=== PATIENT | female | born 1935 | race Caucasian/White ===

== ENCOUNTER 2016-05-06 14:43 | Inpatient (IN) | payer OTHER, MEDICARE ==
[~2016-05-06] VITALS: Ht 149.9 cm; Wt 40.8 kg
[~2016-05-06 14:43] MED LIST: ACEPHEN650 M1 PR; ALEVE220 M1 PO; AUGMENTIN 875875 MG PO; BISAC-EVAC10 M1 PR; CHILDREN'S ASPI81 M1 PO; COMPAZINE25 M1 PR; DICYCLOMINE HCL20 M1 PO; ESCITALOPRAM OX10 MG PO; FLEET ENEMA EX230 ML RC; GAS-X125 MG PO; LOPERAMIDE2 M2 PO; MAPAP ARTHRITI650 M1 PO; MELATONIN3 M4 PO; MILK OF MA400 MG/52 PO; MULTIPLE VITAM1 EAC2 PO; OYSTER SHELL C1 EAC9 PO; PRINIVIL20 M1 PO; VITAMIN B-121000 MCG PO; ZOFRAN4 M2 PO
--- NOTE | 2016-05-06 14:47 | ED GI/GU/ABDOMINAL COMPLAINT ---
History of Present Illness General Chief Complaint: Abdominal Pain/Flank Pain Stated Complaint: BIBA FOR ABD PAIN Source: patient, family, EMS Exam Limitations: no limitations Vital Signs & Intake/Output Vital Signs & Intake/Output ED Intake and Output 05/11 0000 05/10 1200 Intake Total 480 200 Output Total Balance 480 200 Intake, IV 0 0 Intake, Oral 480 200 Number 0 0 Bowel Movements Allergies Coded Allergies: meperidine (From DEMEROL) (DIARRHEA 05/06/16) Reconcile Medications Acetaminophen (Mapap Arthritis Pain) 650 MG TABLET.ER 1 TAB PO Q4 HRS NEEDED PRN PAIN (Reported) Acetaminophen (Acephen) 650 MG SUPP.RECT 1 SUP OR Q4 HRS NEEDED PRN PAIN ( Reported) Aspirin (Children's Aspirin) 81 MG TAB.CHEW 1 TAB PO DAILY HEART HEALTH ( Reported) Augmentin (Augmentin 500-125 Tablet) 500 MG-125 MG TABLET 500 MG PO Q12 uti please start by giving one tonight and cont' BID for another 9 days. Bisacodyl (Bisac-Evac) 10 MG SUPP.RECT 1 SUPP OR DAILY NEEDED PRN CONSTIPATION (Reported) Calcium Carbonate/Vitamin D3 (Oyster Shell Calcium +D Tablet) 500 MG-200 TABLET 1 TAB PO DAILY SUPPLEMENT (Reported) Cyanocobalamin (Vitamin B-12) 1,000 MCG TABLET 1 TAB PO DAILY SUPPLEMENT ( Reported) Dicyclomine HCl 20 MG TABLET 1 TAB PO TID PRN GI (Reported) Escitalopram Oxalate 10 MG TABLET 1.5 TAB PO DAILY DEPRESSION (Reported) Lisinopril (Prinivil) 20 MG TABLET 1 TAB PO DAILY HTN (Reported) Loperamide HCl (Loperamide) 2 MG CAPSULE 1 CAP PO Q6 PRN LOOSE STOOLS ( Reported) Magnesium Hydroxide (Milk Of Magnesia) 400 MG/5 ML ORAL.SUSP 30 ML PO DAILY NEEDED PRN CONSTIPATION (Reported) Melatonin 3 MG TABLET 1 TAB PO QPM PRN SLEEP (Reported) Multivitamin (Multiple Vitamins) 1 EACH TABLET 1 TAB PO DAILY SUPPLEMENT ( Reported) Na Phos,M-B/Na Phos,Di-Ba (Fleet Enema Extra) 19 GRAM-7 GRAM/197 ML ENEMA 1 E RC DAILY PRN CONSTIPATION (Reported) Naproxen Sodium (Aleve) 220 MG CAPSULE 1 TAB PO BID PRN PAIN (Reported) Nitrofurantoin Macrocrystal (Nitrofurantoin) 50 MG CAPSULE 1 CAP PO QPM ANTIBIOTIC, INFECTION (Reported) Omeprazole 20 MG CAPSULE.DR 1 CAP PO DAILY GI (Reported) Ondansetron HCl (Zofran) 4 MG TABLET 1 TAB PO Q8P PRN NAUSEA/VOMITING ( Reported) Prochlorperazine (Compazine) 25 MG SUPP.RECT 1 SUP OR DAILY PRN NAUSEA/ VOMITING (Reported) Simethicone (Gas-X) 125 MG CAPSULE 1 TAB PO Q6-PRN PRN ABDOMINAL PAIN ( Reported) Triage Nurses Notes Reviewed? yes ? N Is pt currently ? No Onset: Abrupt Duration: day(s): (3) Timing: single episode today Quality/Severity: moderate, sharpness Severity Numbers: 10 Location: periumbilical Radiation: no radiation Activities at Onset: none No Modifying Factors: none Associated Symptoms: abdominal pain, fever/chills, nausea/vomiting HPI: 81 year old female presents to [facility] ER for chief complaint of nausea, vomiting multiple times after eating mac and cheese that her daughter had brought her for birthday lunch. She had a documented fever there. Patient states she wasn't feeling well for the past 3 days. Daughter ate the same food without any problems. Complains of pain med abdomen, weakness. No diarrhea. Denies blood in stool or vomitus. She was given a dose of zofran at the [facility] prior to arrial. Patient presents febrile, tachycardic, hypotensive. She is AAO x 3. Past History Travel History Traveled to [place] past 21 day No Medical History Any Pertinent Medical History? 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 SISTER (colon cancer). Hx Contributory? No Review of Systems Review of Systems Constitutional: Reports: fever. Denies: chills. EENTM: Reports: no symptoms. Respiratory: Denies: cough, short of breath. Cardiovascular: Denies: chest pain, palpitations. GI: Reports: abdominal pain, bloating, constipation, nausea, vomiting. Genitourinary: Denies: discharge, dysuria. Musculoskeletal: Reports: no symptoms. Skin: Reports: no symptoms. Neurological/Psychological: Reports: no symptoms. Hematologic/Endocrine: Denies: bruising, bleeding, polyuria, polydipsia. Immunologic/Allergic: Denies: splenectomy. All Other Systems: Reviewed and Negative Physical Exam Physical Exam General Appearance: well developed/nourished, alert, awake, moderate distress, obese Head: atraumatic, normal appearance Eyes: Bilateral: PERRL, EOMI. Ears, Nose, Throat, Mouth: hearing grossly normal, dry mucus membranes Neck: normal inspection, supple, full range of motion Respiratory: normal breath sounds, chest non-tender, no respiratory distress Cardiovascular: tachycardia Peripheral Pulses: 1+ radial (R), 1+ radial (L) Gastrointestinal: soft, tenderness (MID ABDOMEN), NO REBOUND OR GUARDING Back: normal inspection Extremities: normal range of motion Neurologic/Psych: awake, alert, oriented x 3, depressed affect Skin: warm/dry, diaphoresis Core Measures ACS in differential dx? No Severe Sepsis Present: Yes Septic Shock Present: Yes BC x2: Yes Lactic Acid: Yes IV ABX Broad Spectrum: Yes Focused Exam Completed: Yes NS/LR 30ml/kg w/in 3hrs: Yes IV Vasopressors started: No (PATIENT REFUSED) ED Sepsis Exam Date of Focused Sepsis Exam: 05/06/16 Time of Focused Sepsis Exam: 1450 Sepsis Cardiac Exam: Tachycardia Sepsis Resp Exam: CTA Sepsis Cap Refill Exam: >2 sec Sepsis Peripheral Pulse Exam: Weak Sepsis Peripheral Pulse Location: Radial Sepsis Skin Color Exam: Pale Skin Temp/Moisture Exam: Hot/Diaphoretic Progress Differential Diagnosis: AAA, bowel obstruction, cholecystitis, gastritis, hepatitis, hernia, ischemic bowel, inflamm bowel dis, pancreatitis, peptic ulcer , PUD/GERD, perforated viscous, SBO Plan of Care: Orders Procedure Date/time Status OXYGEN 05/10 UNK Complete OXYGEN DAILY CHARGE 05/10 UNK Complete IV FLUIDS, TYLENOL, LABS, CULTURES, CT ABDOMEN ORDERED. REPEAT FLUID BOLUS ORDERED. PATIENT REMAINS AAO X 3. STILL HYPOTENSIVE. PATIENT IS DNR/DNI. DISCUSSED POSSIBLITY OF CENTRAL LINE/PRESSORS WHICH PATIENT DOES NOT WANT. IV ABX ORDERED. CT SCAN REVEALS HYDRONEPHROSIS BILATERALLY. UNABLE TO PLACE GLEZ CATHETER SECONDARY TO PHYSICAL CHANGES ON THE PERINEUM AFTER RADIATION THERAPY. DISCUSSED WITH DR IVERSON. SUPRAPUBIC GLEZ TOO RISKY AT BEDSIDE SECONDARY TO SURGICAL HISTORY AND THAT PATIENT IS SPONTANEOUSLY DRAINING HER BLADDER. NOT A CANDIDATE FOR OR AT THIS TIME SHE IS HYPOTENSIVE. D/W HOSPITALIST AT LENGTH. WILL ADMIT TO ICU. DR IVERSON: CELL [phone] HOME [phone] (ESDRAS WRIGHT,BHASKAR) Diagnostic Imaging: Viewed by Me: Radiology Read, CT Scan. Discussed w/RAD: Radiology Read, CT Scan. Radiology Impression: PATIENT: FELICIANO SMITH PRESENT AGE: 81 PATIENT ACCOUNT NO: [id number] : 34 LOCATION: [facility] ORDERING PHYSICIAN: BHASKAR DEWITT MD SERVICE DATE: 05/06/16 EXAM TYPE: CAT - CT ABD & PELVIS W/O IV CONTRAS EXAMINATION: CT ABDOMEN AND PELVIS WITHOUT CONTRAST CLINICAL INFORMATION: Abdominal pain. Vomiting. Fever. Rule out colitis , small-bowel obstruction, and ileus. COMPARISON: CT abdomen and pelvis of 09/02, 08/31/2014 and 02/14/2013. TECHNIQUE: Multidetector volumetric imaging was performed from the superior aspect of the liver through the pubic symphysis. Sagittal and coronal reformatted images were obtained on the technologist's workstation. DLP: 533.73 mGy-cm FINDINGS: LUNG BASES: There is an incompletely seen 0.6 cm subpleural nodule at the right lung base in the lower lobe anteriorly (series 2 image 1) which is a stable finding since the previous study of February 2013. There are mild dependent changes at the lung bases. LIVER, GALLBLADDER, AND BILIARY TREE: The liver is normal in size, shape, and attenuation. No focal hepatic lesion or biliary ductal dilatation is present. The gallbladder is unremarkable with no evidence of radiopaque gallstones, gallbladder wall thickening, or obvious pericholecystic inflammatory changes. PANCREAS: Unremarkable. SPLEEN: Unremarkable. ADRENAL GLANDS: Nodular appearance of the bilateral adrenal glands is stable since previous CT of 02/14/2013. KIDNEYS AND URETERS: The kidneys are small in size and normal in attenuation. Multiple nonobstructing left renal calculi are noted including 3 to 4, 0.4 cm calculi in the upper to mid kidney. There is a staghorn-type calculus in the lower pole collecting system of the left kidney measuring 0.8 cm. A few punctate calculi are noted in the left renal lower pole collecting system. There is a 0.9 cm calculus in the left renal pelvis. No left hydronephrosis or perinephric stranding. There is moderate right hydronephrosis and right hydroureter; the hydronephrosis has mildly improved compared to last CT. Small portion of the right distal ureter is relatively narrow in caliber, remainder of the ureter is dilated. There is bilateral renal cortical thinning greater on the right compared to left. A 1.3 cm exophytic right renal upper pole cyst is again noted, without significant interval change. Please note that evaluation in the pelvis is limited due to streaking artifacts from the left total hip arthroplasty hardware. BLADDER: Significantly underdistended and therefore not optimally evaluated. GASTROINTESTINAL TRACT: There is moderate diverticulosis of the sigmoid colon and descending colon and mild diverticulosis of the remainder of the colon. No evidence of colonic wall thickening or pericolonic fat stranding. An appendix is not identified; however, there are no inflammatory changes in the expected location of the appendix. The small-bowel loops are not dilated. Tiny isolated diverticulum is noted from the terminal ileum. The stomach is decompressed. PERITONEAL CAVITY: There is no evidence of free intraperitoneal air or fluid. No inflammatory changes or nodularity are seen. ABDOMINAL WALL: No significant hernia is appreciated. LYMPH NODES: No evidence of pathologically enlarged lymph nodes. VASCULAR: Scattered calcific atherosclerosis of the aorta and significant atherosclerosis of the iliac arteries without aneurysmal dilatation. Peripherally calcified splenic artery aneurysm is noted measuring 1.6 cm in maximum dimension. PELVIC VISCERA: The uterus is not seen, likely surgically absent. The adnexa are unremarkable. OSSEOUS STRUCTURES: There is significant diffuse osseous demineralization. Note is made of bilateral pubic rami healed fractures. Left total hip arthroplasty hardware is in place. Facet arthropathy is noted in the lumbar spine. Compression fractures of the multiple lumbar vertebral bodies with the most severe compression fracture of L5 are stable compared to last study of 2014. The [id number]-[id number] compression fractures of the lower thoracic vertebral bodies from T8 to T12 are new compared to previous CT of 2014. No suspicious osseous lesion. IMPRESSION: 1. No CT evidence of colitis, ileus or small-bowel obstruction. Colonic diverticulosis without acute diverticulitis. 2. No acute or other significant abnormality is identified to explain patient's symptoms. 3. Multiple nonobstructing left renal calculi, some of the calculi are new compared to previous study with a calculus in the left renal pelvis extending into the ureteral pelvic junction. Mild interval decrease in the moderate right hydronephrosis. Persistent moderate right hydroureter. 4. Compression fractures of T9 through T12 bodies are new compared to previous CT of August 2014. DICTATED BY: GEOVANI DUMONT MD DATE/TIME DICTATED:05/06/161636 VISION CARE ASSOCIATE:JIHAN DATE/TIME TRANSCRIBED:1636 CONFIDENTIAL, DO NOT COPY WITHOUT APPROPRIATE AUTHORIZATION. < Electronically signed in Other Vendor System> SIGNED BY: TIM WRIGHT,GEOVANI [id number] CXR Impression: no acute abnormality, no infiltrates Initial ED EKG: SINUS TACHYCARDIA Rhythm Strip: sinus tachycardia Departure Departure Time of Disposition: 1924 Disposition: STILL A PATIENT Condition: Stable Clinical Impression Primary Impression: Sepsis Secondary Impressions: Abdominal pain, Fever, Hyponatremia, Renal calculi Referrals: PRAKASH WRIGHT,TIM Oswald (PCP/Family) Departure Forms: Customer Survey General Discharge Information Prescriptions: Current Visit Scripts Augmentin (Augmentin 500-125 Tablet) 500 MG PO Q12 #19 please start by giving one tonight and cont' BID for another 9 days. Admission Note Spoke With: GERALDO RODRIGUEZ MD Documentation of Exam: Documentation of any treatments & extenuating circumstances including Concerns Regarding Discharge (functional status, medication knowledge or non-compliance, living conditions, etc.) that warrant an admission rather than observation: [ICU MONITOR, IV ABX, FLUID RESUSSCITATION, MONITOR I/O, F/U CULTURES, SERIAL ABDOMINAL EXAMINATIONS, UROLOGY CONSULTATION DR IVERSON] Observation Note Spoke With: TARUN WRIGHT,SUPRIYA Physician Advisor Notified: EDUARDO WRIGHT,SHERRIE [address] Patient In: Non-ED OBS Care Area Rationale for Observation: My rational for observation is as follows [ICU MONITOR, IV ABX, F/U BLOOD CULTURES, OBTAIN URINE SAMPLE, UROGYN CONSULT]. Critical Care Note Critical Care Note Critical Care Time: 75-104 min
[2016-05-06] MEDS ORDERED: NITROFURANTOIN50 M1 PO (15:00)
[2016-05-06] MEDS ORDERED: OMEPRAZOLE20 M2 PO (15:01)
--- NOTE | 2016-05-06 15:01 | NUR ---
PT GILBERTO FROM [facility]. PER EMS PT ATE [facility] FOR LUNCH AND SINCE THEN SHE HAS BEEN HAVING ABD CRMAPING AND VOMITING AND NAUSEA. PT RECIEVED TABBY NULL FROM FACILITY. PT ARRIVES ALERT. PT WARM TO TOUCH, TEMP 101.1 AT THIS TIME. HR 120S ON MONTIOR. BP 93/53. MD TO BEDSIDE. IV EST. PT C/O ABD PAIN AT THIS TIME, STATES PAIN IS CRAMPING IN NATURE.
[2016-05-06] MEDS ORDERED: VITAMIN B-121000 MC3 PO (15:03)
--- NOTE | 2016-05-06 15:22 | NUR ---
PT MEDICATED PER EMAR AT THIS TIME.
[2016-05-06 15:30] LABS: ABSOLUTE BASOPHIL COUNT 0 /CUMM (0.0-0.2); ABSOLUTE EOSINOPHIL COUNT 0.1 /CUMM (0.0-0.7); ABSOLUTE GRANULOCYTE CT 15.5 /CUMM (1.4-6.5); ABSOLUTE LYMPH COUNT 0.6 /CUMM (1.2-3.4); ABSOLUTE MONOCYTE COUNT 0.7 /CUMM (0.10-0.60); BASOPHIL % 0.2 % (0.0-2.0); EOSINOPHIL % 0.5 % (0-5); HEMATOCRIT 37.6 % (37-47); MEAN CORPUSCULAR HGB 29.7 PG (27.0-31.0); MEAN CORPUSCULAR HGB CONC 32.4 G/DL (33.0-37.0); MEAN CORPUSCULAR VOLUME 91.5 FL (81.0-99.0); MEAN PLATELET VOLUME 7.4 FL (7.4-10.4); PLATELET COUNT 433 /CUMM (130-400); RBC DISTRIBUTION WIDTH 15.1 % (11.5-14.5); RED BLOOD CELL CT 4.11 /CUMM (4.20-5.40)
[2016-05-06 15:32] LABS: GRANULOCYTE % 91.4 % (42.2-75.2)
[2016-05-06 15:35] LABS: PT 13.6 SEC (9.4-12.5); PTT 29 SEC (25-37)
--- NOTE | 2016-05-06 16:18 | NUR ---
PTS BP 64/40 AT THIS TIME. MD AWARE AND PT BEDSIDE. SECOND IV EST. NORMAL SALINE INFUSING PER ORDER. PT APPEARS CONFSUED AT TIME. SATS 88-90% ON ROOM AIR. PT PLACED ON 2L NC AND SATS INCREASED TO 97% AT THIS TIME.HR 80s ON MONTIOR. BLOD CULTURES X2 DRAWN ADN SENT TO LAB. IV ROCEPHIN GIVEN AT THIS TIME.
--- NOTE | 2016-05-06 16:31 | NUR ---
ATTEMPTED TO SRAIGHT CATH PT. PT NOTED WITH HARDNESS AND SWELLING TO LABIA. MD TO BEDSIDE. PER MD, PT IS NOT TO BE STRAIGHT CATH'D. U-BAG IN PLACE. PER PT AND DAUGHTER, PT HAS HX OF RADIATION PT GROIN AREA FOR CA AND THE PERIAREA HAS BEEN LIKE THAT SINCE. PERICARE PROVIDED AT THIS TIME.
--- NOTE | 2016-05-06 16:44 | NUR ---
PT TO AND FROM CT SCAN ON CONTRACT ACCOUNTANT WITH THIS RN IN ATTENDANCE AND MD. PT BACK IN ROOM. BP 97/53 AT THIS TIME. TEMP 99.8. PT REMAINS ALERT AND CONFUSED AT TIMES. PER DAUGHTER THIS IS NORMAL MENTATION FOR PT.
--- NOTE | 2016-05-06 16:46 | NUR ---
IV FLAGYL INFUSING PER ORDER AT THIS TIME
--- NOTE | 2016-05-06 17:39 | CT SCAN REPORT ---
EXAMINATION: CT ABDOMEN AND PELVIS WITHOUT CONTRAST CLINICAL INFORMATION: Abdominal pain. Vomiting. Fever. Rule out colitis, small-bowel obstruction, and ileus. COMPARISON: CT abdomen and pelvis of 09/02/2014, 08/31/2014 and 02/14/2013. TECHNIQUE: Multidetector volumetric imaging was performed from the superior aspect of the liver through the pubic symphysis. Sagittal and coronal reformatted images were obtained on the technologist's workstation. DLP: 533.73 mGy-cm FINDINGS: LUNG BASES: There is an incompletely seen 0.6 cm subpleural nodule at the right lung base in the lower lobe anteriorly (series 2 image 1) which is a stable finding since the previous study of February 2013. There are mild dependent changes at the lung bases. LIVER, GALLBLADDER, AND BILIARY TREE: The liver is normal in size, shape, and attenuation. No focal hepatic lesion or biliary ductal dilatation is present. The gallbladder is unremarkable with no evidence of radiopaque gallstones, gallbladder wall thickening, or obvious pericholecystic inflammatory changes. PANCREAS: Unremarkable. SPLEEN: Unremarkable. ADRENAL GLANDS: Nodular appearance of the bilateral adrenal glands is stable since previous CT of 02/14/2013. KIDNEYS AND URETERS: The kidneys are small in size and normal in attenuation. Multiple nonobstructing left renal calculi are noted including 3 to 4, 0.4 cm calculi in the upper to mid kidney. There is a staghorn-type calculus in the lower pole collecting system of the left kidney measuring 0.8 cm. A few punctate calculi are noted in the left renal lower pole collecting system. There is a 0.9 cm calculus in the left renal pelvis. No left hydronephrosis or perinephric stranding. There is moderate right hydronephrosis and right hydroureter; the hydronephrosis has mildly improved compared to last CT. Small portion of the right distal ureter is relatively narrow in caliber, remainder of the ureter is dilated. There is bilateral renal cortical thinning greater on the right compared to left. A 1.3 cm exophytic right renal upper pole cyst is again noted, without significant interval change. Please note that evaluation in the pelvis is limited due to streaking artifacts from the left total hip arthroplasty hardware. BLADDER: Significantly underdistended and therefore not optimally evaluated. GASTROINTESTINAL TRACT: There is moderate diverticulosis of the sigmoid colon and descending colon and mild diverticulosis of the remainder of the colon. No evidence of colonic wall thickening or pericolonic fat stranding. An appendix is not identified; however, there are no inflammatory changes in the expected location of the appendix. The small-bowel loops are not dilated. Tiny isolated diverticulum is noted from the terminal ileum. The stomach is decompressed. PERITONEAL CAVITY: There is no evidence of free intraperitoneal air or fluid. No inflammatory changes or nodularity are seen. ABDOMINAL WALL: No significant hernia is appreciated. LYMPH NODES: No evidence of pathologically enlarged lymph nodes. VASCULAR: Scattered calcific atherosclerosis of the aorta and significant atherosclerosis of the iliac arteries without aneurysmal dilatation. Peripherally calcified splenic artery aneurysm is noted measuring 1.6 cm in maximum dimension. PELVIC VISCERA: The uterus is not seen, likely surgically absent. The adnexa are unremarkable. OSSEOUS STRUCTURES: There is significant diffuse osseous demineralization. Note is made of bilateral pubic rami healed fractures. Left total hip arthroplasty hardware is in place. Facet arthropathy is noted in the lumbar spine. Compression fractures of the multiple lumbar vertebral bodies with the most severe compression fracture of L5 are stable compared to last study of 2014. The [id number] compression fractures of the lower thoracic vertebral bodies from T8 to T12 are new compared to previous CT of 2014. No suspicious osseous lesion. IMPRESSION: 1. No CT evidence of colitis, ileus or small-bowel obstruction. Colonic diverticulosis without acute diverticulitis. 2. No acute or other significant abnormality is identified to explain patient's symptoms. 3. Multiple nonobstructing left renal calculi, some of the calculi are new compared to previous study with a calculus in the left renal pelvis extending into the ureteral pelvic junction. Mild interval decrease in the moderate right hydronephrosis. Persistent moderate right hydroureter. 4. Compression fractures of T9 through T12 bodies are new compared to previous CT of August 2014.
--- NOTE | 2016-05-06 17:40 | NUR ---
MD AT BEDSIDE TO DISUCSS RESULTS AND PLAN OF CARE WITH PT AND FAMILY. BP 84/63 AT THIS TIME.
--- NOTE | 2016-05-06 17:42 | NUR ---
PT REQUESTING WATER, PER ITS OK FOR PT TO DRINK
--- NOTE | 2016-05-06 18:02 | NUR ---
XRAY AT BEDSIDE
--- NOTE | 2016-05-06 18:19 | RADIOLOGY REPORT ---
EXAMINATION: CHEST 1 VIEW CLINICAL INFORMATION: Fever, hypotension. COMPARISON: 08/31/2014. TECHNIQUE: An AP view of the chest is provided. FINDINGS: The cardiac silhouette is stable. The mediastinal and hilar contours are unremarkable. There are neither pleural effusions nor pneumothoraces. There are no consolidations. The osseous structures are unremarkable. IMPRESSION: No evidence for acute disease.
--- NOTE | 2016-05-06 18:41 | NUR ---
BP 76/00 WITH DOPPLER AT THIS TIME. PT REMAINS ALERT AND INTERACTING WITH STAFF MEMBERS AT THIS TIME. MD TO BEDSIDE. DAUGHTER REMAINS AT BEDSIDE
--- NOTE | 2016-05-06 18:54 | NUR ---
REPEAT LACTIC DRAWN AND SENT TO LAB. BLADDER SCANNER PERFORMED WITH RESULTS OF 0ML AT THIS TIME. MD AT BEDSIDE AND AWARE.
--- NOTE | 2016-05-06 18:56 | NUR ---
ONLY SMALL AMOUNT OF URINE IN U-BAG AT THIS TIME. NOT ENOUGH FOR URINE SAMPLE.
--- NOTE | 2016-05-06 19:24 | History & Physical ---
See Addendum General Information and HPI MD Statement: I have seen and personally examined FELICIANO SMITH and documented this H&P. The patient is a 81 year old F who presented with a patient stated chief complaint of [abdominal pain]. Source of Information: family, old records, [employer] [facility] [employer] [facility] [employer] Exam Limitations: poor historian History of Present Illness: 81-year-old obese, bed-bound woman , resident of [facility], was BIBA for abdominal pain. 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 Today the history was obtained from few [facility]. According to [employer] [facility] [employer] [facility] [employer] documentation patient is Normal state of health up until today when she developed a mild generalized made ( periumbilical) crampy abdominal pain. Her vital signs are [employer] within normal limits no fever or hypotension was detected. Patient had 2 episodes of normal bowel movements. She ate 2 bites of macaroni and cheese that her daughter brought her her afterwards she felt nauseous and vomited twice mainly food no blood. These findings are concerning for a daughter who was visiting from [place]. Ambulance was called and patient was transferred to the emergency room. Initially in the emergency room patient was hypotensive around 93/53, MAP of 66 and HR of 123 and RR 18 98% on 2lit (not her baseline). Patient received 3.5 of bolous NS and remained Hypotensive with the last BP documented in the ED chart as 76 over pulse. Patient is a very poor historian and ROS was very limited. patient denies any CP, SOB, /GI symptoms, abdominal pain, cough/sputum production ( which was also mentined by [facility] nurse). PMH: aformentioned, Medications were reconciled; SH: resident of [employer]. She got a CT scan w/o contrast, which was indicative of Multiple nonobstructing left renal calculi, some of the calculi are newcompared to previous study with a calculus in the left renal pelvis extending into the ureteral pelvic junction. Mild interval decrease in the moderate right hydronephrosis. Persistent moderate right hydroureter.Dr. Lopez was consulted but unfortunately there is nothing that could be done overnight from urology standing point. She is a restriect DNR/DNI and was admitted to ICU for observation. Allergies/Medications Allergies: Coded Allergies: meperidine (From DEMEROL) (DIARRHEA 05/06/16) Home Med list Acetaminophen (Mapap Arthritis Pain) 650 MG TABLET.ER 1 TAB PO Q4 HRS NEEDED PRN PAIN (Reported) Acetaminophen (Acephen) 650 MG SUPP.RECT 1 SUP IL Q4 HRS NEEDED PRN PAIN ( Reported) Aspirin (Children's Aspirin) 81 MG TAB.CHEW 1 TAB PO DAILY HEART HEALTH ( Reported) Bisacodyl (Bisac-Evac) 10 MG SUPP.RECT 1 SUPP IL DAILY NEEDED PRN CONSTIPATION (Reported) Calcium Carbonate/Vitamin D3 (Oyster Shell Calcium +D Tablet) 500 MG-200 TABLET 1 TAB PO DAILY SUPPLEMENT (Reported) Cyanocobalamin (Vitamin B-12) 1,000 MCG TABLET 1 TAB PO DAILY SUPPLEMENT ( Reported) Dicyclomine HCl 20 MG TABLET 1 TAB PO TID PRN GI (Reported) Escitalopram Oxalate 10 MG TABLET 1.5 TAB PO DAILY DEPRESSION (Reported) Lisinopril (Prinivil) 20 MG TABLET 1 TAB PO DAILY HTN (Reported) Loperamide HCl (Loperamide) 2 MG CAPSULE 1 CAP PO Q6 PRN LOOSE STOOLS ( Reported) Magnesium Hydroxide (Milk Of Magnesia) 400 MG/5 ML ORAL.SUSP 30 ML PO DAILY NEEDED PRN CONSTIPATION (Reported) Melatonin 3 MG TABLET 1 TAB PO QPM PRN SLEEP (Reported) Multivitamin (Multiple Vitamins) 1 EACH TABLET 1 TAB PO DAILY SUPPLEMENT ( Reported) Na Phos,M-B/Na Phos,Di-Ba (Fleet Enema Extra) 19 GRAM-7 GRAM/197 ML ENEMA 1 E RC DAILY PRN CONSTIPATION (Reported) Naproxen Sodium (Aleve) 220 MG CAPSULE 1 TAB PO BID PRN PAIN (Reported) Nitrofurantoin Macrocrystal (Nitrofurantoin) 50 MG CAPSULE 1 CAP PO QPM ANTIBIOTIC, INFECTION (Reported) Omeprazole 20 MG CAPSULE.DR 1 CAP PO DAILY GI (Reported) Ondansetron HCl (Zofran) 4 MG TABLET 1 TAB PO Q8P PRN NAUSEA/VOMITING ( Reported) Prochlorperazine (Compazine) 25 MG SUPP.RECT 1 SUP IL DAILY PRN NAUSEA/ VOMITING (Reported) Simethicone (Gas-X) 125 MG CAPSULE 1 TAB PO Q6-PRN PRN ABDOMINAL PAIN ( Reported) Compliance With Home Meds: GOOD Past History Travel History Traveled to [place] past 21 day No Medical History Neurological: NONE, NEUROPATHY EENT: cataracts, new right hydronephrosis Cardiovascular: hypertension Respiratory: NONE Gastrointestinal: colitis, Crohn's disease Hepatic: NONE Renal: NONE Musculoskeletal: spinal stenosis, FOOT DROP Psychiatric: depression Endocrine: NONE Blood Disorders: NONE Cancer(s): VAGINAL CA s/p radiation and hysterectomy [employer] BROOMC[employer] THRESHING/Reproductive: NONE History of MRSA: No History of VRE: No History of CDIFF: No Surgical History Surgical History: L HIP REPLACEMENT Past Family/Social History Family History Relations & Conditions if any MOTHER (ovarian cancer). SISTER (colon cancer). Psychosocial History Where do you live[facility] Facility Services at Home: Home Health Aide, Nursing Living Will? yes Power of Shucker/HCP? her daughter Functional Ability ADLs Needs Assist: dressing, eating, toileting, bathing. Ambulation: wheelchair-bound IADLs Needs Assist: shopping, housework, finances, food prep, telephone, transportation, medication admin. Review of Systems Review of Systems Constitutional: Reports: see HPI. EENTM: Reports: see HPI. Cardiovascular: Reports: see HPI. Respiratory: Reports: see HPI. GI: Reports: see HPI, abdominal pain. Genitourinary: Reports: see HPI. Denies: dysuria, frequency, hematuria, hesitation, nocturia, pain, urgency. Skin: Reports: see HPI. All Other Systems: Reviewed and Negative Exam & Diagnostic Data Last 24 Hrs of Vital Signs/I&O Vital Signs Date Time Temp Pulse Resp B/P Pulse O2 O2 Flow FiO2 Ox Delivery Rate 05/06 1841 99.2 80 18 76/00 98 Nasal 2.0L Cannula 05/06 1740 99.6 90 18 84/63 95 Nasal 2.0L Cannula 05/06 1645 99.8 93 18 97/53 98 Nasal 2.0L Cannula 05/06 1619 100.4 83 18 64/40 97 Nasal 2.0L Cannula 05/06 1551 100.4 05/06 1519 101.1 05/06 1504 108 18 101/58 94 Room Air 05/06 1501 94 Room Air 05/06 1450 101.1 123 18 93/53 92 Room Air Intake & Output 05/06 1600 05/06 0800 05/06 0000 Intake Total Output Total Balance Patient 160 lb Weight Physical Exam General Appearance Alert, Oriented X3, Cooperative, No Acute Distress Skin decubitus ulcer starge 1 HEENT Atraumatic Neck No JVD Lymphatic Axillary nl, Cervical nl Cardiovascular Normal S1, Normal S2, No Murmurs Lungs Clear to Auscultation, Normal Air Movement Abdomen Soft Neurological Normal Speech Extremities No Clubbing, No Cyanosis, No Edema, Normal Pulses, READINESS PARAPROFESSIONAL: normal Vascular Normal Pulses, Pulses Symmetrical Last 24 Hrs of Labs/Colby: Laboratory Tests 05/06/16 1853: Lactic Acid 1.1 05/06/16 151: Anion Gap 9, Estimated GFR > 60, BUN/Creatinine Ratio 25.0, Glucose 124 H, Serum Osmolality 290, Lactic Acid 1.6, Calcium 9.1, Total Bilirubin 0.9, AST 42 H, ALT 33, Alkaline Phosphatase 116, Troponin I 0.09, Total Protein 6.0 L, Albumin 2.7 L, Globulin 3.3, Albumin/Globulin Ratio 0.8 L, Lipase 25, PT 13.6 H, INR 1.30 H, APTT 29, CBC w Diff MAN DIFF ORDERED, RBC 4.11 L, MCV 91.5, MCH 29.7, RDW 15.1 H, MPV 7.4, Gran % 91.4 H, Lymphocytes % 3.6 L, Monocytes % 4.3, Eosinophils % 0.5, Basophils % 0.2, Absolute Granulocytes 15.5 H, Segmented Neutrophils 88 H, Band Neutrophils 4, Absolute Lymphocytes 0.6 L, Lymphocytes 4 L, Monocytes 3, Absolute Monocytes 0.7 H, Absolute Eosinophils 0.1, Basophils 1, Absolute Basophils 0, Platelet Estimate ADEQUATE, Normocytic RBCs VERIFIED, Normochromic RBCs VERIFIED, Polychromasia , PUBS MCHC 32.4 L Microbiology 05/06 1558 BLOOD: Blood Culture - RECD 05/06 151 BLOOD: Blood Culture - RECD Diagnostic Data EKG Results Sinus tachycardia Wide QRS left bundle branch block did not exist in the past EKG CXR Results No acute finding Other Results abd and pelvic CT: Multiple nonobstructing left renal calculi are noted including 3 to 4, 0.4 cm calculi in the upper to mid kidney. There is a staghorn-type calculus in the lower pole collecting system of the left kidney measuring 0.8 cm. A few punctate calculi are noted in the left renal lower pole collecting system. There is a 0.9 cm calculus in the left renal pelvis. No left hydronephrosis or perinephric stranding. There is moderate right hydronephrosis and right hydroureter; the hydronephrosis has mildly improved compared to last CT. Small portion of the right distal ureter is relatively narrow in caliber, remainder of the ureter is dilated. Assessment/Plan Assessment: 81-year-old woman with multiple comorbidities and significant past medical history was admitted for possible sepsis. Pertinent data WBC 17,000 with significant left shift or bandemia hemoglobin of 12.2 hematocrit of 37.2 platelet count 433, SOFA score : 2 possible sepsis with disorders of urinary tract considering persistent right-sided hydronephrosis. Sodium 129, potassium 4.6, AG 9 BUN 20 creatinine 0.8 lactic acid 1.6 AST 42 ALT 35 Treatment in the emergency room: Patient received 3 L and a half normal saline and 1 dose of ceftriaxone 1 dose of metronidazole. List of active problems #1 possible sepsis without evidence of end organ damage. Possible sources are A ) urinary tract, B) gastrointestinal (CT scan was negative for colitis) however colitis is not out of the picture completely. Possible bacteria is from GI ( gram negatives) and C. difficile is to be ruled out. * Admit to ICU for close observation * Chopped pur diets * Continue IV hydration normal saline goal to maintain MAP above 65 * Ins and outs; goal to maintain urine output above 0.5 mL per KG per hour * Initial lactate was negative however with a repeat the lactic acid 1 more time * Continue IV antibiotics; ceftriaxone 1000 ML per day * Send urine culture, blood cultures * check cortisol lvl * Follow urology recommendation in the a.m. on Monday regarding placement of suprapubic catheter #2 intermittent LBB and wide QRS: Patient was seen by Dr. Antonio for the same finding in 2014. Dynamic EKG changes, could be suggestive of areas of occlusion and reversible ischemia or NSTEMI. * ID needs to be ruled out- first set was negative, repeat in 6 h w/ ekg * Echocardiogram * Monitor on telemetry * Check magnesium level and repeat if necessary * Continue aspirin * Lisinopril is held- due to hypotension * Consult cardiology in the am #3 isotonic hyponatremia. serum osm of 290msom/l and calculated Serum osm of 272mosm/l. Osm Gap of 18. This finding indiactes either lab error or the prescence of active osmolar agents: paraproteins, Lipids, suger. * follow urine osm and urine lyte * follow lipid profile and TSH DNR/DNI Tylenol for pain As Ranked By This Provider Problem List: 1. Essential hypertension 2. HYSTERECTOMY 1964 3. RADIATION COLITIS 4. UTI 5. VAGINAL CANCER 1980 6. Sepsis 7. Vaginitis 8. DVT prophylaxis 9. Hydronephrosis, right 10. Abdominal pain 11. Hyponatremia 12. Renal calculi Core Measures/Miscellaneous Acute Coronary Syndrome ACS Diagnosis: No Cerebrovascular Accident CVA/TIA Diagnosis: No Congestive Heart Failure CHF Diagnosis: No Venous Thromboembolism VTE Risk Factors: Acute medical illness, Age > 40, Immobility, paresis, Obesity No Mech VTE prophylaxis d/t: No contraindications No VTE Pharm Prophylaxis d/t: No contraindications VTE Diagnosis: No VTE Type: NONE VTE Confirmed by (Test): NONE Severe Sepsis Severe Sepsis Present: No Septic Shock Septic Shock Present: No BC x2: Yes Lactic Acid: Yes IV ABX Broad Spectrum: No Focused Exam Completed: Yes NS/LR 30ml/kg w/in 3hrs: Yes IV Vasopressors started: No Miscellaneous Documentation Attending Case Discussed With: SUPRIYA MCNEIL MD Primary Care Physician: TIM RANDALL MD Patient sees these Specialists blintze roller Level of Patient Care: Critical Care (CRI) Resident Review Statement Resident Statement: examined this patient, discussed with commercial internship, agreed with commercial internship, discussed with family, reviewed EMR data (avail), discussed with nursing , discussed with case mgmt, reviewed images, amended to note Attending MD Review Statement Attending Statement Attending MD Statement: examined this patient, discuss w/resident/PA/INSURANCE EXECUTIVE, agreed w/resident/PA/INSURANCE EXECUTIVE, discussed with family, reviewed EMR data (avail), discussed with nursing, discussed with case mgmt, reviewed images, amended to note
--- NOTE | 2016-05-06 19:28 | NUR ---
MD AT BEDSIDE TO ATTEMPT TO PLACE GLEZ AT THIS TIME. UNSUCCESSFUL ATTEMPT. PT INCONTINENT ON URINE, NO URINE IN U-BAG. PERICARE PROVIDED AND NEW LINEN PLACED ON BED. PT NOTED WITH SMALL FORMED BOWEL MOVEMENT.
--- NOTE | 2016-05-06 20:26 | NUR ---
PT RESTING ON BED. NS BOLUS CONTINUES TO INFUSE. DAUGHTER REMAINS AT BEDSIDE FOR EMOTIONAL SUPPORT.
--- NOTE | 2016-05-06 21:30 | NUR ---
PT HAS A BED 112-01
--- NOTE | 2016-05-06 21:41 | NUR ---
REPORT GIVEN TO JOANN CATALAN ON ICU.
--- NOTE | 2016-05-06 22:11 | Admission Certification ---
Admission Certification Certification Statement - As attending physician, I certify that at the time of - admission, based on clinical presentation, severity of - symptoms, need for further diagnostic testing and - therapeutic interventions, and risk of adverse outcomes - without in-hospital treatment, in my clinical assessment, - this patient requires an acute hospital stay for a minimum - of two nights or longer. I have also considered psychsocial - factors such as support system, advanced age, financial - issues, cognitive issues, and failed out-patient treatments, - past re-admission history, safety of patient, and lack of - compliance as applicable. Specific rationale supporting this admission is: Abdominal pain fever possible sepsis.
--- NOTE | 2016-05-06 22:12 | NUR ---
PAGER [phone] BEEPED REGARDING EKG.
--- NOTE | 2016-05-06 22:16 | PN- Att Addend ---
Attending Addendum Attending Brief Note 81 year old white female resident of [place] comes in with abdominal pain fever hypotension possible sepsis urological origen, was pancultured started on IV antibiotics IV fluids monitoring lactic acid, CBC , cbc urologist called will see patient will also have cardiology check patient monitor EKGs and troponins. Laboratory Tests 05/06 05/06 1853 1516 Chemistry Sodium (137 - 145 mmol/L) 129 L Potassium (3.5 - 5.1 mmol/L) 4.6 Chloride (98 - 107 mmol/L) 96 L Carbon Dioxide (22 - 30 mmol/L) 24 Anion Gap (5 - 16) 9 BUN (7 - 17 mg/dL) 20 H Creatinine (0.5 - 1.0 mg/dL) 0.8 Estimated GFR (>60 ml/min) > 60 BUN/Creatinine Ratio (7 - 25 %) 25.0 Glucose (65 - 99 mg/dL) 124 H Serum Osmolality (285 - 295 MOSM/KG) 290 Lactic Acid (0.7 - 2.1 mmol/L) 1.1 1.6 Calcium (8.4 - 10.2 mg/dL) 9.1 Total Bilirubin (0.2 - 1.3 mg/dL) 0.9 AST (14 - 36 U/L) 42 H ALT (9 - 52 U/L) 33 Alkaline Phosphatase (<127 U/L) 116 Troponin I (< 0.11 ng/ml) 0.09 Total Protein (6.3 - 8.2 g/dL) 6.0 L Albumin (3.5 - 5.0 g/dL) 2.7 L Globulin (1.9 - 4.2 gm/dL) 3.3 Albumin/Globulin Ratio (1.1 - 2.2 %) 0.8 L Lipase (23 - 300 U/L) 25 Coagulation PT (9.4 - 12.5 SEC) 13.6 H INR (0.90 - 1.19) 1.30 H APTT (25 - 37 SEC) 29 Hematology CBC w Diff MAN DIFF ORDERED WBC (4.8 - 10.8 /CUMM) 17.0 H RBC (4.20 - 5.40 /CUMM) 4.11 L Hgb (12.0 - 16.0 G/DL) 12.2 Hct (37 - 47 %) 37.6 MCV (81.0 - 99.0 FL) 91.5 MCH (27.0 - 31.0 PG) 29.7 RDW (11.5 - 14.5 %) 15.1 H Plt Count (130 - 400 /CUMM) 433 H MPV (7.4 - 10.4 FL) 7.4 Gran % (42.2 - 75.2 %) 91.4 H Lymphocytes % (20.5 - 51.1 %) 3.6 L Monocytes % (1.7 - 9.3 %) 4.3 Eosinophils % (0 - 5 %) 0.5 Basophils % (0.0 - 2.0 %) 0.2 Absolute Granulocytes (1.4 - 6.5 /CUMM) 15.5 H Segmented Neutrophils (42.2 - 75.2 %) 88 H Band Neutrophils (0.0 - 5.0 %) 4 Absolute Lymphocytes (1.2 - 3.4 /CUMM) 0.6 L Lymphocytes (20.5 - 51.1 %) 4 L Monocytes (1.7 - 9.3 %) 3 Absolute Monocytes (0.10 - 0.60 /CUMM) 0.7 H Absolute Eosinophils (0.0 - 0.7 /CUMM) 0.1 Basophils (0.0 - 2.0 %) 1 Absolute Basophils (0.0 - 0.2 /CUMM) 0 Platelet Estimate (ADEQUATE) ADEQUATE Normocytic RBCs VERIFIED Normochromic RBCs VERIFIED Polychromasia PUBS MCHC (33.0 - 37.0 G/DL) 32.[address] scan results noted.
--- NOTE | 2016-05-06 22:18 | NUR ---
PAGER [phone] BEEPED.
--- NOTE | 2016-05-06 22:20 | NUR ---
PAGER [phone] BEEPED PER MOD.
--- NOTE | 2016-05-06 22:44 | NUR ---
SST AND ODEN TOP TUBES SENT TO LAB.
--- NOTE | 2016-05-06 22:47 | NUR ---
PT'S DAUGHTER ALEJANDRO FLORES WOULD LIKE TO BE CONTACTED WITH UPDATES AT [phone]
--- NOTE | 2016-05-06 23:30 | NUR ---
ADMISSION NOTE- Zeyad arrives from ER at 2300 with TELEPHONE DIRECTORY DELIVERER. Transferred to ICU bed and placed on monitors. Patient is oriented to room, staff and call system at this time. She is A&Ox3, forgetful at times, and follows commands. She has generalized weakness and is bedbound at baseline. Patient is NSR on monitor, with BBB, PAC's and PVC's noted. BP is 110/52 manually and rectal temp on admit is 98.7. Patient is found to be incontinent of stool and urine, pericare provided. There is no edema, but there is swelling,redness and hardness to patient's labia. There is also a skin tear noted to the left elbow. Patient has 2 patent peripheral IV's, with NS running at 150ml/hr. No distress noted at this time. Will monitor.
[2016-05-07 06:22] LABS: ABSOLUTE BASOPHIL COUNT 0.1 /CUMM (0.0-0.2); ABSOLUTE EOSINOPHIL COUNT 0.1 /CUMM (0.0-0.7); ABSOLUTE GRANULOCYTE CT 8.4 /CUMM (1.4-6.5); ABSOLUTE LYMPH COUNT 0.6 /CUMM (1.2-3.4); ABSOLUTE MONOCYTE COUNT 0.2 /CUMM (0.10-0.60); BASOPHIL % 0.5 % (0.0-2.0); EOSINOPHIL % 1.1 % (0-5); GRANULOCYTE % 89.7 % (42.2-75.2); HEMATOCRIT 38.4 % (37-47); MEAN CORPUSCULAR HGB 29.5 PG (27.0-31.0); MEAN CORPUSCULAR VOLUME 92.2 FL (81.0-99.0); MEAN PLATELET VOLUME 7.6 FL (7.4-10.4); PLATELET COUNT 392 /CUMM (130-400); RBC DISTRIBUTION WIDTH 15.6 % (11.5-14.5); RED BLOOD CELL CT 4.17 /CUMM (4.20-5.40)
[2016-05-07 07:15] LABS: WHITE BLOOD CELL COUNT 9.4 /CUMM (4.8-10.8)
[2016-05-07 08:00] VITALS: BP 92/60
--- NOTE | 2016-05-07 08:39 | PN- Housestaff ---
Subjective Follow-up For: sepsis of urological origin Subjective: pt seen and examined. no acute complaints except pain in her ankle. hypotensive, cont with fluid resucitation as patient denying any other agressive rx. Review of Systems Constitutional: Reports: see HPI. Objective Last 24 Hrs of Vital Signs/I&O Vital Signs Date Time Temp Pulse Resp B/P Pulse O2 O2 Flow FiO2 Ox Delivery Rate 05/10 1635 98.2 80 24 130/80 05/10 1440 98.2 80 24 130/80 93 Physical Exam General Appearance: Alert, Oriented X3, Cooperative, No Acute Distress Cardiovascular: Regular Rate, Normal S1, Normal S2, No Murmurs Lungs: Clear to Auscultation, Normal Air Movement Abdomen: Normal Bowel Sounds, Soft, No Tenderness Extremities: No Clubbing, No Cyanosis Assessment/Plan Assessment: 81-year-old woman with multiple comorbidities and significant past medical history was admitted for possible sepsis. Pertinent data WBC 17,000 with significant left shift or bandemia hemoglobin of 12.2 hematocrit of 37.2 platelet count 433, SOFA score : 2 possible sepsis with disorders of urinary tract considering persistent right-sided hydronephrosis. Sodium 129, potassium 4.6, AG 9 BUN 20 creatinine 0.8 lactic acid 1.6 AST 42 ALT 35 Treatment in the emergency room: Patient received 3 L and a half normal saline and 1 dose of ceftriaxone 1 dose of metronidazole. List of active problems #1 possible sepsis without evidence of end organ damage. Possible sources are A ) urinary tract, B) gastrointestinal (CT scan was negative for colitis) however colitis is not out of the picture completely. Possible bacteria is from GI ( gram negatives) and C. difficile is to be ruled out. * Patient admit to ICU for close observation * Chopped pure diet * Continue IV hydration normal saline goal to maintain MAP above 65 * Ins and outs; goal to maintain urine output above 0.5 mL per KG per hour * Lactic acid initial 4.8>> 2.1>> 2.6 * Continue IV antibiotics; ceftriaxone 1000 ML per day * Pending urine culture, blood cultures * Normal cortisol lvl * Urology on board, has recommended the patient is now stable for suprapubic catheter placement in OR, Dr. Spencer will attempt to place a Beckman catheter for eyes and O's monitoring as patient has been incontinent. #2 intermittent LBB and wide QRS: Patient was seen by Dr. Antonio for the same finding in 2015. Dynamic EKG changes, could be suggestive of areas of occlusion and reversible ischemia or NSTEMI. * Troponins and EKG, 0.09>> 0.15>> 0.13 * Echocardiogram pending * Monitor on telemetry * Continue aspirin * Lisinopril is held- due to hypotension * Consult cardiology to be placed with #3 isotonic hyponatremia. serum osm of 290msom/l and calculated Serum osm of 272mosm/l. Osm Gap of 18. This finding indiactes either lab error or the prescence of active osmolar agents: paraproteins, Lipids, suger. * follow urine osm and urine lyte * follow lipid profile and TSH DNR/DNI Tylenol for pain Problem List: 1. Hydronephrosis, right 2. DVT prophylaxis 3. Full code status 4. Fever 5. Abdominal pain Pain Ratin Pain Location: none Pain Goal: Remain pain free Pain Plan: mild pp Tomorrow's Labs & Rationales: icu bundle cbc
--- NOTE | 2016-05-07 10:50 | Cons- Urology ---
General Information and HPI Consulting Request Date of Consult: 05/07/16 Requested By: SUPRIYA MCNEIL MD Reason for Consult: urinary catheter requested to obtain urine culture and I/O's Source of Information: patient, family Exam Limitations: physical impairment History of Present Illness: This is an 81-year-old obese bed ridden woman who resides at [facility] home was N/V with abdominal pain. 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 Initially in the emergency room patient was hypotensive around 93 /53, MAP of 66 and HR of 123 and RR 18 98% on 2lit (not her baseline). Patient received 3.5 of bolous NS and remained Hypotensive with the last BP documented in the ED chart as 76 over pulse. Patient is a very poor historian and ROS was very limited. A noncontrast CT scan in ER showed nonobstructing left renal calculi and mild interval decrease in the moderate right hydronephrosis. Persistent moderate right hydroureter. Allergies/Medications Allergies: Coded Allergies: meperidine (From DEMEROL) (DIARRHEA 05/06/16) Home Med List: Acetaminophen (Mapap Arthritis Pain) 650 MG TABLET.ER 1 TAB PO Q4 HRS NEEDED PRN PAIN (Reported) Acetaminophen (Acephen) 650 MG SUPP.RECT 1 SUP [place] Q4 HRS NEEDED PRN PAIN ( Reported) Aspirin (Children's Aspirin) 81 MG TAB.CHEW 1 TAB PO DAILY HEART HEALTH ( Reported) Bisacodyl (Bisac-Evac) 10 MG SUPP.RECT 1 SUPP [place] DAILY NEEDED PRN CONSTIPATION (Reported) Calcium Carbonate/Vitamin D3 (Oyster Shell Calcium +D Tablet) 500 MG-200 TABLET 1 TAB PO DAILY SUPPLEMENT (Reported) Cyanocobalamin (Vitamin B-12) 1,000 MCG TABLET 1 TAB PO DAILY SUPPLEMENT ( Reported) Dicyclomine HCl 20 MG TABLET 1 TAB PO TID PRN GI (Reported) Escitalopram Oxalate 10 MG TABLET 1.5 TAB PO DAILY DEPRESSION (Reported) Lisinopril (Prinivil) 20 MG TABLET 1 TAB PO DAILY HTN (Reported) Loperamide HCl (Loperamide) 2 MG CAPSULE 1 CAP PO Q6 PRN LOOSE STOOLS ( Reported) Magnesium Hydroxide (Milk Of Magnesia) 400 MG/5 ML ORAL.SUSP 30 ML PO DAILY NEEDED PRN CONSTIPATION (Reported) Melatonin 3 MG TABLET 1 TAB PO QPM PRN SLEEP (Reported) Multivitamin (Multiple Vitamins) 1 EACH TABLET 1 TAB PO DAILY SUPPLEMENT ( Reported) Na Phos,M-B/Na Phos,Di-Ba (Fleet Enema Extra) 19 GRAM-7 GRAM/197 ML ENEMA 1 E RC DAILY PRN CONSTIPATION (Reported) Naproxen Sodium (Aleve) 220 MG CAPSULE 1 TAB PO BID PRN PAIN (Reported) Nitrofurantoin Macrocrystal (Nitrofurantoin) 50 MG CAPSULE 1 CAP PO QPM ANTIBIOTIC, INFECTION (Reported) Omeprazole 20 MG CAPSULE.DR 1 CAP PO DAILY GI (Reported) Ondansetron HCl (Zofran) 4 MG TABLET 1 TAB PO Q8P PRN NAUSEA/VOMITING ( Reported) Prochlorperazine (Compazine) 25 MG SUPP.RECT 1 SUP [place] DAILY PRN NAUSEA/ VOMITING (Reported) Simethicone (Gas-X) 125 MG CAPSULE 1 TAB PO Q6-PRN PRN ABDOMINAL PAIN ( Reported) Current Medications: Current Medications Sig/Cecily Start time Last Medication Dose Route Stop Time Status Admin Acetaminophen 325 MG ONCE ONE 05/07 0730 DC 05/07 PO 05/07 0731 0733 Acetaminophen 1,000 MG ONCE ONE 05/06 1515 DC 05/06 N/A 1 UNIT IV 05/06 1529 1519 Acetaminophen 0 .STK-MED ONE 05/06 1514 DC IV Aspirin 81 MG DAILY 05/07 1000 AC 05/07 PO 0901 Aspirin 325 MG ONCE ONE 05/06 2345 DC 05/07 PO 05/06 2346 0010 Aspirin 81 MG ONCE ONE 05/06 2345 DC PO 05/06 2346 Ceftriaxone Sodium 2,000 MG DAILY 05/07 1000 AC 05/07 IV 0900 Ceftriaxone Sodium 0 .STK-MED ONE 05/06 1617 DC .ROUTE Ceftriaxone Sodium 1,000 MG ONCE ONE 05/06 1615 DC 05/06 IV 05/06 1616 1620 Magnesium Sulfate 1 GM Q2H 05/06 2345 DC 05/07 Dextrose/Water 100 ML IV 05/07 0344 0141 Metoclopramide HCl 10 MG ONCE ONE 05/06 1515 DC 05/06 IV 05/06 1516 1519 Metoclopramide HCl 0 .STK-MED ONE 05/06 1514 DC .ROUTE Metronidazole 500 MG ONCE ONE 05/06 1615 DC 05/06 N/A 1 UNIT IV 05/06 1714 1644 Sodium Chloride 1,000 ML ONCE ONE 05/06 2330 DC 05/06 IV 05/07 0609 2330 Sodium Chloride 1,000 ML BOLUS ONE 05/06 2130 DC 05/06 IV 05/06 2329 2246 Sodium Chloride 1,000 ML BOLUS ONE 05/06 1745 DC 05/06 IV 05/06 1844 1841 Sodium Chloride 1,000 ML BOLUS ONE 05/06 1615 DC 05/06 IV 05/06 1714 1612 Sodium Chloride 500 ML BOLUS ONE 05/06 1515 DC 05/06 IV 05/06 1614 1519 Past History Medical History Blood Transfusion Hx: Yes Neurological: NEUROPATHY EENT: cataracts, new right hydronephrosis Cardiovascular: hypertension Respiratory: NONE Gastrointestinal: colitis, Crohn's disease Hepatic: NONE Renal: NONE Musculoskeletal: spinal stenosis, FOOT DROP Psychiatric: depression Endocrine: NONE Blood Disorders: NONE Cancer(s): VAGINAL CA s/p radiation and hysterectomy 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 SISTER (colon cancer). Psychosocial History Where Do You Live? [facility] Who Do You Live With? self Services at Home: Home Health Aide, Nursing Primary Language: Sami Smoking Status: Never Smoked ETOH Use: denies use Illicit Drug Use: denies illicit drug use Living Will? yes Power of Marketing Liaison/HCP? her daughter Functional Ability ADLs Needs Assist: dressing, eating, toileting, bathing. Ambulation: wheelchair-bound IADLs Needs Assist: shopping, housework, finances, food prep, telephone, transportation, medication admin. Review of Systems Review of Systems Constitutional: Reports: weakness. EENTM: Reports: no symptoms. Cardiovascular: Reports: no symptoms. Respiratory: Reports: no symptoms. GI: Reports: abdominal pain. Musculoskeletal: Reports: joint pain. Skin: Reports: no symptoms. Neurological/Psychological: Reports: no symptoms. Hematologic/Endocrine: Reports: no symptoms. Immunologic/Allergic: Reports: no symptoms. Exam & Diagnostic Data Vital Signs and I&O Vital Signs Date Time Temp Pulse Resp B/P Pulse O2 O2 Flow FiO2 Ox Delivery Rate 05/07 0857 99.5 05/07 08 99.5 126 26 92/60 95 Nasal 2.0L Cannula 05/07 08 95 Nasal 2.0L Cannula 05/07 0733 101.4 05/06 2348 99 05/06 2159 98.2 74 18 96/00 98 Nasal 2.0L Cannula 05/06 1841 99.2 80 18 76/00 98 Nasal 2.0L Cannula 05/06 1740 99.6 90 18 84/63 95 Nasal 2.0L Cannula 05/06 1645 99.8 93 18 97/53 98 Nasal 2.0L Cannula 05/06 1619 100.4 83 18 64/40 97 Nasal 2.0L Cannula 05/06 1551 100.4 05/06 1519 101.1 05/06 1504 108 18 101/58 94 Room Air 05/06 1501 94 Room Air 05/06 1450 101.1 123 18 93/53 92 Room Air Intake & Output 05/07 1600 05/07 0805/07 0000 05/06 1600 05/06 0800 05/06 0000 Intake Total 1408 3000 Output Total Balance 1408 3000 Intake, IV 1108 3000 Intake, Oral 300 Patient 40.823 kg 63.531 kg 72.575 kg Weight Physical Exam General Appearance: alert, awake, anxious, obese Head: atraumatic, normal appearance Eyes: Bilateral: normal appearance. Ears, Nose, Throat: normal ENT inspection Neck: normal inspection Respiratory: normal breath sounds Gastrointestinal: soft, non-tender Rectal: deferred Neurologic/Psych: awake, alert Cranial Nerves: normal hearing, normal speech Skin: intact, normal color, warm/dry Reproductive: very distorted vaginal anatomy. cement like firmness with no vaginal opening or urethral opening. unable to pass urethral catheter even with two nurses holding up her legs for maximal positioning. Last 24 Hours of Labs: Laboratory Tests 05/07 05/06 05/06 0445 2240 1853 Chemistry Sodium (137 - 145 mmol/L) 134 L 131 L Potassium (3.5 - 5.1 mmol/L) 4.4 4.2 Chloride (98 - 107 mmol/L) 105 103 Carbon Dioxide (22 - 30 mmol/L) 20 L 21 L Anion Gap (5 - 16) 9 7 BUN (7 - 17 mg/dL) 16 17 Creatinine (0.5 - 1.0 mg/dL) 0.8 0.7 Estimated GFR (>60 ml/min) > 60 > 60 Glucose (65 - 99 mg/dL) 89 95 Lactic Acid (0.7 - 2.1 mmol/L) 1.1 Calcium (8.4 - 10.2 mg/dL) 8.5 8.1 L Phosphorus (2.5 - 4.5 mg/dL) 2.9 3.1 Magnesium (1.6 - 2.3 mg/dL) 2.9 H 1.7 Total Bilirubin (0.2 - 1.3 mg/dL) 0.5 0.6 AST (14 - 36 U/L) 35 32 ALT (9 - 52 U/L) 38 38 Troponin I (< 0.11 ng/ml) 0.13 *H 0.15 *H Albumin (3.5 - 5.0 g/dL) 2.6 L 2.3 L Triglycerides (<150 mg/dL) 65 Cholesterol (<200 MG/DL) 69 LDL Cholesterol, Calc (65 - 129 mg/dL) 25 L HDL Cholesterol (40 - 60 mg/dL) 31 L Cholesterol/HDL Ratio (0.00 - 4.23 %) 2 TSH (0.270 - 4.200 uIU/mL) 1.790 Cortisol PM Sample (1.7 - 14.1) 10.3 Hematology CBC w Diff NO MAN DIFF REQ WBC (4.8 - 10.8 /CUMM) 9.4 RBC (4.20 - 5.40 /CUMM) 4.17 L Hgb (12.0 - 16.0 G/DL) 12.3 Hct (37 - 47 %) 38.4 MCV (81.0 - 99.0 FL) 92.2 MCH (27.0 - 31.0 PG) 29.5 RDW (11.5 - 14.5 %) 15.6 H Plt Count (130 - 400 /CUMM) 392 MPV (7.4 - 10.4 FL) 7.6 Gran % (42.2 - 75.2 %) 89.7 H Lymphocytes % (20.5 - 51.1 %) 6.6 L Monocytes % (1.7 - 9.3 %) 2.1 Eosinophils % (0 - 5 %) 1.1 Basophils % (0.0 - 2.0 %) 0.5 Absolute Granulocytes (1.4 - 6.5 /CUMM) 8.4 H Absolute Lymphocytes (1.2 - 3.4 /CUMM) 0.6 L Absolute Monocytes (0.10 - 0.60 /CUMM) 0.2 Absolute Eosinophils (0.0 - 0.7 /CUMM) 0.1 Absolute Basophils (0.0 - 0.2 /CUMM) 0.1 PUBS MCHC (33.0 - 37.0 G/DL) 32.0 L 05/06 1516 Chemistry Sodium (137 - 145 mmol/L) 129 L Potassium (3.5 - 5.1 mmol/L) 4.6 Chloride (98 - 107 mmol/L) 96 L Carbon Dioxide (22 - 30 mmol/L) 24 Anion Gap (5 - 16) 9 BUN (7 - 17 mg/dL) 20 H Creatinine (0.5 - 1.0 mg/dL) 0.8 Estimated GFR (>60 ml/min) > 60 BUN/Creatinine Ratio (7 - 25 %) 25.0 Glucose (65 - 99 mg/dL) 124 H Serum Osmolality (285 - 295 MOSM/KG) 290 Lactic Acid (0.7 - 2.1 mmol/L) 1.6 Calcium (8.4 - 10.2 mg/dL) 9.1 Total Bilirubin (0.2 - 1.3 mg/dL) 0.9 AST (14 - 36 U/L) 42 H ALT (9 - 52 U/L) 33 Alkaline Phosphatase (<127 U/L) 116 Troponin I (< 0.11 ng/ml) 0.09 Total Protein (6.3 - 8.2 g/dL) 6.0 L Albumin (3.5 - 5.0 g/dL) 2.7 L Globulin (1.9 - 4.2 gm/dL) 3.3 Albumin/Globulin Ratio (1.1 - 2.2 %) 0.8 L Lipase (23 - 300 U/L) 25 Coagulation PT (9.4 - 12.5 SEC) 13.6 H INR (0.90 - 1.19) 1.30 H APTT (25 - 37 SEC) 29 Hematology CBC w Diff MAN DIFF ORDERED WBC (4.8 - 10.8 /CUMM) 17.0 H RBC (4.20 - 5.40 /CUMM) 4.11 L Hgb (12.0 - 16.0 G/DL) 12.2 Hct (37 - 47 %) 37.6 MCV (81.0 - 99.0 FL) 91.5 MCH (27.0 - 31.0 PG) 29.7 RDW (11.5 - 14.5 %) 15.1 H Plt Count (130 - 400 /CUMM) 433 H MPV (7.4 - 10.4 FL) 7.4 Gran % (42.2 - 75.2 %) 91.4 H Lymphocytes % (20.5 - 51.1 %) 3.6 L Monocytes % (1.7 - 9.3 %) 4.3 Eosinophils % (0 - 5 %) 0.5 Basophils % (0.0 - 2.0 %) 0.2 Absolute Granulocytes (1.4 - 6.5 /CUMM) 15.5 H Segmented Neutrophils (42.2 - 75.2 %) 88 H Band Neutrophils (0.0 - 5.0 %) 4 Absolute Lymphocytes (1.2 - 3.4 /CUMM) 0.6 L Lymphocytes (20.5 - 51.1 %) 4 L Monocytes (1.7 - 9.3 %) 3 Absolute Monocytes (0.10 - 0.60 /CUMM) 0.7 H Absolute Eosinophils (0.0 - 0.7 /CUMM) 0.1 Basophils (0.0 - 2.0 %) 1 Absolute Basophils (0.0 - 0.2 /CUMM) 0 Platelet Estimate (ADEQUATE) ADEQUATE Normocytic RBCs VERIFIED Normochromic RBCs VERIFIED Polychromasia PUBS MCHC (33.0 - 37.0 G/DL) 32.4 L Imaging Results: as stated above re: CT Assessment/Plan Assessment/Plan 81yo female with mult PMH admitted with N/V and unstable VS. Unclear what the etiology is. Attempted moses catheter placement but unable due to severely distorted vaginal anatomy secondary to radiation therapy for vaginal cancer. She would need SPT placement in the OR if this was an option given her previous abd surgery hx. Spoke to her daughter from [place] and she understands the above. Gave her the r/b/a of placing SPT vs observation. If family changes their mind or patient stabilizes and wants a SPT placed, please reconsult Urology. No need for intervention on kidney stones at this time. Cr stable. No complaints of flank discomfort. Consult Acknowledgment - Thank you for your consult request.
--- NOTE | 2016-05-07 11:55 | NUR ---
@0800-PT DROWSY/AROUS. ORIENTED X PERSON AND PLACE. FORGETFUL ON TIME. BEDBOUND BASELINE. FEBRILE AT 0700 101.4-MEDICATED WITH TYELENOL PER NIGHT TEAM. PT CURRENTLY 99.5, PT SATURATED DUE TO FEVER BREAKING. CONT ON 2LNC. O2SAT 95%,LUNGS CLEAR, DIM TO BASES. NSR ST HR 120S. BP 90S MANUALLY. HH PUREED DIET AT BEDSIDE, ATTEMPTED TO FEED BREAKFAST, CONSUMED 1/4 OF OATMEAL. NO GI DISTRESS NOTED AT THIS TIME. INC OF LARGE AMTS OF URINE. UROLOGY TO COME TO BEDSIDE TO ATTEMPY PLACEMENT OF CATHETER. SKIN INTACT EXCEPT FOR HEALING SKIN TEAR TO ELBOW. TRACE BLE EDEMA. IVF CONT TO INFUSE AT 150ML/HR. LABS WNL. CONT TO MONITOR, CALL TOÑITO EAGLE.
--- NOTE | 2016-05-07 12:03 | NUR ---
@1030-UROLOGIST AT BEDSIDE WITH ATTEMPTS TO PLACE GLEZ CATH. THIS RN AND NARROW GAUGE BRAKEMAN ALSO AT BEDSIDE ASSISTING WITH PLACEMENT. WHILE ATTMEPTING TO PLACE LEGS IN ADEQUATE POSITION, RN HEARD A CRACK TO L ANKLE, L FOOT NOTED TO BE IN ABNORMAL POSITION. PT STATES SHE DOES HAVE PAIN TO SITE WHEN PALPATED. [employer]PER[employer] CALLED TO BEDSIDE TO ASSESS AND XRAY TO L ANKLE ORD. DAUGHTER UPDATED. GLEZ WAS UNABLE TO BE PLACED AT THIS TIME. CONT TO MONITOR CLOSELY.
--- NOTE | 2016-05-07 12:21 | Cons- Cardiology ---
General Information and HPI Consulting Request Date of Consult: 05/07/16 Requested By: SUPRIYA MCNEIL MD Reason for Consult: Elevated troponin in a patient who presents with sepsis. Source of Information: patient, old records Exam Limitations: dementia History of Present Illness: The patient is an 81-year-old female group home resident who presents with probable sepsis. She was previously evaluated 2 years ago for intermittent left bundle branch block. She had an echocardiogram which showed LVH and good left ventricular function and no significant valvular disease. The patient has significant dementia and is unable to give me any history. She is DNR/DNI. She was noted to have troponin on admission of 0.09 which subsequently jesus to 0.15 and then fell to 0.13 this morning. There have been no arrhythmias noted on the monitor. Her EKG shows sinus rhythm with left bundle branch block and low voltage. The patient is not complaining of chest pain or shortness of breath at this time but is difficult to get any history from her. There is no definite history of other heart disease documented, just hypertension. Her home medications include only lisinopril from a cardiac standpoint. Allergies/Medications Allergies: Coded Allergies: meperidine (From DEMEROL) (DIARRHEA 05/06/16) Home Med List: Acetaminophen (Mapap Arthritis Pain) 650 MG TABLET.ER 1 TAB PO Q4 HRS NEEDED PRN PAIN (Reported) Acetaminophen (Acephen) 650 MG SUPP.RECT 1 SUP CO Q4 HRS NEEDED PRN PAIN ( Reported) Aspirin (Children's Aspirin) 81 MG TAB.CHEW 1 TAB PO DAILY HEART HEALTH ( Reported) Bisacodyl (Bisac-Evac) 10 MG SUPP.RECT 1 SUPP CO DAILY NEEDED PRN CONSTIPATION (Reported) Calcium Carbonate/Vitamin D3 (Oyster Shell Calcium +D Tablet) 500 MG-200 TABLET 1 TAB PO DAILY SUPPLEMENT (Reported) Cyanocobalamin (Vitamin B-12) 1,000 MCG TABLET 1 TAB PO DAILY SUPPLEMENT ( Reported) Dicyclomine HCl 20 MG TABLET 1 TAB PO TID PRN GI (Reported) Escitalopram Oxalate 10 MG TABLET 1.5 TAB PO DAILY DEPRESSION (Reported) Lisinopril (Prinivil) 20 MG TABLET 1 TAB PO DAILY HTN (Reported) Loperamide HCl (Loperamide) 2 MG CAPSULE 1 CAP PO Q6 PRN LOOSE STOOLS ( Reported) Magnesium Hydroxide (Milk Of Magnesia) 400 MG/5 ML ORAL.SUSP 30 ML PO DAILY NEEDED PRN CONSTIPATION (Reported) Melatonin 3 MG TABLET 1 TAB PO QPM PRN SLEEP (Reported) Multivitamin (Multiple Vitamins) 1 EACH TABLET 1 TAB PO DAILY SUPPLEMENT ( Reported) Na Phos,M-B/Na Phos,Di-Ba (Fleet Enema Extra) 19 GRAM-7 GRAM/197 ML ENEMA 1 E RC DAILY PRN CONSTIPATION (Reported) Naproxen Sodium (Aleve) 220 MG CAPSULE 1 TAB PO BID PRN PAIN (Reported) Nitrofurantoin Macrocrystal (Nitrofurantoin) 50 MG CAPSULE 1 CAP PO QPM ANTIBIOTIC, INFECTION (Reported) Omeprazole 20 MG CAPSULE.DR 1 CAP PO DAILY GI (Reported) Ondansetron HCl (Zofran) 4 MG TABLET 1 TAB PO Q8P PRN NAUSEA/VOMITING ( Reported) Prochlorperazine (Compazine) 25 MG SUPP.RECT 1 SUP CO DAILY PRN NAUSEA/ VOMITING (Reported) Simethicone (Gas-X) 125 MG CAPSULE 1 TAB PO Q6-PRN PRN ABDOMINAL PAIN ( Reported) Current Medications: Current Medications Sig/Cecily Start time Last Medication Dose Route Stop Time Status Admin Acetaminophen 325 MG ONCE ONE 05/07 0730 DC 05/07 PO 05/07 0731 0733 Acetaminophen 1,000 MG ONCE ONE 05/06 1515 DC 05/06 N/A 1 UNIT IV 05/06 1529 1519 Acetaminophen 0 .STK-MED ONE 05/06 1514 DC IV Aspirin 81 MG DAILY 05/07 1000 AC 05/07 PO 0901 Aspirin 325 MG ONCE ONE 05/06 2345 DC 05/07 PO 05/06 2346 0010 Aspirin 81 MG ONCE ONE 05/06 2345 DC PO 05/06 2346 Ceftriaxone Sodium 2,000 MG DAILY 05/07 1000 AC 05/07 IV 0900 Ceftriaxone Sodium 0 .STK-MED ONE 05/06 1617 DC .ROUTE Ceftriaxone Sodium 1,000 MG ONCE ONE 05/06 1615 DC 05/06 IV 05/06 1616 1620 Insulin Aspart 0 TIDAC/HS 05/07 1200 CAN SC Magnesium Sulfate 1 GM Q2H 05/06 2345 DC 05/07 Dextrose/Water 100 ML IV 05/07 0344 0141 Metoclopramide HCl 10 MG ONCE ONE 05/06 1515 DC 05/06 IV 05/06 1516 1519 Metoclopramide HCl 0 .STK-MED ONE 05/06 1514 DC .ROUTE Metronidazole 500 MG ONCE ONE 05/06 1615 DC 05/06 N/A 1 UNIT IV 05/06 1714 1644 Sodium Chloride 500 ML BOLUS ONE 05/07 1215 AC 05/07 IV 05/07 1314 1215 Sodium Chloride 1,000 ML ONCE ONE 05/06 2330 DC 05/06 IV 05/07 0609 2330 Sodium Chloride 1,000 ML BOLUS ONE 05/06 2130 DC 05/06 IV 05/06 2329 2246 Sodium Chloride 1,000 ML BOLUS ONE 05/06 1745 DC 05/06 IV 05/06 1844 1841 Sodium Chloride 1,000 ML BOLUS ONE 05/06 1615 DC 05/06 IV 05/06 1714 1612 Sodium Chloride 500 ML BOLUS ONE 05/06 1515 DC 05/06 IV 05/06 1614 1519 Review of Systems Review of Systems: Unobtainable Past History Travel History Traveled to [place] past 21 day No Medical History Blood Transfusion Hx: Yes Neurological: NEUROPATHY EENT: cataracts, new right hydronephrosis Cardiovascular: hypertension Respiratory: NONE Gastrointestinal: colitis, Crohn's disease Hepatic: NONE Renal: NONE Musculoskeletal: spinal stenosis, FOOT DROP Psychiatric: depression Endocrine: NONE Blood Disorders: NONE 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 SISTER (colon cancer). Psychosocial History Where Do You Live? [facility] Facility Who Do You Live With? self Services at Home: Home Health Aide, Nursing Primary Language: Kazakh Smoking Status: Never Smoked ETOH Use: denies use Illicit Drug Use: denies illicit drug use Living Will? yes Power of Manager Global/HCP? her daughter Functional Ability ADLs Needs Assist: dressing, eating, toileting, bathing. Ambulation: wheelchair-bound IADLs Needs Assist: shopping, housework, finances, food prep, telephone, transportation, medication admin. Exam & Diagnostic Data Vital Signs and I&O Vital Signs Date Time Temp Pulse Resp B/P Pulse O2 O2 Flow FiO2 Ox Delivery Rate 05/07 0857 99.5 05/07 08 99.5 126 26 92/60 95 Nasal 2.0L Cannula 05/07 08 95 Nasal 2.0L Cannula 05/07 0733 101.4 05/06 2348 99 05/06 2159 98.2 74 18 96/00 98 Nasal 2.0L Cannula 05/06 1841 99.2 80 18 76/00 98 Nasal 2.0L Cannula 05/06 1740 99.6 90 18 84/63 95 Nasal 2.0L Cannula 05/06 1645 99.8 93 18 97/53 98 Nasal 2.0L Cannula 05/06 1619 100.4 83 18 64/40 97 Nasal 2.0L Cannula 05/06 1551 100.4 05/06 1519 101.1 05/06 1504 108 18 101/58 94 Room Air 05/06 1501 94 Room Air 05/06 1450 101.1 123 18 93/53 92 Room Air Intake & Output 05/07 1600 05/07 0800 05/07 0000 05/06 1600 05/06 0800 05/06 0000 Intake Total 1408 3000 Output Total Balance 1408 3000 Intake, IV 1108 3000 Intake, Oral 300 Patient 90 lb 140 lb 160 lb Weight Physical Exam: On physical she is obtunded but slightly arousable. HEENT exam is grossly normal Chest reveals no abnormalities to limited exam Heart reveals regular rhythm and no murmurs Extremities reveal no edema Labs/Colby Results: Laboratory Tests 05/07 05/06 05/06 0445 2240 1853 Chemistry Sodium (137 - 145 mmol/L) 134 L 131 L Potassium (3.5 - 5.1 mmol/L) 4.4 4.2 Chloride (98 - 107 mmol/L) 105 103 Carbon Dioxide (22 - 30 mmol/L) 20 L 21 L Anion Gap (5 - 16) 9 7 BUN (7 - 17 mg/dL) 16 17 Creatinine (0.5 - 1.0 mg/dL) 0.8 0.7 Estimated GFR (>60 ml/min) > 60 > 60 Glucose (65 - 99 mg/dL) 89 95 Lactic Acid (0.7 - 2.1 mmol/L) 1.1 Calcium (8.4 - 10.2 mg/dL) 8.5 8.1 L Phosphorus (2.5 - 4.5 mg/dL) 2.9 3.1 Magnesium (1.6 - 2.3 mg/dL) 2.9 H 1.7 Total Bilirubin (0.2 - 1.3 mg/dL) 0.5 0.6 AST (14 - 36 U/L) 35 32 ALT (9 - 52 U/L) 38 38 Troponin I (< 0.11 ng/ml) 0.13 *H 0.15 *H Albumin (3.5 - 5.0 g/dL) 2.6 L 2.3 L Triglycerides (<150 mg/dL) 65 Cholesterol (<200 MG/DL) 69 LDL Cholesterol, Calc (65 - 129 mg/dL) 25 L HDL Cholesterol (40 - 60 mg/dL) 31 L Cholesterol/HDL Ratio (0.00 - 4.23 %) 2 TSH (0.270 - 4.200 uIU/mL) 1.790 Cortisol PM Sample (1.7 - 14.1) 10.3 Hematology CBC w Diff NO MAN DIFF REQ WBC (4.8 - 10.8 /CUMM) 9.4 RBC (4.20 - 5.40 /CUMM) 4.17 L Hgb (12.0 - 16.0 G/DL) 12.3 Hct (37 - 47 %) 38.4 MCV (81.0 - 99.0 FL) 92.2 MCH (27.0 - 31.0 PG) 29.5 RDW (11.5 - 14.5 %) 15.6 H Plt Count (130 - 400 /CUMM) 392 MPV (7.4 - 10.4 FL) 7.6 Gran % (42.2 - 75.2 %) 89.7 H Lymphocytes % (20.5 - 51.1 %) 6.6 L Monocytes % (1.7 - 9.3 %) 2.1 Eosinophils % (0 - 5 %) 1.1 Basophils % (0.0 - 2.0 %) 0.5 Absolute Granulocytes (1.4 - 6.5 /CUMM) 8.4 H Absolute Lymphocytes (1.2 - 3.4 /CUMM) 0.6 L Absolute Monocytes (0.10 - 0.60 /CUMM) 0.2 Absolute Eosinophils (0.0 - 0.7 /CUMM) 0.1 Absolute Basophils (0.0 - 0.2 /CUMM) 0.1 PUBS MCHC (33.0 - 37.0 G/DL) 32.0 L 05/06 1516 Chemistry Sodium (137 - 145 mmol/L) 129 L Potassium (3.5 - 5.1 mmol/L) 4.6 Chloride (98 - 107 mmol/L) 96 L Carbon Dioxide (22 - 30 mmol/L) 24 Anion Gap (5 - 16) 9 BUN (7 - 17 mg/dL) 20 H Creatinine (0.5 - 1.0 mg/dL) 0.8 Estimated GFR (>60 ml/min) > 60 BUN/Creatinine Ratio (7 - 25 %) 25.0 Glucose (65 - 99 mg/dL) 124 H Serum Osmolality (285 - 295 MOSM/KG) 290 Lactic Acid (0.7 - 2.1 mmol/L) 1.6 Calcium (8.4 - 10.2 mg/dL) 9.1 Total Bilirubin (0.2 - 1.3 mg/dL) 0.9 AST (14 - 36 U/L) 42 H ALT (9 - 52 U/L) 33 Alkaline Phosphatase (<127 U/L) 116 Troponin I (< 0.11 ng/ml) 0.09 Total Protein (6.3 - 8.2 g/dL) 6.0 L Albumin (3.5 - 5.0 g/dL) 2.7 L Globulin (1.9 - 4.2 gm/dL) 3.3 Albumin/Globulin Ratio (1.1 - 2.2 %) 0.8 L Lipase (23 - 300 U/L) 25 Coagulation PT (9.4 - 12.5 SEC) 13.6 H INR (0.90 - 1.19) 1.30 H APTT (25 - 37 SEC) 29 Hematology CBC w Diff MAN DIFF ORDERED WBC (4.8 - 10.8 /CUMM) 17.0 H RBC (4.20 - 5.40 /CUMM) 4.11 L Hgb (12.0 - 16.0 G/DL) 12.2 Hct (37 - 47 %) 37.6 MCV (81.0 - 99.0 FL) 91.5 MCH (27.0 - 31.0 PG) 29.7 RDW (11.5 - 14.5 %) 15.1 H Plt Count (130 - 400 /CUMM) 433 H MPV (7.4 - 10.4 FL) 7.4 Gran % (42.2 - 75.2 %) 91.4 H Lymphocytes % (20.5 - 51.1 %) 3.6 L Monocytes % (1.7 - 9.3 %) 4.3 Eosinophils % (0 - 5 %) 0.5 Basophils % (0.0 - 2.0 %) 0.2 Absolute Granulocytes (1.4 - 6.5 /CUMM) 15.5 H Segmented Neutrophils (42.2 - 75.2 %) 88 H Band Neutrophils (0.0 - 5.0 %) 4 Absolute Lymphocytes (1.2 - 3.4 /CUMM) 0.6 L Lymphocytes (20.5 - 51.1 %) 4 L Monocytes (1.7 - 9.3 %) 3 Absolute Monocytes (0.10 - 0.60 /CUMM) 0.7 H Absolute Eosinophils (0.0 - 0.7 /CUMM) 0.1 Basophils (0.0 - 2.0 %) 1 Absolute Basophils (0.0 - 0.2 /CUMM) 0 Platelet Estimate (ADEQUATE) ADEQUATE Normocytic RBCs VERIFIED Normochromic RBCs VERIFIED Polychromasia PUBS MCHC (33.0 - 37.0 G/DL) 32.4 L Diagnostic Data EKG Results EKG shows sinus rhythm at a rate of 95. There is a single PAC. There is left bundle branch block pattern. There is generalized low voltage. CXR Results IMPRESSION: No evidence for acute disease. DICTATED BY: MANASA TORRES MD DATE/TIME DICTATED:05/06/161810 FILTER OPERATOR:JIHAN DATE/TIME TRANSCRIBED:05/06/161810 Assessment/Plan Assessment/Plan This patient presents with gram-negative sepsis. This is likely in origin. She has a slight troponin rise to 0.15. She has underlying left bundle branch block. She has previous echo showing normal left ventricular systolic function. I think the troponin rise is due to demand ischemia from sepsis and hypotension. There is no evidence of major cardiac dysfunction or congestive heart failure. I would just monitor her while she is here in the ICU. An echocardiogram will be helpful but probably will not change her course. Otherwise she will just be treated for her sepsis. Of note is she is DNR/DNI. Consult Acknowledgment - Thank you for your consult request.
--- NOTE | 2016-05-07 12:24 | RADIOLOGY REPORT ---
EXAMINATION: XR ANKLE, LEFT CLINICAL INFORMATION: 81-year-old woman with ankle pain. COMPARISON: None TECHNIQUE: AP, lateral, and mortise views of the left ankle. FINDINGS: There is severe osteopenia which limits assessment. There appears to be a fracture of the distal tibial metaphysis without definite intra-articular extension. There is also a minimally displaced fracture of the distal fibula metadiaphysis. Overall alignment is approximately anatomic. IMPRESSION: Limited by severe osteopenia. There appear to be minimally displaced distal tibial and fibular fractures.
--- NOTE | 2016-05-07 13:00 | NUR ---
@1200-MANUAL BP 60/40-REPORTED TO HOUSESTAFF. NS 500ML BOLUS INFUSING AT THIS TIME. CONT TO MONITOR, CALL TOÑITO EAGLE. DAUGHTER AT BEDSIDE
--- NOTE | 2016-05-07 15:42 | Cons- Orthopedic ---
General Information and HPI Consulting Request Date of Consult: 05/07/16 Requested By: SUPRIYA MCNEIL MD Reason for Consult: Left bimalleolar fracture closed History of Present Illness: Patient is an 81-year-old female admitted with sepsis and was being placed in a position for obtaining a urine culture and sustained a left closed bimalleolar fracture this woman is severely osteoporotic. X-rays were ordered by the medical staff does show a minimally displaced bimalleolar fracture on the left side which is closed. On the x-ray and the bone is severely osteoporotic. The patient is in the ICU with significant medical medical issues. Allergies/Medications Allergies: Coded Allergies: meperidine (From DEMEROL) (DIARRHEA 05/06/16) Home Med List: Acetaminophen (Mapap Arthritis Pain) 650 MG TABLET.ER 1 TAB PO Q4 HRS NEEDED PRN PAIN (Reported) Acetaminophen (Acephen) 650 MG SUPP.RECT 1 SUP GA Q4 HRS NEEDED PRN PAIN ( Reported) Aspirin (Children's Aspirin) 81 MG TAB.CHEW 1 TAB PO DAILY HEART HEALTH ( Reported) Bisacodyl (Bisac-Evac) 10 MG SUPP.RECT 1 SUPP GA DAILY NEEDED PRN CONSTIPATION (Reported) Calcium Carbonate/Vitamin D3 (Oyster Shell Calcium +D Tablet) 500 MG-200 TABLET 1 TAB PO DAILY SUPPLEMENT (Reported) Cyanocobalamin (Vitamin B-12) 1,000 MCG TABLET 1 TAB PO DAILY SUPPLEMENT ( Reported) Dicyclomine HCl 20 MG TABLET 1 TAB PO TID PRN GI (Reported) Escitalopram Oxalate 10 MG TABLET 1.5 TAB PO DAILY DEPRESSION (Reported) Lisinopril (Prinivil) 20 MG TABLET 1 TAB PO DAILY HTN (Reported) Loperamide HCl (Loperamide) 2 MG CAPSULE 1 CAP PO Q6 PRN LOOSE STOOLS ( Reported) Magnesium Hydroxide (Milk Of Magnesia) 400 MG/5 ML ORAL.SUSP 30 ML PO DAILY NEEDED PRN CONSTIPATION (Reported) Melatonin 3 MG TABLET 1 TAB PO QPM PRN SLEEP (Reported) Multivitamin (Multiple Vitamins) 1 EACH TABLET 1 TAB PO DAILY SUPPLEMENT ( Reported) Na Phos,M-B/Na Phos,Di-Ba (Fleet Enema Extra) 19 GRAM-7 GRAM/197 ML ENEMA 1 E RC DAILY PRN CONSTIPATION (Reported) Naproxen Sodium (Aleve) 220 MG CAPSULE 1 TAB PO BID PRN PAIN (Reported) Nitrofurantoin Macrocrystal (Nitrofurantoin) 50 MG CAPSULE 1 CAP PO QPM ANTIBIOTIC, INFECTION (Reported) Omeprazole 20 MG CAPSULE.DR 1 CAP PO DAILY GI (Reported) Ondansetron HCl (Zofran) 4 MG TABLET 1 TAB PO Q8P PRN NAUSEA/VOMITING ( Reported) Prochlorperazine (Compazine) 25 MG SUPP.RECT 1 SUP GA DAILY PRN NAUSEA/ VOMITING (Reported) Simethicone (Gas-X) 125 MG CAPSULE 1 TAB PO Q6-PRN PRN ABDOMINAL PAIN ( Reported) Past History Medical History Blood Transfusion Hx: Yes Neurological: NEUROPATHY EENT: cataracts, new right hydronephrosis Cardiovascular: hypertension Respiratory: NONE Gastrointestinal: colitis, Crohn's disease Hepatic: NONE Renal: NONE Musculoskeletal: spinal stenosis, FOOT DROP Psychiatric: depression Endocrine: NONE Blood Disorders: NONE 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 SISTER (colon cancer). Psychosocial History Where Do You Live? [facility] Who Do You Live With? self Services at Home: Home Health Aide, Nursing Primary Language: Bengali Smoking Status: Never Smoked ETOH Use: denies use Illicit Drug Use: denies illicit drug use Living Will? yes Power of Statistician Theoretical/HCP? her daughter Functional Ability ADLs Needs Assist: dressing, eating, toileting, bathing. Ambulation: wheelchair-bound IADLs Needs Assist: shopping, housework, finances, food prep, telephone, transportation, medication admin. Exam & Diagnostic Data Vital Signs and I&O Vital Signs Date Time Temp Pulse Resp B/P Pulse O2 O2 Flow FiO2 Ox Delivery Rate 05/07 1200 95 Nasal 2.0L Cannula 05/07 0857 99.5 05/07 0800 99.5 126 26 92/60 95 Nasal 2.0L Cannula 05/07 0800 95 Nasal 2.0L Cannula 05/07 0733 101.4 05/06 2348 99 05/06 2159 98.2 74 18 96/00 98 Nasal 2.0L Cannula 05/06 1841 99.2 80 18 76/00 98 Nasal 2.0L Cannula 05/06 1740 99.6 90 18 84/63 95 Nasal 2.0L Cannula 05/06 1645 99.8 93 18 97/53 98 Nasal 2.0L Cannula 05/06 1619 100.4 83 18 64/40 97 Nasal 2.0L Cannula 05/06 1551 100.4 Intake & Output 05/07 1600 05/07 0800 05/07 0000 05/06 1600 05/06 0800 05/06 0000 Intake Total 1760 1408 3000 Output Total Balance 1760 1408 3000 Intake, IV 1580 1108 3000 Intake, Oral 180 300 Number 1 Bowel Movements Patient 90 lb 140 lb 160 lb Weight Physical Exam General Appearance: alert, awake Extremities: pedal edema (skin normal closed left bimall) Neurologic/Psych: no motor/sensory deficits, alert Assessment/Plan Assessment/Plan Patient 81-year-old female severely osteoporotic with a closed left bimalleolar ankle fracture on x-ray this fracture can be handled conservatively with a splint and and we'll convert this over to a cast in the next 5-7 days. She must remain nonweightbearing on this left lower extremity for 6 weeks. Consult Acknowledgment - Thank you for your consult request. Attending MD Review Statement Attending Statement Attending MD Statement: examined this patient
--- NOTE | 2016-05-07 15:45 | NUR ---
@1500-DR CARNES AT BEDSIDE AND PLACED SPLINT TO L ANKLE FRACTURE. PT [facility] WELL. MEDICATED WITH IV TYELENOL. ASSISTED TO COMFORTABLE POSITION. HOUSESTAFF WITH FAMILY DISCUSSING GOALS OF CARE. CONT TO MONITOR CLOSELY. CALL TOÑITO EAGLE.
[2016-05-07 16:00] VITALS: BP 68/32
--- NOTE | 2016-05-07 16:00 | Event Note ---
Event Note Event Note: Brief : goals of care discussion. Assesment : We had golas of care discussion with all four sisters. Ms Manzano doesnt want any aggressive mesures. She denies any central line for low BP, no agrresive imgaging , she is a DNR/DNI. Plan :Will ct current mx. At any point if her condition worsens, can reach back to family for further goals of care and persuing comfort measures.
--- NOTE | 2016-05-07 17:23 | PN- Att Addend ---
Attending Addendum Attending Brief Note Covering attending note: Patient was admitted last evening with abdominal pain hypotensive and septic was admitted to the intensive care unit had IV fluids. Low 90/60, her temp max was 101.4 pulse is 120 her white count is 9400. The lab called that she is growing gram-negative rads in 2 blood cultures. Patient was seen by urology unable to put a Beckman catheter in due to distortion of her pelvic area from previous treatments patient not stable enough to put a suprapubic catheter in. Also family would not like any heroics or any procedures done at this time and if the patient deteriorates with consider hospice comfort care. Appreciate was seen by cardiology due to the intermittent bundle branch block and the transient troponin bump was thought to be demand ischemia was also seen by orthopedics for her ankle fracture, conservative treatment for that condition is poor at this time the prognosis is poor too. Current Medications Sig/Cecily Start time Last Medication Dose Route Stop Time Status Admin Acetaminophen 1,000 MG ONCE ONE 05/07 1400 DC 05/07 IV 05/07 1401 1410 Acetaminophen 325 MG ONCE ONE 05/07 0730 DC 05/07 PO 05/07 0731 0733 Aspirin 81 MG DAILY 05/07 1000 AC 05/07 PO 0901 Aspirin 325 MG ONCE ONE 05/06 2345 DC 05/07 PO 05/06 2346 0010 Aspirin 81 MG ONCE ONE 05/06 2345 DC PO 05/06 2346 Ceftriaxone Sodium 2,000 MG DAILY 05/07 1000 AC 05/07 IV 0900 Insulin Aspart 0 TIDAC/HS 05/07 1200 CAN SC Ketorolac 30 MG ONCE ONE 05/07 1645 DC 05/07 Tromethamine IV 05/07 1646 1639 Magnesium Sulfate 1 GM Q2H 05/06 2345 DC 05/07 Dextrose/Water 100 ML IV 05/07 0344 0141 Methyl Salicylate 1 ADAMARIS Q4 HRS NEEDED PRN 05/07 1415 AC TOP Sodium Chloride 1,000 ML ONCE ONE 05/07 1600 AC IV 05/07 2239 Sodium Chloride 1,000 ML Q6H 05/07 1600 AC 05/07 IV 1631 Sodium Chloride 500 ML BOLUS ONE 05/07 1215 DC 05/07 IV 05/07 1314 1215 Sodium Chloride 1,000 ML ONCE ONE 05/06 2330 DC 05/06 IV 05/07 0609 2330 Sodium Chloride 1,000 ML BOLUS ONE 05/06 2130 DC 05/06 IV 05/06 2329 2246 Sodium Chloride 1,000 ML BOLUS ONE 05/06 1745 DC 05/06 IV 05/06 1844 1841 Laboratory Tests 05/07/16 0445: Anion Gap 9, Estimated GFR > 60, Glucose 89, Calcium 8.5, Phosphorus 2.9, Magnesium 2.9 H, Total Bilirubin 0.5, AST 35, ALT 38, Troponin I 0.13 *H, Albumin 2.6 L, CBC w Diff NO MAN DIFF REQ, RBC 4.17 L, MCV 92.2, MCH 29.5, RDW 15.6 H, MPV 7.6, Gran % 89.7 H, Lymphocytes % 6.6 L, Monocytes % 2.1, Eosinophils % 1.1, Basophils % 0.5, Absolute Granulocytes 8.4 H, Absolute Lymphocytes 0.6 L, Absolute Monocytes 0.2, Absolute Eosinophils 0.1, Absolute Basophils 0.1, PUBS MCHC 32.0 L 05/06/160: Anion Gap 7, Estimated GFR > 60, Glucose 95, Calcium 8.1 L, Phosphorus 3.1, Magnesium 1.7, Total Bilirubin 0.6, AST 32, ALT 38, Troponin I 0.15 *H, Albumin 2.3 L, Triglycerides 65, Cholesterol 69, LDL Cholesterol, Calc 25 L, HDL Cholesterol 31 L, Cholesterol/HDL Ratio 2, TSH 1.790, Cortisol PM Sample 10.3 05/06/16 1853: Lactic Acid 1.1 Microbiology Date/Time Procedure - Status Source Growth 05/06 2299 Surveillance Culture - RECD UPPER RESP 05/06 2299 Surveillance Culture - RECD GI 05/06 2110 Urine Culture - CAN URINE ROUT Cancelled: SPECIMEN NOT RECEIVED IN LABORATORY 05/06 2110 Clostridium difficile Toxin A & B - CAN STOOL Cancelled: SPECIMEN NOT RECEIVED IN LABORATORY Vital Signs Date Time Temp Pulse Resp B/P Pulse O2 O2 Flow FiO2 Ox Delivery Rate 05/07 1600 98.1 72 19 68/32 98 Nasal 2.0L Cannula 05/07 1200 95 Nasal 2.0L Cannula Intake & Output 05/07 1600 Intake Total 1760 Output Total Balance 1760 Intake, IV 1580 Intake, Oral 180 Number 1 Bowel Movements Patient 90 lb Weight
[2016-05-08] VITALS: BP 80/50
--- NOTE | 2016-05-08 02:00 | NUR ---
PATIENT EASILY AROUSABLE.MONITOR SINUS RHYTHM. BP=94/55. IVF AT 150 ML/HR. PT INCONTINENT OF URINE. CLEANSED,TURNED AND REPOSITIONED. L FOOT IN SPLINT AND GLORY WRAP. TOES COOL TO TOUCH.PEDAL PULSE PRESENT.COLOR GOOD. SEEEN BY .
[2016-05-08 06:10] LABS: ABSOLUTE BASOPHIL COUNT 0.1 /CUMM (0.0-0.2); ABSOLUTE EOSINOPHIL COUNT 0.4 /CUMM (0.0-0.7); ABSOLUTE LYMPH COUNT 0.9 /CUMM (1.2-3.4); ABSOLUTE MONOCYTE COUNT 0.4 /CUMM (0.10-0.60); BASOPHIL % 0.8 % (0.0-2.0); EOSINOPHIL % 4.9 % (0-5); GRANULOCYTE % 79.6 % (42.2-75.2); HEMATOCRIT 34.6 % (37-47); MEAN CORPUSCULAR HGB 29.7 PG (27.0-31.0); MEAN CORPUSCULAR HGB CONC 32.4 G/DL (33.0-37.0); MEAN CORPUSCULAR VOLUME 91.7 FL (81.0-99.0); MEAN PLATELET VOLUME 7.2 FL (7.4-10.4); PLATELET COUNT 325 /CUMM (130-400); RBC DISTRIBUTION WIDTH 15.3 % (11.5-14.5); RED BLOOD CELL CT 3.78 /CUMM (4.20-5.40); WHITE BLOOD CELL COUNT 8.8 /CUMM (4.8-10.8)
[2016-05-08 08:00] VITALS: BP 90/54
--- NOTE | 2016-05-08 08:18 | PN- Housestaff ---
Subjective Follow-up For: sepsis of urological origin Subjective: Pt seen today with her daughter at bedside. She was lethargic but arousable and was able to give clear history. Her daughter is not concerned about the mental status, stating that "she is not a morning person". Her BP has improved. She denies abdominal pain, complains of left ankle pain, and left arm pain at the site of BP cuff. Nurse has noted that her left toes are cold, with decreased pulse, although + doppler (although more faint than the right). Surgery aware. Her pain is controlled with tylenol. She had exp wheeze but was in no respiratory distress. She is getting puree and thin diet here, but according to her daughter, she eats regular food at the facility. She does not like puree food, and likes orange juice. Will get swallow evaluatio tomorrow. Pt currently on heart healthy diet, with NS running at 150ml/hr. Labs reviewed, hb 12.3 to 11.2, wbc 9.4 to 8.8, na 134 to 133, k 4.4 to 4.1, mg 2.3. 24 hour data max temp 99.5 HR 68-126 RR 18-26 Systolic bp 50-112 diastolic bp 39-55 RA/2L NC + [id number] incontinent Review of Systems Constitutional: Reports: see HPI. Objective Last 24 Hrs of Vital Signs/I&O Vital Signs Date Time Temp Pulse Resp B/P Pulse O2 O2 Flow FiO2 Ox Delivery Rate 05/08 1200 95 Nasal 2.0L Cannula 05/08 0800 97.2 68 16 90/54 98 Nasal 2.0L Cannula 05/08 0800 95 Nasal 2.0L Cannula 05/08 0400 98 Room Air 05/08 0343 98 Nasal 1.0L Cannula 05/08 0000 98 Nasal 2.0L Cannula 05/08 0000 97.1 68 18 80/50 98 Nasal 2.0L Cannula 05/07 1600 98.1 72 19 68/32 98 Nasal 2.0L Cannula 05/07 1600 96 Nasal 2.0L Cannula Intake & Output 05/08 1600 05/08 0800 05/08 0000 Intake Total 1113 1575 Output Total Balance 1113 1575 Intake, IV 993 1395 Intake, Oral 120 180 Number 3 Bowel Movements Physical Exam General Appearance: Oriented X3, Cooperative, lethargic but arousable Cardiovascular: Regular Rate, Normal S1, Normal S2 Lungs: Clear to Auscultation Abdomen: Normal Bowel Sounds, Soft, No Tenderness Current Medications: Current Medications Sig/Cecily Start time Last Medication Dose Route Stop Time Status Admin Acetaminophen 1,000 MG ONCE ONE 05/07 1400 DC 05/07 IV 05/07 1401 1410 Aspirin 81 MG DAILY 05/07 1000 AC 05/08 PO 1018 Ceftriaxone Sodium 2,000 MG DAILY 05/07 1000 AC 05/08 IV 1018 Ketorolac 30 MG ONCE ONE 05/07 1645 DC 05/07 Tromethamine IV 05/07 1646 1639 Methyl Salicylate 1 ADAMARIS Q4 HRS NEEDED PRN 05/07 1415 AC TOP Sodium Chloride 1,000 ML ONCE ONE 05/07 1600 DC IV 05/07 2239 Sodium Chloride 1,000 ML Q6H 05/07 1600 AC 05/08 IV 1018 Last 24 Hrs of Lab/Colby Results Last 24 Hrs of Labs/Mics: Laboratory Tests 05/08/16 0530: Anion Gap 6, Estimated GFR > 60, Glucose 67, Calcium 8.0 L, Phosphorus 2.3 L, Magnesium 2.3, Total Bilirubin 0.3, AST 35, ALT 37, Albumin 2.0 L, CBC w Diff NO MAN DIFF REQ, RBC 3.78 L, MCV 91.7, MCH 29.7, RDW 15.3 H, MPV 7.2 L, Gran % 79.6 H, Lymphocytes % 9.8 L, Monocytes % 4.9, Eosinophils % 4.9, Basophils % 0.8, Absolute Granulocytes 7.0 H, Absolute Lymphocytes 0.9 L, Absolute Monocytes 0.4, Absolute Eosinophils 0.4, Absolute Basophils 0.1, PUBS MCHC 32.4 L Assessment/Plan Assessment: 81-year-old obese, bed-bound woman, resident of [facility], PMH significant for spinal stenosis, hypertension, neuropathy and bilateral foot drop and chronically bedriden, 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 Initially in the ED, patient was hypotensive around 93/53, MAP of 66 and HR of 123 and RR 18 98% on 2L (not her baseline). Patient received 3.5 of bolous NS and remained hypotensive. A noncontrast CT scan in ER showed nonobstructing left renal calculi and mild interval decrease in the moderate right hydronephrosis. Persistent moderate right hydroureter. # Sepsis most likely due to urological origin, without evidence of end organ damage. -Lactic acid initial 4.8>> 2.1>> 2.6 -Normal cortisol level * Patient admit to ICU for close observation * Heart healthy chopped pure diet, follow up swallow evaluation as pt's daughter says pt eats regular food at the facility * Continue IV hydration normal saline goal to maintain MAP above 65. On NS 150ml /hr. * Ins and outs; goal to maintain urine output above 0.5 mL per KG per hour * Continue cefrtiaxone * Follow up urine culture (cannot be obtained), blood cultures (GNRX2) * Moses catheter placement was attempted by Dr. Spencer for urine sample (UA,UC), Is and O's monitoring as patient has been incontinent, however unable due to severely distorted vaginal anatomy secondary to radiation therapy for vaginal cancer. No need for intervention on kidney stones at this time. Cr stable. No complaints of flank discomfort. Will reconsult urology if family wants to pursue SPT placement. * No aggressive measures # Left ankle fracture - The patient ended up with ankle fracture while moses was attempted - X-rays show a minimally displaced bimalleolar fracture on the left side which is closed. 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 * Continue current conservative management * Ortho on board * Continue splint and and we'll convert this over to a cast in the next 5-7 days. * She must remain nonweightbearing on this left lower extremity for 6 weeks. # Intermittent LBB and wide QRS with positive troponin, most likely due to demand ischemai: Patient was seen by Dr. Antonio for the same finding in 2014. Dynamic EKG changes, could be suggestive of areas of occlusion and reversible ischemia or NSTEMI. - ECHO EF > 65% * Troponins and EKG, 0.09>> 0.15>> 0.13 * Continue aspirin * Lisinopril is held- due to hypotension * Appreciate cardiology input Diet: heart healthy puree and thin IVF: NS 150ml/hr DVT ppx: heparin sc Tylenol for pain DNR/DNI Consults: urology, cardio, ortho, ST Problem List: 1. Sepsis Pain Ratin Pain Location: left ankle Pain Goal: Pain 7 or less Pain Plan: tylenol Tomorrow's Labs & Rationales: cbc and icu critically ill DVT/Prophylaxis: pharmacological
--- NOTE | 2016-05-08 11:51 | NUR ---
@0800-PT DROWSY/AROUS. FOLLOWS SOME COMMANDS. PUPILS EQUAL AND REACTIVE. STATES SHE IS COMFORTABLE AT THIS TIME. AFEBRILE. CONT ON NC 2L, 02SAT 97%. PLACED ON RA DURING MEAL TIME WITH O2SAT 95%-97% BUT DESATS WHEN SLEEPING. LUNGS AUSCULTATED AND EXP WHEEZE NOTED. PT DENIES SOB. NO COUGH NOTED. ECHO ORD FOR THIS AM. NSR/BBB HR 60-70S, OCC PACS. SBP 80-90. CONT ON IVF NS INFUSING AT 150ML/HR. HH PUREED DIET-ATTEMPTED TO FEED THIS AM-25% OF CREAM OF WHEAT CONSUMED. PT INC OF LARGE AMTS OF URINE-INC CARE PROVIDED. SKIN INTACT WITH SCABBED AREA TO L ELBOW. CAST INTACT TO L ANKLE-BILAT FEET NOTED TO BE COOL TO TOUCH, PALE IN COLOR. MILD NUMBNESS REPORTED BY PT TO L LEG/TOES. DOPPLER PULSES CHECKED AND OBTAINABLE BUT L PEDAL DOPPLER PULSE FAINT COMPARED TO R PEDAL DOPPLER PULSE. +EDEMA NOTED TO BLE, ELEVATED ON PILLOWS. LABS WNL. CONT TO MONITOR CLOSELY. CALL SIBLEY WITHIN REACH.
--- NOTE | 2016-05-08 12:38 | PN- Att Addend ---
Attending Addendum Attending Brief Note Covering attending note: Patient quietly in bed at the present time response when called temperature 97.2 pulse 68 respirations 16 blood pressure 90/54 WBCs 8800 and no major changes on physical. No receive years plantar heroics as per family's request continue present treatment 24 TOTALS 05/08 0000 05/07 0000 Intake Total 4743 3000 Output Total Balance 4743 3000 Intake, IV 4083 3000 Intake, Oral 660 Number 4 Bowel Movements Patient 90 lb 140 lb Weight Current Medications Sig/Cecily Start time Last Medication Dose Route Stop Time Status Admin Acetaminophen 1,000 MG ONCE ONE 05/07 1400 DC 05/07 IV 05/07 1401 1410 Aspirin 81 MG DAILY 05/07 1000 AC 05/08 PO 1018 Ceftriaxone Sodium 2,000 MG DAILY 05/07 1000 AC 05/08 IV 1018 Ketorolac 30 MG ONCE ONE 05/07 1645 DC 05/07 Tromethamine IV 05/07 1646 1639 Methyl Salicylate 1 ADAMARIS Q4 HRS NEEDED PRN 05/07 1415 AC TOP Sodium Chloride 1,000 ML ONCE ONE 05/07 1600 DC IV 05/07 2239 Sodium Chloride 1,000 ML Q6H 05/07 1600 AC 05/08 IV 1018 Sodium Chloride 500 ML BOLUS ONE 05/07 1215 DC 05/07 IV 05/07 1314 1215 Laboratory Tests 05/08/16 0530: Anion Gap 6, Estimated GFR > 60, Glucose 67, Calcium 8.0 L, Phosphorus 2.3 L, Magnesium 2.3, Total Bilirubin 0.3, AST 35, ALT 37, Albumin 2.0 L, CBC w Diff NO MAN DIFF REQ, RBC 3.78 L, MCV 91.7, MCH 29.7, RDW 15.3 H, MPV 7.2 L, Gran % 79.6 H, Lymphocytes % 9.8 L, Monocytes % 4.9, Eosinophils % 4.9, Basophils % 0.8, Absolute Granulocytes 7.0 H, Absolute Lymphocytes 0.9 L, Absolute Monocytes 0.4, Absolute Eosinophils 0.4, Absolute Basophils 0.1, PUBS MCHC 32.4 L 05/07/16 0445: Anion Gap 9, Estimated GFR > 60, Glucose 89, Calcium 8.5, Phosphorus 2.9, Magnesium 2.9 H, Total Bilirubin 0.5, AST 35, ALT 38, Troponin I 0.13 *H, Albumin 2.6 L, CBC w Diff NO MAN DIFF REQ, RBC 4.17 L, MCV 92.2, MCH 29.5, RDW 15.6 H, MPV 7.6, Gran % 89.7 H, Lymphocytes % 6.6 L, Monocytes % 2.1, Eosinophils % 1.1, Basophils % 0.5, Absolute Granulocytes 8.4 H, Absolute Lymphocytes 0.6 L, Absolute Monocytes 0.2, Absolute Eosinophils 0.1, Absolute Basophils 0.1, PUBS MCHC 32.0 L 05/06/16 2240: Anion Gap 7, Estimated GFR > 60, Glucose 95, Calcium 8.1 L, Phosphorus 3.1, Magnesium 1.7, Total Bilirubin 0.6, AST 32, ALT 38, Troponin I 0.15 *H, Albumin 2.3 L, Triglycerides 65, Cholesterol 69, LDL Cholesterol, Calc 25 L, HDL Cholesterol 31 L, Cholesterol/HDL Ratio 2, TSH 1.790, Cortisol PM Sample 10.3 05/06/16 1853: Lactic Acid 1.1 05/06/16 1516: Anion Gap 9, Estimated GFR > 60, BUN/Creatinine Ratio 25.0, Glucose 124 H, Serum Osmolality 290, Lactic Acid 1.6, Calcium 9.1, Total Bilirubin 0.9, AST 42 H, ALT 33, Alkaline Phosphatase 116, Troponin I 0.09, Total Protein 6.0 L, Albumin 2.7 L, Globulin 3.3, Albumin/Globulin Ratio 0.8 L, Lipase 25, PT 13.6 H, INR 1.30 H, APTT 29, CBC w Diff MAN DIFF ORDERED, RBC 4.11 L, MCV 91.5, MCH 29.7, RDW 15.1 H, MPV 7.4, Gran % 91.4 H, Lymphocytes % 3.6 L, Monocytes % 4.3, Eosinophils % 0.5, Basophils % 0.2, Absolute Granulocytes 15.5 H, Segmented Neutrophils 88 H, Band Neutrophils 4, Absolute Lymphocytes 0.6 L, Lymphocytes 4 L, Monocytes 3, Absolute Monocytes 0.7 H, Absolute Eosinophils 0.1, Basophils 1, Absolute Basophils 0, Platelet Estimate ADEQUATE, Normocytic RBCs VERIFIED, Normochromic RBCs VERIFIED, Polychromasia , PUBS MCHC 32.4 L 05/06/16 1508: Urine Color Cancelled, Urine Clarity Cancelled, Urine pH Cancelled, Ur Specific [place] Cancelled, Urine Protein Cancelled, Urine Ketones Cancelled, Urine Nitrite Cancelled, Urine Bilirubin Cancelled, Urine Urobilinogen Cancelled, Ur Leukocyte Esterase Cancelled, Ur Microscopic Cancelled, Urine Hemoglobin Cancelled, Urine Glucose Cancelled 05/06/16 1508: Urine Osmolality Cancelled, Ur Random Creatinine Cancelled, Ur Random Sodium Cancelled, Ur Random Potassium Cancelled, Fraction Sodium Excret Cancelled Microbiology 05/06 2299 UPPER RESP: Surveillance Culture - COMP 05/06 2299 GI: Surveillance Culture - COMP
--- NOTE | 2016-05-08 13:50 | ECHOCARDIOGRAM REPORT ---
FELICIANO SMITH Age: 81 : 1935 Gender: F Exam Date: 05/08/2016 09:52 Exam Location: [facility] Ht (in): 59 Wt (lb): 90 BSA: 1.30 BP: 80 / 50 Ordering Physician: DENICE PERDUE MD Referring Physician: Oscar Fernandez MD Chief, SoC Technologist: Jeanette Franco [facility] Room Number: 112 Indications: ARRHYTHMIAS Rhythm: Sinus Technical Quality: Fair FINDINGS Left Ventricle Normal size left ventricle. Left ventricular wall thickness at upper limits of normal. Normal left ventricular ejection fraction visually estimated at >65 %. No obvious regional wall motion abnormalities. Normal left ventricular diastolic filling pattern for age. Right Ventricle The right ventricle is normal in size and function. Right Atrium The right atrium is normal in size. Left Atrium The left atrium is normal in size. The interatrial septum is intact. Mitral Valve Moderate thickening/calcification of the mitral valve leaflets. Moderate mitral annular calcification. Mild mitral regurgitation. Aortic Valve Diffuse thickening (sclerosis) of the aortic valve cusps without reduced excursion. No aortic stenosis. Mild aortic regurgitation. Tricuspid Valve Tricuspid valve is normal in structure and function. Mild tricuspid regurgitation. Right ventricular systolic pressure estimated to be at upper limits of normal at 35 mmHg. Pulmonic Valve Structurally normal pulmonic valve. There is mild pulmonic regurgitation. Pericardium Normal pericardium without effusion. No pleural effusion. Great Vessels Normal aortic root dimension. The aortic arch and great vessels are well seen and are normal. CONCLUSIONS Left ventricular wall thickness at upper limits of normal. Normal left ventricular ejection fraction visually estimated at >65 The left atrium is normal in size. Moderate thickening/calcification of the mitral valve leaflets. Moderate mitral annular calcification. Mild mitral regurgitation. Diffuse thickening (sclerosis) of the aortic valve cusps without reduced excursion. No aortic stenosis. Mild aortic regurgitation. Right ventricular systolic pressure estimated to be at upper limits of normal at 35 mmHg. Oscar Fernandez M.D. (Electronically Signed) Final Date: 08 May 2016 13:49 MEASUREMENTS (Male / Female) Normal Values 2D ECHO LV Diastolic Diameter PLAX 3.7 cm 4.2 - 5.9 / 3.9 - 5.3 cm LV Systolic Diameter PLAX 2.3 cm 2.1 - 4.0 cm LV Fractional Shortening PLAX 37.8 % 25 - 46 % LV Ejection Fraction 2D Teich 68.8 % IVS Diastolic Thickness 1.1 cm LVPW Diastolic Thickness 1.1 cm LV Relative Wall Thickness 0.6 RV Internal Dim ED PLAX 2.5 cm 1.9 - 3.8 cm LVOT Diameter 2.0 cm Aortic Root Diameter 3.3 cm LA Systolic Diameter LX 3.3 cm 3.0 - 4.0 / 2.7 - 3.8 cm LA Volume 32.0 cm 18 - 58 / 22 - 52 cm Ascending Aorta Diameter 3.1 cm DOPPLER AV Peak Velocity 136.0 cm/s AV Peak Gradient 7.4 mmHg AV Mean Velocity 94.9 cm/s AV Mean Gradient 4.0 mmHg AV Velocity Time Integral 26.0 cm AI Deceleration [place] 91.2 cm/s AI Peak Velocity 299.0 cm/s AI Pressure Half Time 961.0 ms AI Peak Gradient 35.8 mmHg LVOT Peak Velocity 74.4 cm/s LVOT Peak Gradient 2.2 mmHg LVOT Mean Velocity 47.1 cm/s LVOT Mean Gradient 1.0 mmHg LVOT Velocity Time Integral 14.0 cm LVOT Stroke Volume 44.0 cm AV Area Cont Eq vti 1.7 cm AV Area Cont Eq pk 1.7 cm MV Peak Velocity 130.0 cm/s MV Peak Gradient 6.8 mmHg MV Mean Velocity 84.1 cm/s MV Mean Gradient 3.0 mmHg Mitral E Point Velocity 114.0 cm/s Mitral A Point Velocity 122.0 cm/s Mitral E to A Ratio 0.9 MV PHT Velocity 128.0 cm/s MV Deceleration [place] 373.0 cm/s MV Pressure Half Time 102.9 ms MV Area PHT 2.1 cm MV Deceleration Time 251.0 ms TR Peak Velocity 277.0 cm/s TR Peak Gradient 30.7 mmHg Right Atrial Pressure 5.0 mmHg Pulmonary Artery Systolic Pressu 35.7 mmHg Right Ventricular Systolic Press 35.7 mmHg PV Peak Velocity 85.9 cm/s PV Peak Gradient 3.0 mmHg PV Mean Velocity 59.3 cm/s PV Mean Gradient 2.0 mmHg PV Velocity Time Integral 21.9 cm LV E' Lateral Velocity 10.7 cm/s Mitral E to LV E' Lateral Ratio 10.7 LV E' Septal Velocity 4.7 cm/s Mitral E to LV E' Septal Ratio 24.4
[2016-05-08 16:00] VITALS: BP 102/56
--- NOTE | 2016-05-09 07:33 | PN- Housestaff ---
Subjective Follow-up For: sepsis of urological origin Subjective: Patient seen and examined this morning. He comfortably in bed in no acute distress. She reports that she feels really good today, except for just mild pain in her left ankle. Denies fever, chest pain, palpitation, abdominal pain, any urinary symptoms. Systolic blood pressure ranging 100 to 110. Today labs pending. Review of Systems Constitutional: Denies: chills, fever. Cardiovascular: Denies: chest pain, palpitations. Respiratory: Reports: wheezing. Denies: cough, short of breath, sputum production. Gastrointestinal: Denies: abdominal pain, constipation, nausea, vomiting. Genitourinary: Reports: see HPI. Objective Last 24 Hrs of Vital Signs/I&O Vital Signs Date Time Temp Pulse Resp B/P Pulse O2 O2 Flow FiO2 Ox Delivery Rate 05/09 0400 99 Nasal 2.0L Cannula 05/09 0000 97 Nasal 2.0L Cannula 05/08 2000 96 Nasal 2.0L Cannula 05/08 1600 95 Room Air Room Air 05/08 1600 97.9 84 21 102/56 95 Room Air Room Air 05/08 1200 95 Nasal 2.0L Cannula 05/08 0800 97.2 68 16 90/54 98 Nasal 2.0L Cannula 05/08 0800 95 Nasal 2.0L Cannula Intake & Output 05/09 0800 05/09 0000 05/08 1600 Intake Total 1500 1620 1873 Output Total Balance 1500 1620 1873 Intake, IV 1200 1200 1243 Intake, Oral 300 420 630 Number 0 1 1 Bowel Movements Physical Exam General Appearance: Alert, Oriented X3, Cooperative, No Acute Distress Cardiovascular: Regular Rate, Normal S1, Normal S2, No Murmurs Lungs: bilateral wheezing Abdomen: Normal Bowel Sounds, Soft, No Tenderness Extremities: No Clubbing, No Cyanosis, B/L pitting edema, Current Medications: Current Medications Sig/Cecily Start time Last Medication Dose Route Stop Time Status Admin Aspirin 81 MG DAILY 05/07 1000 AC 05/08 PO 1018 Ceftriaxone Sodium 2,000 MG DAILY 05/07 1000 AC 05/08 IV 1018 Heparin Sodium 5,000 UNIT Q8 05/08 1404 AC 05/09 (Porcine) SC 0600 Ketorolac 30 MG ONCE ONE 05/080 DC 05/08 Tromethamine IV 05/08 220 2200 Methyl Salicylate 1 ADAMARIS Q4 HRS NEEDED PRN 05/07 1415 AC TOP Sodium Chloride 1,000 ML Q6H 05/07 1600 DC 05/09 IV 0004 Last 24 Hrs of Lab/Colby Results Last 24 Hrs of Labs/Mics: Laboratory Tests 05/09/16 0600: Sodium Pending, Potassium Pending, Chloride Pending, Carbon Dioxide Pending, Anion Gap Pending, BUN Pending, Creatinine Pending, Glucose Pending, Calcium Pending, Phosphorus Pending, Magnesium Pending, Total Bilirubin Pending, AST Pending, ALT Pending, Albumin Pending, CBC w Diff Pending, WBC Pending, RBC Pending, Hgb Pending, Hct Pending, MCV Pending, MCH Pending, RDW Pending, Plt Count Pending, MPV Pending, PUBS MCHC Pending Assessment/Plan Assessment: 81-year-old obese, bed-bound woman, resident of [facility], PMH significant for spinal stenosis, hypertension, neuropathy and bilateral foot drop and chronically bedriden, 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 Initially in the ED, patient was hypotensive around 93/53, MAP of 66 and HR of 123 and RR 18 98% on 2L (not her baseline). Patient received 3.5 of bolous NS and remained hypotensive. A noncontrast CT scan in ER showed nonobstructing left renal calculi and mild interval decrease in the moderate right hydronephrosis. Persistent moderate right hydroureter. # Sepsis most likely due to urological origin, without evidence of end organ damage. -Lactic acid initial 4.8>> 2.1>> 2.6 -Normal cortisol level * Patient admit to ICU for close observation * Heart healthy chopped pure diet, follow up swallow evaluation as pt's daughter says pt eats regular food at the facility * Continue IV hydration normal saline goal to maintain MAP above 65. On NS 150ml /hr. * Ins and outs; goal to maintain urine output above 0.5 mL per KG per hour * Continue cefrtiaxone * Follow up urine culture (cannot be obtained), blood cultures (GNRX2) * Beckman catheter placement was attempted by Dr. Spencer for urine sample (UA,UC), Is and O's monitoring as patient has been incontinent, however unable due to severely distorted vaginal anatomy secondary to radiation therapy for vaginal cancer. No need for intervention on kidney stones at this time. Cr stable. No complaints of flank discomfort. Will reconsult urology if family wants to pursue SPT placement. * No aggressive measures # Left ankle fracture - X-rays show a minimally displaced bimalleolar fracture on the left side which is closed. 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 * Continue current conservative management * Ortho on board * Continue splint and and we'll convert this over to a cast in the next 5-7 days. * She must remain nonweightbearing on this left lower extremity for 6 weeks. # Intermittent LBB and wide QRS with positive troponin, most likely due to demand ischemai: Patient was seen by Dr. Antonio for the same finding in 2014. Dynamic EKG changes, could be suggestive of areas of occlusion and reversible ischemia or NSTEMI. - ECHO EF > 65% * Troponins and EKG, 0.09>> 0.15>> 0.13 * Continue aspirin * Lisinopril is held- due to hypotension * Appreciate cardiology input Diet: heart healthy puree and thin IVF: NS 150ml/hr DVT ppx: heparin sc Tylenol for pain DNR/DNI Consults: urology, cardio, ortho, ST Problem List: 1. Hydronephrosis, right 2. Sepsis Pain Ratin Pain Location: ankle Pain Goal: Remain pain free Pain Plan: tylenol Tomorrow's Labs & Rationales: cbc bep DVT/Prophylaxis: pharmacological
[2016-05-09 07:49] LABS: ABSOLUTE BASOPHIL COUNT 0 /CUMM (0.0-0.2); ABSOLUTE EOSINOPHIL COUNT 0.8 /CUMM (0.0-0.7); ABSOLUTE GRANULOCYTE CT 6.1 /CUMM (1.4-6.5); ABSOLUTE LYMPH COUNT 1.3 /CUMM (1.2-3.4); ABSOLUTE MONOCYTE COUNT 0.6 /CUMM (0.10-0.60); BASOPHIL % 0.5 % (0.0-2.0); EOSINOPHIL % 8.8 % (0-5); GRANULOCYTE % 69.6 % (42.2-75.2); MEAN CORPUSCULAR HGB 29.7 PG (27.0-31.0); MEAN CORPUSCULAR HGB CONC 32.7 G/DL (33.0-37.0); MEAN CORPUSCULAR VOLUME 90.8 FL (81.0-99.0); MEAN PLATELET VOLUME 7.9 FL (7.4-10.4); PLATELET COUNT 332 /CUMM (130-400); RBC DISTRIBUTION WIDTH 15.7 % (11.5-14.5); RED BLOOD CELL CT 3.75 /CUMM (4.20-5.40); WHITE BLOOD CELL COUNT 8.8 /CUMM (4.8-10.8)
[2016-05-09 08:00] VITALS: BP 120/60
--- NOTE | 2016-05-09 09:15 | PN- Att Addend ---
Attending Addendum Attending Brief Note Patient this morning is alert and awake. She is refusing to have suprapubic catheter. General Appearance: Alert, No Acute Distress Skin: Grossly normal HEENT: [place]ERLA Neck: Supple, No JVD Cardiovascular: Regular Rate, Normal S1, Normal S2, No Murmurs Lungs: Clear to Auscultation, Normal Air Movement Abdomen: Normal Bowel Sounds, Soft, No Tenderness Neurological: Normal Speech, Strength at 5/5 X4 Ext, Cranial Nerves 3-12 NL, Reflexes 2+ Extremities: No Clubbing, No Cyanosis, No Edema Vascular: Normal Pulses Assessment 81-year-old [facility] resident presented with sepsis of urological origin. Her blood pressure has now improved on ceftriaxone and she has gram-negative rods in blood awaiting identification. Patient has refused to have a suprapubic catheter placed. Currently she is making unquantifiable urine. Positive troponins likely demand. Plan Continue ceftriaxone Follow blood cultures Continue other home meds and supportive care DNI/DNR Patient stable for transfer to general med Current Medications Sig/Cecily Start time Last Medication Dose Route Stop Time Status Admin Aspirin 81 MG DAILY 05/07 1000 AC 05/08 PO 1018 Ceftriaxone Sodium 2,000 MG DAILY 05/07 1000 AC 05/08 IV 1018 Heparin Sodium 5,000 UNIT Q8 05/08 1404 AC 05/09 (Porcine) SC 0600 Ketorolac 30 MG ONCE ONE 05/080 DC 05/08 Tromethamine IV 05/08 220 2200 Methyl Salicylate 1 ADAMARIS Q4 HRS NEEDED PRN 05/07 1415 AC TOP Sodium Chloride 1,000 ML Q6H 05/07 1600 DC 05/09 IV 0004 Laboratory Tests 05/09 0600 Chemistry Sodium (137 - 145 mmol/L) 134 L Potassium (3.5 - 5.1 mmol/L) 4.3 Chloride (98 - 107 mmol/L) 111 H Carbon Dioxide (22 - 30 mmol/L) 19 L Anion Gap (5 - 16) 4 L BUN (7 - 17 mg/dL) 9 Creatinine (0.5 - 1.0 mg/dL) 0.5 Estimated GFR (>60 ml/min) > 60 Glucose (65 - 99 mg/dL) 66 Calcium (8.4 - 10.2 mg/dL) 7.9 L Phosphorus (2.5 - 4.5 mg/dL) 1.8 L Magnesium (1.6 - 2.3 mg/dL) 2.0 Total Bilirubin (0.2 - 1.3 mg/dL) 0.3 AST (14 - 36 U/L) 24 ALT (9 - 52 U/L) 36 Albumin (3.5 - 5.0 g/dL) 1.9 L Hematology CBC w Diff NO MAN DIFF REQ WBC (4.8 - 10.8 /CUMM) 8.8 RBC (4.20 - 5.40 /CUMM) 3.75 L Hgb (12.0 - 16.0 G/DL) 11.1 L Hct (37 - 47 %) 34.0 L MCV (81.0 - 99.0 FL) 90.8 MCH (27.0 - 31.0 PG) 29.7 RDW (11.5 - 14.5 %) 15.7 H Plt Count (130 - 400 /CUMM) 332 MPV (7.4 - 10.4 FL) 7.9 Gran % (42.2 - 75.2 %) 69.6 Lymphocytes % (20.5 - 51.1 %) 14.5 L Monocytes % (1.7 - 9.3 %) 6.6 Eosinophils % (0 - 5 %) 8.8 H Basophils % (0.0 - 2.0 %) 0.5 Absolute Granulocytes (1.4 - 6.5 /CUMM) 6.1 Absolute Lymphocytes (1.2 - 3.4 /CUMM) 1.3 Absolute Monocytes (0.10 - 0.60 /CUMM) 0.6 Absolute Eosinophils (0.0 - 0.7 /CUMM) 0.8 Absolute Basophils (0.0 - 0.2 /CUMM) 0 PUBS MCHC (33.0 - 37.0 G/DL) 32.7 L Vital Signs Date Time Temp Pulse Resp B/P Pulse O2 O2 Flow FiO2 Ox Delivery Rate 05/09 0400 99 Nasal 2.0L Cannula 05/09 0000 97 Nasal 2.0L Cannula 05/08 2000 96 Nasal 2.0L Cannula 05/08 1600 95 Room Air Room Air 05/08 1600 97.9 84 21 102/56 95 Room Air Room Air 05/08 1200 95 Nasal 2.0L Cannula
--- NOTE | 2016-05-09 10:14 | Cons- Orthopedic ---
General Information and HPI Consulting Request Date of Consult: 05/09/16 Requested By: SUPRIYA MCNEIL MD History of Present Illness: 81 yr old non-ambulator with left lower leg pain. was admitted for spesis and was moved in bed felt left lower leg pain. x-rays show a distal tib/fib fracture. was placed into a splint. patient is a non-ambulator. Allergies/Medications Allergies: Coded Allergies: meperidine (From DEMEROL) (DIARRHEA 05/06/16) Home Med List: Acetaminophen (Mapap Arthritis Pain) 650 MG TABLET.ER 1 TAB PO Q4 HRS NEEDED PRN PAIN (Reported) Acetaminophen (Acephen) 650 MG SUPP.RECT 1 SUP UT Q4 HRS NEEDED PRN PAIN ( Reported) Aspirin (Children's Aspirin) 81 MG TAB.CHEW 1 TAB PO DAILY HEART HEALTH ( Reported) Bisacodyl (Bisac-Evac) 10 MG SUPP.RECT 1 SUPP UT DAILY NEEDED PRN CONSTIPATION (Reported) Calcium Carbonate/Vitamin D3 (Oyster Shell Calcium +D Tablet) 500 MG-200 TABLET 1 TAB PO DAILY SUPPLEMENT (Reported) Cyanocobalamin (Vitamin B-12) 1,000 MCG TABLET 1 TAB PO DAILY SUPPLEMENT ( Reported) Dicyclomine HCl 20 MG TABLET 1 TAB PO TID PRN GI (Reported) Escitalopram Oxalate 10 MG TABLET 1.5 TAB PO DAILY DEPRESSION (Reported) Lisinopril (Prinivil) 20 MG TABLET 1 TAB PO DAILY HTN (Reported) Loperamide HCl (Loperamide) 2 MG CAPSULE 1 CAP PO Q6 PRN LOOSE STOOLS ( Reported) Magnesium Hydroxide (Milk Of Magnesia) 400 MG/5 ML ORAL.SUSP 30 ML PO DAILY NEEDED PRN CONSTIPATION (Reported) Melatonin 3 MG TABLET 1 TAB PO QPM PRN SLEEP (Reported) Multivitamin (Multiple Vitamins) 1 EACH TABLET 1 TAB PO DAILY SUPPLEMENT ( Reported) Na Phos,M-B/Na Phos,Di-Ba (Fleet Enema Extra) 19 GRAM-7 GRAM/197 ML ENEMA 1 E RC DAILY PRN CONSTIPATION (Reported) Naproxen Sodium (Aleve) 220 MG CAPSULE 1 TAB PO BID PRN PAIN (Reported) Nitrofurantoin Macrocrystal (Nitrofurantoin) 50 MG CAPSULE 1 CAP PO QPM ANTIBIOTIC, INFECTION (Reported) Omeprazole 20 MG CAPSULE.DR 1 CAP PO DAILY GI (Reported) Ondansetron HCl (Zofran) 4 MG TABLET 1 TAB PO Q8P PRN NAUSEA/VOMITING ( Reported) Prochlorperazine (Compazine) 25 MG SUPP.RECT 1 SUP UT DAILY PRN NAUSEA/ VOMITING (Reported) Simethicone (Gas-X) 125 MG CAPSULE 1 TAB PO Q6-PRN PRN ABDOMINAL PAIN ( Reported) Past History Medical History Blood Transfusion Hx: Yes Neurological: NEUROPATHY EENT: cataracts, new right hydronephrosis Cardiovascular: hypertension Respiratory: NONE Gastrointestinal: colitis, Crohn's disease Hepatic: NONE Renal: NONE Musculoskeletal: spinal stenosis, FOOT DROP Psychiatric: depression Endocrine: NONE Blood Disorders: NONE 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 SISTER (colon cancer). Psychosocial History Where Do You Live? Care Home Facility Who Do You Live With? self Services at Home: Home Health Aide, Nursing Primary Language: Armenian Smoking Status: Never Smoked ETOH Use: denies use Illicit Drug Use: denies illicit drug use Living Will? yes Power of Batch Roller Operator/HCP? her daughter Functional Ability ADLs Needs Assist: dressing, eating, toileting, bathing. Ambulation: wheelchair-bound IADLs Needs Assist: shopping, housework, finances, food prep, telephone, transportation, medication admin. Review of Systems Review of Systems: see chart Exam & Diagnostic Data Vital Signs and I&O Vital Signs Date Time Temp Pulse Resp B/P Pulse O2 O2 Flow FiO2 Ox Delivery Rate 05/09 0400 99 Nasal 2.0L Cannula 05/09 0000 97 Nasal 2.0L Cannula 05/08 2000 96 Nasal 2.0L Cannula 05/08 1600 95 Room Air Room Air 05/08 1600 97.9 84 21 102/56 95 Room Air Room Air 05/08 1200 95 Nasal 2.0L Cannula Intake & Output 05/09 1600 05/09 0800 05/09 0000 05/08 1600 05/08 0800 05/08 0000 Intake Total 1500 1620 1873 1113 1575 Output Total Balance 1500 1620 1873 1113 1575 Intake, IV 1200 1200 9044 746 1292 Intake, Oral 300 420 630 120 180 Number 0 1 1 3 Bowel Movements Physical Exam: left lower extremity n/v intact. skin is intact. no breakdown of skin. x-rays show a minimally displaced distal tib/fib fracture. there is significant amount of osteoporsis. tender over distal tib/fib. has no motion of ankle joint. placed into a well padded short leg cast today. Assessment/Plan Assessment/Plan left distal tib/fib fracture -short leg cast applied. -patient is a non-ambulator and not surgical candidate. -no weight on left lower extremity -f/u 8 weeks in our office with myself or dr carranza for repeat films of ankle. [phone] Consult Acknowledgment - Thank you for your consult request.
[2016-05-09 16:00] VITALS: BP 126/70
--- NOTE | 2016-05-09 16:07 | Transfer of Care Summary ---
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 Initially in the ED, patient was hypotensive around 93/53, MAP of 66 and HR of 123 and RR 18 98% on 2L (not her baseline). Patient received 3.5 of bolous NS and remained hypotensive. A noncontrast CT scan in ER showed nonobstructing left renal calculi and mild interval decrease in the moderate right hydronephrosis. Persistent moderate right hydroureter. # Sepsis most likely due to urological origin, without evidence of end organ damage. -Lactic acid initial 4.8>> 2.1>> 2.6, received IV hydration normal saline at 150ml/hr alongwith strict Is&Os, was started on cefrtiaxone. Blood cultures grew Proteus sensitive to Amoxicillin. No urine sample obtained, Beckman catheter placement was attempted by Dr. Spencer for urine sample (UA,UC), Is and O's monitoring as patient has been incontinent, however unable due to severely distorted vaginal anatomy secondary to radiation therapy for vaginal cancer. No Central lines/pressors given as patient and family denied any agrresive measures. * Switched to Amoxicillin 500mg TID(05/09/16), please see patient clinical response to decide on total duration of treatment. # Left ankle fracture - X-rays show a minimally displaced bimalleolar fracture on the left side which is closed. 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 * short leg cast applied, She must remain nonweightbearing on this left lower extremity for 6 weeks. * Continue current conservative management, patient is a non-ambulator and not surgical candidate * Ortho on board, f/u 8 weeks in our office with myself or dr carranza for repeat films of ankle. [phone] * Continue splint and and we'll convert this over to a cast in the next 5-7 days. * no weight on left lower extremity # Intermittent LBBB and wide QRS with positive troponin, most likely due to demand ischemai: Patient was seen by Dr. Antonio for the same finding in 2015. Dynamic EKG changes, could be suggestive of areas of occlusion and reversible ischemia or NSTEMI. - ECHO EF > 65% * Troponins and EKG, 0.09>> 0.15>> 0.13 * Continue aspirin * Lisinopril was held- due to hypotension * Cardiology on board, please follow up Diet: heart healthy DVT ppx: heparin sc Tylenol for pain DNR/DNI Assessment/Plan: .
--- NOTE | 2016-05-09 16:15 | Patient Discharge Instructions ---
Discharge Instructions General Discharge Information You were seen/treated for: sepsis of urological origin Special Instructions: please follow up with your PCP within one week of discharge. -f/u 8 weeks shawn SALDANA or dr carranza for -repeat films of ankle. -Continue splint and and needs to be convert this over to a cast in the next 5-7 days. -no weight on left lower extremity -please continue to take your medications as prescribed. Activity Full Activity/No Limits: No Activity Self Limited: Yes Acute Coronary Syndrome Inclusion Criteria At DC or during hospital stay patient has or had the following: ACS DIAGNOSIS No Discharge Core Measures Meds if any: Prescribed or Continued at Discharge Meds if any: NOT Prescribed or Continued at Discharge Congestive Heart Failure Inclusion Criteria At DC or during hospital stay patient has or had the following: CHF DIAGNOSIS No Discharge Core Measures Meds if any: Prescribed or Continued at Discharge Meds if any: NOT Prescribed or Continued at Discharge Cerebrovascular accident Inclusion Criteria At DC or during hospital stay patient has or had the following: CVA/TIA Diagnosis No Discharge Core Measures Meds if any: Prescribed or Continued at Discharge Meds if any: NOT Prescribed or Continued at Discharge Venous thromboembolism Inclusion Criteria VTE Diagnosis No VTE Type NONE VTE Confirmed by (Test) NONE Discharge Core Measures - Per Current guidelines, there needs to be overlap - treatment for the first 5 days of Warfarin therapy. - If discharged on Warfarin prior to 5 days of - overlap therapy, the patient will need to be - assessed for post discharge needs including - *Post discharge parental anticoagulation - *Warfarin and/or parental anticoagulation education - *Follow up date to check INR post discharge At least 5 days overlap therapy as Inpatient No Meds if any: Prescribed or Continued at Discharge Note: Overlap Therapy is Warfarin and Anticoagulant Meds if any: NOT Prescribed or Continued at Discharge
[2016-05-09 22:24] VITALS: BP 142/80
--- NOTE | 2016-05-10 06:14 | NUR ---
AT 0415 PT C/O PAIN 11/15. NO PRN ORDERS FOR PAIN MEDS, PAGED BRODY WELLS MD, ONE TIME ORDER ULTRAM PLACED. ADMINISTERED MEDS PER ORDERS. WILL CONTINUE TO MONITOR.
[2016-05-10 07:27] VITALS: BP 110/68
--- NOTE | 2016-05-10 07:30 | PN- Housestaff ---
Subjective Follow-up For: sepsis of urological origin Subjective: Afebrile, WBCs within normal limits, hemodynamically stable. No acute overnight events reported. Patient looks relaxed uncomfortable. Patient still complaining of mild pain in her ankle. She denies flank pain, dysuria, hematuria, fever, chills or abdominal pain. Review of Systems Constitutional: Reports: see HPI. Objective Last 24 Hrs of Vital Signs/I&O Vital Signs Date Time Temp Pulse Resp B/P Pulse O2 O2 Flow FiO2 Ox Delivery Rate 05/10 1635 98.2 80 24 130/80 05/10 1440 98.2 80 24 130/80 93 05/10 0727 97.9 95 23 110/68 94 Room Air 05/09 2224 98.9 102 24 142/80 94 Room Air Intake & Output 05/10 1600 05/10 0800 05/10 0000 Intake Total 480 200 200 Output Total Balance 480 200 200 Intake, IV 0 0 Intake, Oral 480 200 200 Number 0 0 0 Bowel Movements Physical Exam General Appearance: Alert, Oriented X3, Cooperative, No Acute Distress Skin: No Rashes HEENT: Atraumatic, PERRLA, EOMI, Mucous Membr. moist/pink Cardiovascular: Regular Rate, Normal S1, Normal S2, No Murmurs Lungs: Clear to Auscultation, Normal Air Movement Abdomen: Normal Bowel Sounds, Soft, No Tenderness Neurological: Normal Speech Extremities: No Clubbing, No Cyanosis, No Edema Current Medications: Current Medications Sig/Cecily Start time Last Medication Dose Route Stop Time Status Admin Amoxicillin 500 MG Q8H 05/09 1430 DC 05/10 PO 0521 Amoxicillin/ 500 MG Q12 05/10 2200 DCD Clavulanate Potassium PO Aspirin 81 MG DAILY 05/07 1000 DCD 05/10 PO 1022 Heparin Sodium 5,000 UNIT Q8 05/08 1404 DCD 05/10 (Porcine) SC 1426 Methyl Salicylate 1 ADAMARIS Q4 HRS NEEDED PRN 05/07 1415 DCD TOP Patient Medication 1 ED .STK-MED ONE 05/10 1345 IA Teaching ED 05/10 1346 Tramadol HCl 50 MG Q8 05/10 1400 DCD 05/10 PO 1421 Tramadol HCl 50 MG ONCE ONE 05/10 0415 DC 05/10 PO 05/10 0416 0519 Tramadol HCl 50 MG ONCE ONE 04/03 2230 DC 05/09 PO 05/09 2231 2240 Tramadol HCl 50 MG Q12 05/09 2200 DC 05/09 PO 1716 Last 24 Hrs of Lab/Colby Results Last 24 Hrs of Labs/Mics: Laboratory Tests 05/10/16 0655: Anion Gap 4 L, Estimated GFR > 60, Glucose 82, Calcium 8.6, Phosphorus 1.7 L, Magnesium 2.0, Total Bilirubin 0.4, AST 21, ALT 33, Albumin 2.0 L, CBC w Diff NO MAN DIFF REQ, RBC 3.56 L, MCV 89.6, MCH 29.7, RDW 15.5 H, MPV 7.7, Gran % 65.7, Lymphocytes % 19.3 L, Monocytes % 7.1, Eosinophils % 7.3 H, Basophils % 0.6, Absolute Granulocytes 5.7, Absolute Lymphocytes 1.7, Absolute Monocytes 0.6 , Absolute Eosinophils 0.6, Absolute Basophils 0, PUBS MCHC 33.1 Assessment/Plan Assessment: # Sepsis most likely due to urological origin She is afebrile and hemodynamically stable, her white blood cell within normal limits. Patient blood culture grow Proteus Mirabilis that sensitive to Augmentin. * She will be discharge on Augmentin 500 twice a day, and will be instructed to finish 9 more days. * She'll be instructed to follow up with primary care doctor within 1 week discharge. # Left ankle fracture - X-rays show a minimally displaced bimalleolar fracture on the left side which is closed. 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 * We will continue current conservative management * She will be instructed to f/u [address] Colvin to repeat films of ankle. * Continue splint and and needs to be convert this over to a cast in the next 5- 7 days. * She must remain nonweightbearing on this left lower extremity for 6 weeks. # Intermittent LBB and wide QRS with positive troponin, most likely due to demand ischemai: Patient was seen by Dr. Antonio for the same finding in 2014. Dynamic EKG changes, could be suggestive of areas of occlusion and reversible ischemia or NSTEMI. ECHO EF > 65% Troponins and EKG was followed * Continue aspirin Diet: heart healthy puree and thin DVT ppx: heparin sc DNR/DNI Problem List: 1. Sepsis Pain Ratin Pain Location: ankle Pain Goal: Remain pain free Pain Plan: see A&P Tomorrow's Labs & Rationales: none, as she will most likely get discharged today
[2016-05-10 08:07] LABS: ABSOLUTE BASOPHIL COUNT 0 /CUMM (0.0-0.2); ABSOLUTE EOSINOPHIL COUNT 0.6 /CUMM (0.0-0.7); ABSOLUTE GRANULOCYTE CT 5.7 /CUMM (1.4-6.5); ABSOLUTE LYMPH COUNT 1.7 /CUMM (1.2-3.4); ABSOLUTE MONOCYTE COUNT 0.6 /CUMM (0.10-0.60); BASOPHIL % 0.6 % (0.0-2.0); EOSINOPHIL % 7.3 % (0-5); GRANULOCYTE % 65.7 % (42.2-75.2); HEMATOCRIT 31.9 % (37-47); MEAN CORPUSCULAR HGB 29.7 PG (27.0-31.0); MEAN CORPUSCULAR HGB CONC 33.1 G/DL (33.0-37.0); MEAN CORPUSCULAR VOLUME 89.6 FL (81.0-99.0); MEAN PLATELET VOLUME 7.7 FL (7.4-10.4); PLATELET COUNT 350 /CUMM (130-400); RBC DISTRIBUTION WIDTH 15.5 % (11.5-14.5); RED BLOOD CELL CT 3.56 /CUMM (4.20-5.40); WHITE BLOOD CELL COUNT 8.8 /CUMM (4.8-10.8)
--- NOTE | 2016-05-10 09:23 | PN- Att Addend ---
Attending Addendum Attending Brief Note Patient this morning is alert and awake. General Appearance: Alert, No Acute Distress Skin: Grossly normal HEENT: PEERLA Neck: Supple, No JVD Cardiovascular: Regular Rate, Normal S1, Normal S2, No Murmurs Lungs: Clear to Auscultation, Normal Air Movement Abdomen: Normal Bowel Sounds, Soft, No Tenderness Neurological: Normal Speech, Strength at 5/5 X4 Ext, Cranial Nerves 3-12 NL, Reflexes 2+ Extremities: No Clubbing, No Cyanosis, No Edema Vascular: Normal Pulses Assessment 81[facility] presented with sepsis of urological origin. Proteus in blood that is pansensitive. We will transition to Augmentin for total 14 days discharge [facility] Plan Augmentin for total 14 days Continue other home meds and supportive care DNI/DNR Stable for [facility] to [facility] on current meds Current Medications Sig/Cecily Start time Last Medication Dose Route Stop Time Status Admin Amoxicillin 500 MG Q8H 05/09 1430 AC 05/10 PO 0521 Aspirin 81 MG DAILY 05/07 1000 AC 05/09 PO 1100 Ceftriaxone Sodium 1,000 MG DAILY 05/10 1000 CAN IV Ceftriaxone Sodium 2,000 MG DAILY 05/07 1000 DC 05/09 IV 1100 Heparin Sodium 5,000 UNIT Q8 05/08 1404 AC 05/10 (Porcine) SC 0518 Methyl Salicylate 1 ADAMARIS Q4 HRS NEEDED PRN 05/07 1415 AC TOP Tramadol HCl 50 MG Q8 05/10 1400 UNVr PO Tramadol HCl 50 MG ONCE ONE 05/10 0415 DC 05/10 PO 05/10 0416 0519 Tramadol HCl 50 MG ONCE ONE 05/09 2230 DC 05/09 PO 05/09 2231 2240 Tramadol HCl 50 MG Q12 05/09 2200 DC 05/09 PO 1716 Laboratory Tests 05/10 0655 Chemistry Sodium (137 - 145 mmol/L) 135 L Potassium (3.5 - 5.1 mmol/L) 4.3 Chloride (98 - 107 mmol/L) 110 H Carbon Dioxide (22 - 30 mmol/L) 21 L Anion Gap (5 - 16) 4 L BUN (7 - 17 mg/dL) 7 Creatinine (0.5 - 1.0 mg/dL) 0.5 Estimated GFR (>60 ml/min) > 60 Glucose (65 - 99 mg/dL) 82 Calcium (8.4 - 10.2 mg/dL) 8.6 Phosphorus (2.5 - 4.5 mg/dL) 1.7 L Magnesium (1.6 - 2.3 mg/dL) 2.0 Total Bilirubin (0.2 - 1.3 mg/dL) 0.4 AST (14 - 36 U/L) 21 ALT (9 - 52 U/L) 33 Albumin (3.5 - 5.0 g/dL) 2.0 L Hematology CBC w Diff NO MAN DIFF REQ WBC (4.8 - 10.8 /CUMM) 8.8 RBC (4.20 - 5.40 /CUMM) 3.56 L Hgb (12.0 - 16.0 G/DL) 10.6 L Hct (37 - 47 %) 31.9 L MCV (81.0 - 99.0 FL) 89.6 MCH (27.0 - 31.0 PG) 29.7 RDW (11.5 - 14.5 %) 15.5 H Plt Count (130 - 400 /CUMM) 350 MPV (7.4 - 10.4 FL) 7.7 Gran % (42.2 - 75.2 %) 65.7 Lymphocytes % (20.5 - 51.1 %) 19.3 L Monocytes % (1.7 - 9.3 %) 7.1 Eosinophils % (0 - 5 %) 7.3 H Basophils % (0.0 - 2.0 %) 0.6 Absolute Granulocytes (1.4 - 6.5 /CUMM) 5.7 Absolute Lymphocytes (1.2 - 3.4 /CUMM) 1.7 Absolute Monocytes (0.10 - 0.60 /CUMM) 0.6 Absolute Eosinophils (0.0 - 0.7 /CUMM) 0.6 Absolute Basophils (0.0 - 0.2 /CUMM) 0 PUBS MCHC (33.0 - 37.0 G/DL) 33.1 Vital Signs Date Time Temp Pulse Resp B/P Pulse O2 O2 Flow FiO2 Ox Delivery Rate 05/10 0727 97.9 95 23 110/68 94 Room Air 05/09 2224 98.9 102 24 142/80 94 Room Air 05/09 1621 96 Nasal 1.0L Cannula 05/09 1600 98.3 90 18 126/70 98 Nasal 2.0L Cannula 05/09 1138 Nasal 2.0L Cannula
[2016-05-10 14:40] VITALS: BP 130/80
--- NOTE | 2016-05-10 14:54 | Discharge Summary ---
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 Initially in the ED, patient was hypotensive around 93/53, MAP of 66 and HR of 123 and RR 18 98% on 2L (not her baseline). Patient received 3.5 of bolous NS and remained hypotensive. A noncontrast CT scan in ER showed nonobstructing left renal calculi and mild interval decrease in the moderate right hydronephrosis. Persistent moderate right hydroureter. # Sepsis most likely due to urological origin, without evidence of end organ damage. -Lactic acid initial 4.8>> 2.1>> 2.6, received IV hydration normal saline at 150ml/hr alongwith strict Is&Os, was started on cefrtiaxone. Blood cultures grew Proteus sensitive to Amoxicillin. No urine sample obtained, Beckman catheter placement was attempted by Dr. Spencer for urine sample (UA,UC), Is and O's monitoring as patient has been incontinent, however unable due to severely distorted vaginal anatomy secondary to radiation therapy for vaginal cancer. No Central lines/pressors given as patient and family denied any agrresive measures. * Switched to Amoxicillin 500mg TID(05/09/16), we will send pt on augmentin 500mg x bid for 10 more days # Left ankle fracture - X-rays show a minimally displaced bimalleolar fracture on the left side which is closed. 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 * short leg cast applied, She must remain nonweightbearing on this left lower extremity for 6 weeks. * Continue current conservative management, patient is a non-ambulator and not surgical candidate * Ortho on board, f/u 8 weeks shawn SALDANA or dr carranza for repeat films of ankle. [phone] * Continue splint and and needs to be convert this over to a cast in the next 5- 7 days. * no weight on left lower extremity # Intermittent LBBB and wide QRS with positive troponin, most likely due to demand ischemai: Patient was seen by Dr. Antonio for the same finding in 2014. Dynamic EKG changes, could be suggestive of areas of occlusion and reversible ischemia or NSTEMI. - ECHO EF > 65% * Troponins and EKG, 0.09>> 0.15>> 0.13 * Continue aspirin * Lisinopril was held- due to hypotension * Cardiology on board, please follow up Diet: heart healthy Complications: none Allergies: Coded Allergies: meperidine (From DEMEROL) (DIARRHEA 05/06/16) Significant Procedures: SERVICE DATE: 05/07/16- EXAM TYPE: RAD - XRY-ANKLE 3 OR MORE VIEWS L EXAMINATION: XR ANKLE, LEFT CLINICAL INFORMATION: 81-year-old woman with ankle pain. COMPARISON: None TECHNIQUE: AP, lateral, and mortise views of the left ankle. FINDINGS: There is severe osteopenia which limits assessment. There appears to be a fracture of the distal tibial metaphysis without definite intra-articular extension. There is also a minimally displaced fracture of the distal fibula metadiaphysis. Overall alignment is approximately anatomic. IMPRESSION: Limited by severe osteopenia. There appear to be minimally displaced distal tibial and fibular fractures. Pertinent Lab Results: FELICIANO SMITH Age: 81 : 1935 Gender: F Exam Date: 05/08/2016 09:52 Exam Location: [facility] Ht (in): 59 Wt (lb): 90 BSA: 1.30 BP: 80 / 50 Ordering Physician: DENICE PERDUE MD Referring Physician: Oscar Fernandez MD Chief, SoC Technologist: Jeanette Franco [facility] Room Number: 112 Indications: ARRHYTHMIAS Rhythm: Sinus Technical Quality: Fair FINDINGS Left Ventricle Normal size left ventricle. Left ventricular wall thickness at upper limits of normal. Normal left ventricular ejection fraction visually estimated at >65 %. No obvious regional wall motion abnormalities. Normal left ventricular diastolic filling pattern for age. Right Ventricle The right ventricle is normal in size and function. Right Atrium The right atrium is normal in size. Left Atrium The left atrium is normal in size. The interatrial septum is intact. Mitral Valve Moderate thickening/calcification of the mitral valve leaflets. Moderate mitral annular calcification. Mild mitral regurgitation. Aortic Valve Diffuse thickening (sclerosis) of the aortic valve cusps without reduced excursion. No aortic stenosis. Mild aortic regurgitation. Tricuspid Valve Tricuspid valve is normal in structure and function. Mild tricuspid regurgitation. Right ventricular systolic pressure estimated to be at upper limits of normal at 35 mmHg. Pulmonic Valve Structurally normal pulmonic valve. There is mild pulmonic regurgitation. Pericardium Normal pericardium without effusion. No pleural effusion. Great Vessels Normal aortic root dimension. The aortic arch and great vessels are well seen and are normal. CONCLUSIONS Left ventricular wall thickness at upper limits of normal. Normal left ventricular ejection fraction visually estimated at >65 The left atrium is normal in size. Moderate thickening/calcification of the mitral valve leaflets. Moderate mitral annular calcification. Mild mitral regurgitation. Diffuse thickening (sclerosis) of the aortic valve cusps without reduced excursion. No aortic stenosis. Mild aortic regurgitation. Right ventricular systolic pressure estimated to be at upper limits of normal at 35 mmHg. Oscar Fernandez M.D. (Electronically Signed) Final Date: 08 May 2016 13:49 MEASUREMENTS (Male / Female) Normal Values 2D ECHO LV Diastolic Diameter PLAX 3.7 cm 4.2 - 5.9 / 3.9 - 5.3 cm LV Systolic Diameter PLAX 2.3 cm 2.1 - 4.0 cm LV Fractional Shortening PLAX 37.8 % 25 - 46 % LV Ejection Fraction 2D Teich 68.8 % IVS Diastolic Thickness 1.1 cm LVPW Diastolic Thickness 1.1 cm LV Relative Wall Thickness 0.6 RV Internal Dim ED PLAX 2.5 cm 1.9 - 3.8 cm LVOT Diameter 2.0 cm Aortic Root Diameter 3.3 cm LA Systolic Diameter LX 3.3 cm 3.0 - 4.0 / 2.7 - 3.8 cm LA Volume 32.0 cm 18 - 58 / 22 - 52 cm Ascending Aorta Diameter 3.1 cm DOPPLER AV Peak Velocity 136.0 cm/s AV Peak Gradient 7.4 mmHg AV Mean Velocity 94.9 cm/s AV Mean Gradient 4.0 mmHg AV Velocity Time Integral 26.0 cm AI Deceleration Kay 91.2 cm/s AI Peak Velocity 299.0 cm/s AI Pressure Half Time 961.0 ms AI Peak Gradient 35.8 mmHg LVOT Peak Velocity 74.4 cm/s LVOT Peak Gradient 2.2 mmHg LVOT Mean Velocity 47.1 cm/s LVOT Mean Gradient 1.0 mmHg LVOT Velocity Time Integral 14.0 cm LVOT Stroke Volume 44.0 cm AV Area Cont Eq vti 1.7 cm AV Area Cont Eq pk 1.7 cm MV Peak Velocity 130.0 cm/s MV Peak Gradient 6.8 mmHg MV Mean Velocity 84.1 cm/s MV Mean Gradient 3.0 mmHg Mitral E Point Velocity 114.0 cm/s Mitral A Point Velocity 122.0 cm/s Mitral E to A Ratio 0.9 MV PHT Velocity 128.0 cm/s MV Deceleration Kay 373.0 cm/s MV Pressure Half Time 102.9 ms MV Area PHT 2.1 cm MV Deceleration Time 251.0 ms TR Peak Velocity 277.0 cm/s TR Peak Gradient 30.7 mmHg Right Atrial Pressure 5.0 mmHg Pulmonary Artery Systolic Pressu 35.7 mmHg Right Ventricular Systolic Press 35.7 mmHg PV Peak Velocity 85.9 cm/s PV Peak Gradient 3.0 mmHg PV Mean Velocity 59.3 cm/s PV Mean Gradient 2.0 mmHg PV Velocity Time Integral 21.9 cm LV E' Lateral Velocity 10.7 cm/s Mitral E to LV E' Lateral Ratio 10.7 LV E' Septal Velocity 4.7 cm/s Disposition Summary Disposition Principal Diagnosis: sepsis of urological origin. Additional Diagnosis: minimally displaced distal tibial and fibular fractures. Discharge Disposition: SNF Discharge Instructions General Discharge Information Code Status: Do Not Resucitate/Intubat Patient's Diet: HEART HEALTHY DIET Patient's Activity: non weight bearing till see ortho Follow-Up Instructions/Appts: please follow up with your PCP within one week of discharge. -f/u 8 weeks shawn SALDANA or dr carranza for -repeat films of ankle. -Continue splint and and needs to be convert this over to a cast in the next 5-7 days. -no weight on left lower extremity for 6 weeks -please continue to take your medications as prescribed. Medications at Discharge Discharge Medications: Continue taking these medications: Aspirin (Children's Aspirin) 81 MG TAB.CHEW 1 Tablet ORAL DAILY Escitalopram Oxalate (Escitalopram Oxalate) 10 MG TABLET 1.5 Tablet ORAL DAILY Lisinopril (Prinivil) 20 MG TABLET 1 Tablet ORAL DAILY Multivitamin (Multiple Vitamins) 1 EACH TABLET 1 Tablet ORAL DAILY Calcium Carbonate/Vitamin D3 (Oyster Shell Calcium +D Tablet) 500 MG-200 TABLET 1 Tablet ORAL DAILY Melatonin (Melatonin) 3 MG TABLET 1 Tablet ORAL Every night as needed for SLEEP Acetaminophen (Mapap Arthritis Pain) 650 MG TABLET.ER 1 Tablet ORAL EVERY 4 HOURS NEEDED as needed for PAIN Loperamide HCl (Loperamide) 2 MG CAPSULE 1 Capsule ORAL EVERY SIX HOURS as needed for LOOSE STOOLS Na Phos,M-B/Na Phos,Di-Ba (Fleet Enema Extra) 19 GRAM-7 GRAM/197 ML ENEMA 1 Enema RECTAL DAILY as needed for CONSTIPATION Dicyclomine HCl (Dicyclomine HCl) 20 MG TABLET 1 Tablet ORAL THREE TIMES DAILY as needed for GI Bisacodyl (Bisac-Evac) 10 MG SUPP.RECT 1 SUPPOSITORY RECTALLY DAILY NEEDED as needed for CONSTIPATION Acetaminophen (Acephen) 650 MG SUPP.RECT 1 Suppository RECTALLY EVERY 4 HOURS NEEDED as needed for PAIN Prochlorperazine (Compazine) 25 MG SUPP.RECT 1 Suppository RECTALLY DAILY as needed for NAUSEA/VOMITING Simethicone (Gas-X) 125 MG CAPSULE 1 Tablet ORAL EVERY 6 HOURS NEEDED as needed for ABDOMINAL PAIN Ondansetron HCl (Zofran) 4 MG TABLET 1 Tablet ORAL EVERY 8 HOURS NEEDED as needed for NAUSEA/VOMITING Naproxen Sodium (Aleve) 220 MG CAPSULE 1 Tablet ORAL TWICE DAILY as needed for PAIN Magnesium Hydroxide (Milk Of Magnesia) 400 MG/5 ML ORAL.SUSP 30 Milliliters ORAL DAILY NEEDED as needed for CONSTIPATION Nitrofurantoin Macrocrystal (Nitrofurantoin) 50 MG CAPSULE 1 Capsule ORAL Every night Omeprazole (Omeprazole) 20 MG CAPSULE.DR 1 Capsule ORAL DAILY Cyanocobalamin (Vitamin B-12) 1,000 MCG TABLET 1 Tablet ORAL DAILY Start taking the following new medications: Augmentin (Augmentin 500-125 Tablet) 500 MG-125 MG TABLET 500 Milligram ORAL EVERY 12 HOURS Days = 10 No Refills Copies To: PRAKASH WRIGHT,TIM Stanford MD Review Statement Documenting Attending: FREDDY OCASIO MD
[2016-05-10 16:35] VITALS: BP 130/80
[2016-05-10] MEDS ORDERED: AUGMENTIN 500-1 EACH PO (17:10)
== END 2016-05-10 17:20 | DRG 872 ==
LOC: ENRESERVTM → ENRESERVDT → ERH 14:43 → ERHI 18:21 → EDBEDREQ 18:37 → ERHI 19:39 → CRI 23:00 → 2NA 05-07 15:30 → CRI 05-07 15:30 → 2NA 05-09 15:13
PROVIDERS: Emergency Medicine; Radiology Diagnostic Radiology; Student in an Organized Health Care Education/Training Program; ADMIT Internal Medicine
PROC: 2W3MX2Z Immobilization of Left Lower Extremity using Cast (ICD-10-PCS; principal; 2016-05-09)
DX: A41.50 Gram-negative sepsis, unspecified (principal); K50.90 Crohn's disease, unspecified, without complications; I24.8 Other forms of acute ischemic heart disease; N13.30 Unspecified hydronephrosis; E87.1 Hypo-osmolality and hyponatremia; M80.072A Age-related osteoporosis with current pathological fracture, left ankle and foot, initial encounter for fracture; N39.0 Urinary tract infection, site not specified; G62.9 Polyneuropathy, unspecified; N20.0 Calculus of kidney; Z87.442 Personal history of urinary calculi; M48.00 Spinal stenosis, site unspecified; I10 Essential (primary) hypertension; M21.372 Foot drop, left foot; M21.371 Foot drop, right foot; Z85.89 Personal history of malignant neoplasm of other organs and systems; Z66 Do not resuscitate
CPT/HCPCS: 2NASP; 84133; 84300; CCU; 36415; 73610-LT; 74176; 82436; 82570; 87040; 87086; 93005; 93010; 93306; 96374; 96375; 99291; J0131; J0696; J1644; J1885; J2765; J3490; J7040

== ENCOUNTER 2016-06-25 01:02 | Inpatient (IN) | payer OTHER, MEDICARE ==
[~2016-06-25] VITALS: Ht 149.9 cm; Wt 54.4 kg
[~2016-06-25 01:02] MED LIST changes: +AUGMENTIN 500-1 EACH PO; +NITROFURANTOIN50 M1 PO; +OMEPRAZOLE20 M2 PO; +VITAMIN B-121000 MC3 PO
--- NOTE | 2016-06-25 01:06 | ED DYSPNEA/ASTHMA COMPLAINT ---
See Addendum History of Present Illness General Chief Complaint: Dyspnea (COPD, CHF, Other) Stated Complaint: "PER EMS LOW SP02" Source: old records, EMS, W10 Exam Limitations: clinical condition Vital Signs & Intake/Output Vital Signs & Intake/Output Vital Signs Date Time Temp Pulse Resp B/P B/P Pulse O2 O2 Flow FiO2 Mean Ox Delivery Rate 06/25 0422 97.0 70 18 81/43 93 Nasal 2.0L Cannula 06/25 0359 78 16 64/39 97 Nasal 2.0L Cannula / 0339 81 16 59/25 96 Nasal 2.0L Cannula / 0318 92 16 66/34 96 Nasal 2.0L Cannula / 0306 82 16 61/33 95 Nasal 2.0L Cannula 06/25 0259 96 16 60/41 95 Nasal 2.0L Cannula / 0250 97 16 53/36 93 Nasal 2.0L Cannula / 0245 100 Nasal 2.0L Cannula / 0238 109 18 62/34 98 Nasal 2.0L Cannula / 0227 98.6 110 18 57/30 95 Room Air / 0104 99.6 129 18 177/102 93 Room Air Allergies Coded Allergies: meperidine (From DEMEROL) (DIARRHEA 05/06/16) Reconcile Medications Acetaminophen (Mapap Arthritis Pain) 650 MG TABLET.ER 1 TAB PO Q4 HRS NEEDED PRN PAIN (Reported) Acetaminophen (Acephen) 650 MG SUPP.RECT 1 SUP SC Q4 HRS NEEDED PRN PAIN ( Reported) Aspirin (Children's Aspirin) 81 MG TAB.CHEW 1 TAB PO DAILY HEART HEALTH ( Reported) Augmentin (Augmentin 500-125 Tablet) 500 MG-125 MG TABLET 500 MG PO Q12 uti please start by giving one tonight and cont' BID for another 9 days. Bisacodyl (Bisac-Evac) 10 MG SUPP.RECT 1 SUPP SC DAILY NEEDED PRN CONSTIPATION (Reported) Calcium Carbonate/Vitamin D3 (Oyster Shell Calcium +D Tablet) 500 MG-200 TABLET 1 TAB PO DAILY SUPPLEMENT (Reported) Cyanocobalamin (Vitamin B-12) 1,000 MCG TABLET 1 TAB PO DAILY SUPPLEMENT ( Reported) Dicyclomine HCl 20 MG TABLET 1 TAB PO TID PRN GI (Reported) Escitalopram Oxalate 10 MG TABLET 1.5 TAB PO DAILY DEPRESSION (Reported) Lisinopril (Prinivil) 20 MG TABLET 1 TAB PO DAILY HTN (Reported) Loperamide HCl (Loperamide) 2 MG CAPSULE 1 CAP PO Q6 PRN LOOSE STOOLS ( Reported) Magnesium Hydroxide (Milk Of Magnesia) 400 MG/5 ML ORAL.SUSP 30 ML PO DAILY NEEDED PRN CONSTIPATION (Reported) Melatonin 3 MG TABLET 1 TAB PO QPM PRN SLEEP (Reported) Multivitamin (Multiple Vitamins) 1 EACH TABLET 1 TAB PO DAILY SUPPLEMENT ( Reported) Na Phos,M-B/Na Phos,Di-Ba (Fleet Enema Extra) 19 GRAM-7 GRAM/197 ML ENEMA 1 E RC DAILY PRN CONSTIPATION (Reported) Naproxen Sodium (Aleve) 220 MG CAPSULE 1 TAB PO BID PRN PAIN (Reported) Nitrofurantoin Macrocrystal (Nitrofurantoin) 50 MG CAPSULE 1 CAP PO QPM ANTIBIOTIC, INFECTION (Reported) Omeprazole 20 MG CAPSULE.DR 1 CAP PO DAILY GI (Reported) Ondansetron HCl (Zofran) 4 MG TABLET 1 TAB PO Q8P PRN NAUSEA/VOMITING ( Reported) Prochlorperazine (Compazine) 25 MG SUPP.RECT 1 SUP SC DAILY PRN NAUSEA/ VOMITING (Reported) Simethicone (Gas-X) 125 MG CAPSULE 1 TAB PO Q6-PRN PRN ABDOMINAL PAIN ( Reported) Triage Nurses Notes Reviewed? yes Onset: Gradual Duration: day(s):, getting worse, waxing and waning Timing: recent history Severity: mild Activities at Onset: none Prior Episodes/Possible Cause: occasional episodes Associated Symptoms: weakness HPI: 81-year-old woman from a [place] presents with increased lethargy. Per the W 10, her O2 sat dropped to 71%. Per the medics, her O2 sat had been stable on 3 L nasal cannula and then mid 90s. The W 10 notes increased lethargy, no trauma. Patient arrives minimally responsive and nonverbal. Past History Travel History Traveled to [place] past 21 day No Medical History Any Pertinent Medical History? 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 SISTER (colon cancer). Hx Contributory? No Review of Systems Review of Systems Constitutional: Reports: no symptoms. EENTM: Reports: no symptoms. Respiratory: Reports: no symptoms. Cardiovascular: Reports: no symptoms. GI: Reports: no symptoms. Genitourinary: Reports: no symptoms. Musculoskeletal: Reports: no symptoms. Skin: Reports: no symptoms. Neurological/Psychological: Reports: no symptoms. Hematologic/Endocrine: Reports: no symptoms. Immunologic/Allergic: Reports: no symptoms. All Other Systems: Reviewed and Negative Physical Exam Physical Exam General Appearance: well developed/nourished, mild distress Head: atraumatic, normal appearance Eyes: Bilateral: normal appearance, PERRL, EOMI. Ears, Nose, Throat: normal pharynx, normal ENT inspection Neck: normal inspection Respiratory: normal breath sounds, chest non-tender Cardiovascular: regular rate/rhythm Gastrointestinal: normal bowel sounds, soft, non-tender Extremities: normal inspection Neurologic/Psych: no motor/sensory deficits, lethargic, minimally responsive to verbal stimuli Skin: intact Comments: gu exam - s/p labiectomy/vaginectomy. no discharge. no sign of infection Core Measures ACS in differential dx? Yes ASA ordered for poss ACS? Yes-ordered Severe Sepsis Present: Yes BC x2: Yes Lactic Acid x2: Yes IV ABX Broad Spectrum: Yes NS/LR Started: Yes Septic Shock Present: Yes BC x2: Yes Lactic Acid: Yes IV ABX Broad Spectrum: Yes Focused Exam Completed: Yes NS/LR 30ml/kg w/in 3hrs: Yes IV Vasopressors started: No (not indicated) Progress Differential Diagnosis: dehydration versus pneumonia versus renal failure versus other Plan of Care: Orders Procedure Date/time Status LACTIC ACID 06/25 0618 Active Admit to inpatient 06/25 0517 Active Patient Data 06/25 0445 Active LACTIC ACID 06/25 0318 Complete BLOOD CULTURE 06/25 0115 Active EKG 05/20 0115 Active Beckman, Insertion/Removal/Asses 06/25 113 Active CULTURE,URINE 06/25 113 Active BLOOD CULTURE 06/25 113 Active URINALYSIS 06/25 113 Active ARTERIAL BLOOD GAS (GEN) 06/26 111 Complete TROPONIN LEVEL 06/26 111 Complete COMPREHENSIVE METABOLIC PANEL 06/26 111 Complete CBC WITHOUT DIFFERENTIAL 06/26 111 Complete Current Medications Sig/Cecily Start time Last Medication Dose Stop Time Status Admin Norepinephrine 4 MG Q24H 06/25 529 UNVr (Levophed Drip) Dextrose/Water 250 ML (Dextrose 5%) Sodium Chloride 500 ML BOLUS ONE 06/25 529 UNVr (Normal Saline 0.9%) 06/25 628 Laboratory Tests 06/25/16326: Lactic Acid 5.1 H 06/25/16326: Anion Gap 19 H, Estimated GFR 11 L, BUN/Creatinine Ratio 13.8, Glucose 57 L, Calcium 8.1 L, Total Bilirubin 0.5, AST 29, ALT 25, Alkaline Phosphatase 212 H , Troponin I 1.29 *H, Total Protein 4.4 L, Albumin 1.9 L, Globulin 2.5, Albumin/Globulin Ratio 0.8 L, CBC w Diff MAN DIFF ORDERED, RBC 3.71 L, MCV 89.0, MCH 29.3, RDW 15.8 H, MPV 7.3 L, Gran % 97.8 H, Lymphocytes % 1.8 L, Monocytes % 0.2 L, Eosinophils % 0.2, Basophils % 0 L, Absolute Granulocytes 24.8 H, Segmented Neutrophils 96 H, Band Neutrophils 2, Absolute Lymphocytes 0.5 L, Lymphocytes 1 L, Monocytes 1 L, Absolute Monocytes 0 L, Absolute Eosinophils 0, Absolute Basophils 0, Platelet Estimate INCREASED, Polychromasia 1+, Hypochromic-Microcytic 1+, Poikilocytosis 1+, Ovalocytes FEW, [place] Cells 1+, PUBS MCHC 32.9 L, Fld Total RBCs Counted 100 06/25/16324: pH 7.35, pCO2 24 L, pO2 90, HCO3 13 L, ABG O2 Sat (Measured) 96.0, P-50 (Temp Corrected) N, Carboxyhemoglobin 0.3 L, O2 Concentration % 2 LPM, Temperature 98.6, O2 Delivery Method N/C, Phlebotomy Draw Site LEFT BRACHIAL Microbiology 06/25 326 BLOOD: Blood Culture - RECD 06/25 0142 BLOOD: Blood Culture - RECD 06/25 0114 URINE ROUT: Urine Culture - ORD Diagnostic Imaging: Viewed by Me: Radiology Read. Discussed w/RAD: Radiology Read. CXR Impression: atalectasis, central line at atrial-caval junction. full report below. Initial ED EKG: sinus tach, no acute changes. Departure Departure Disposition: STILL A PATIENT Condition: Stable Clinical Impression Primary Impression: Acute renal failure Referrals: PRAKASH WRIGHT,TIM Oswald (PCP/Family) Departure Forms: Customer Survey General Discharge Information Comments 06/25/16, 4:50.... gave update to dr. linton. call placed to cards. Admission Note Spoke With: CRYSTAL WRIGHT,EVELIA Frye Documentation of Exam: Documentation of any treatments & extenuating circumstances including Concerns Regarding Discharge (functional status, medication knowledge or non-compliance, living conditions, etc.) that warrant an admission rather than observation: Patient with acute renal failure with increase of her creatinine from 0.6-3.4. Also with an increased lethargy and global weakness. Patient merits IV fluids and electrolyte management. - - - 06/25/16, 4:40 pt dropped her blood pressure... sbp 57.... right IJ central line placed... bp responded to iv fluids - 2.5 liters wide open. Troponin positive 1.29... aspirin ordered... likely supply demand ischemia. will hold off on bblocker/ heparin. vanc/ceftaz given. Procedures Central Line Central Line Lumen: triple Central Line Procedure: Yes: bentadine prep?, sterile drapes applied, sterile dressing applied. Central Line Position: internal jugular (R) Anesthesia: lidocaine 1% CC's of Anesthesia: 3 Complications: none Central Line Post Position: sutured, good blood return, position confirmed w/ CXR Progress: first attempt at right groin unsuccessful. Critical Care Note Critical Care Note Critical Care Time: 30-74 min Comments: pt dropped her blood pressure... sbp 57.... right IJ central line placed... bp responded to iv fluids - 2.5 liters wide open. Troponin positive 1.29... aspirin ordered... likely supply demand ischemia. will hold off on bblocker/ heparin. vanc/ceftaz given.
[2016-06-25 03:36] LABS: ABSOLUTE BASOPHIL COUNT 0 /CUMM (0.0-0.2); ABSOLUTE EOSINOPHIL COUNT 0 /CUMM (0.0-0.7); ABSOLUTE GRANULOCYTE CT 24.8 /CUMM (1.4-6.5); ABSOLUTE LYMPH COUNT 0.5 /CUMM (1.2-3.4); ABSOLUTE MONOCYTE COUNT 0 /CUMM (0.10-0.60); BASOPHIL % 0 % (0.0-2.0); EOSINOPHIL % 0.2 % (0-5); GRANULOCYTE % 97.8 % (42.2-75.2); MEAN CORPUSCULAR HGB 29.3 PG (27.0-31.0); MEAN CORPUSCULAR HGB CONC 32.9 G/DL (33.0-37.0); MEAN PLATELET VOLUME 7.3 FL (7.4-10.4); PLATELET COUNT 427 /CUMM (130-400); RBC DISTRIBUTION WIDTH 15.8 % (11.5-14.5); RED BLOOD CELL CT 3.71 /CUMM (4.20-5.40)
[2016-06-25 03:40] LABS: WHITE BLOOD CELL COUNT 25.4 /CUMM (4.8-10.8)
--- NOTE | 2016-06-25 04:14 | RADIOLOGY REPORT ---
EXAMINATION: XR PORTABLE CHEST CLINICAL INFORMATION: Dyspnea. COMPARISON: Chest x-ray May 06, 2016. TECHNIQUE: Portable frontal view of the chest was obtained. FINDINGS: Markedly low lung volumes. Streaky opacity at the left lung base most likely reflects atelectasis. A right IJ central venous catheter tip terminates at the cavoatrial junction. No focal consolidation, pleural effusion, or pneumothorax. Cardiac silhouette is enlarged and unchanged. No acute osseous findings. IMPRESSION: - Right IJ central venous catheter tip terminates at the cavoatrial junction. There is no pneumothorax. - Low lung volumes and probable left basilar atelectasis.
--- NOTE | 2016-06-25 04:54 | History & Physical ---
NETTE WRIGHT,[facility] 06/25/16 0453: General Information and HPI MD Statement: I have seen and personally examined FELICIANO SMITH and documented this H&P. The patient is a 81 year old F who presented with a patient stated chief complaint of [[facility] Source of Information: family, old records Exam Limitations: unable to give history, confusion, physical impairment History of Present Illness: Patient is a 81 year-old lady with PMH of vaginal cancer s/p radiation and hysterectomy, spinal stenosis, neuropathy and bilateral foot drop and chronically bedridden, right-sided hydronephrosis secondary to nephrolithiasis s /p laser lithotripsy in October 2014, history of recurrent UTIs and chronic vaginitis with a recent admission with sepsis of urologic origin in May 2016 and bladder incontinence who is BIBA from [facility], as she was found lethargic and confused, she also looked 'yellow' as they told the daughter. Patient had SO2 of 71% on 2L NC that went up to 90s% on 3L. Patient had BP of 113/60 with T of 97.4, HR of 71 and RR 20 per the facility records. Upon arrival her BP went down to 72/46, Right IJ CV line was placed and she was given a bolus of 500 cc IV NS, followed by two further boluses of 1000 cc IV NS. Patient is currently started on Levophed. Patient is oriented to time and person but not to place. Does not open the eyes with verbal or tactile stimulation. Appears pale, has cold extremities and is in mild distress. answers questions with 'yes', 'no', and few words including her date of and current year. Peripheral pulses are weak with increased capillary refill (>2 sec) and cold extremities. Patient is admitted to the ICU with hypovolemia and possible sepsis of urologic origin. According to the previous records the patient has persistent moderate right hydrourether with severely distorted vaginal anatomy secondary to radiotherapy for the vaginal cancer. She would need a suprapubic catheter placed per Urology, Dr. Spencer who saw the patient last time in May, however per family's wishes this has been deferred. This morning further discussion was made with the family at bedside who decided to withhold any aggressive measures. Patient is made comfort measures per family's wishes. Allergies/Medications Allergies: Coded Allergies: meperidine (From DEMEROL) (DIARRHEA 05/06/16) Home Med list Acetaminophen (Mapap Arthritis Pain) 650 MG TABLET.ER 1 TAB PO Q4 HRS NEEDED PRN PAIN (Reported) Acetaminophen (Acephen) 650 MG SUPP.RECT 1 SUP IN Q4 HRS NEEDED PRN PAIN ( Reported) Aspirin (Children's Aspirin) 81 MG TAB.CHEW 1 TAB PO DAILY HEART HEALTH ( Reported) Augmentin (Augmentin 500-125 Tablet) 500 MG-125 MG TABLET 500 MG PO Q12 uti please start by giving one tonight and cont' BID for another 9 days. Bisacodyl (Bisac-Evac) 10 MG SUPP.RECT 1 SUPP IN DAILY NEEDED PRN CONSTIPATION (Reported) Calcium Carbonate/Vitamin D3 (Oyster Shell Calcium +D Tablet) 500 MG-200 TABLET 1 TAB PO DAILY SUPPLEMENT (Reported) Cyanocobalamin (Vitamin B-12) 1,000 MCG TABLET 1 TAB PO DAILY SUPPLEMENT ( Reported) Dicyclomine HCl 20 MG TABLET 1 TAB PO TID PRN GI (Reported) Escitalopram Oxalate 10 MG TABLET 1.5 TAB PO DAILY DEPRESSION (Reported) Lisinopril (Prinivil) 20 MG TABLET 1 TAB PO DAILY HTN (Reported) Loperamide HCl (Loperamide) 2 MG CAPSULE 1 CAP PO Q6 PRN LOOSE STOOLS ( Reported) Magnesium Hydroxide (Milk Of Magnesia) 400 MG/5 ML ORAL.SUSP 30 ML PO DAILY NEEDED PRN CONSTIPATION (Reported) Melatonin 3 MG TABLET 1 TAB PO QPM PRN SLEEP (Reported) Multivitamin (Multiple Vitamins) 1 EACH TABLET 1 TAB PO DAILY SUPPLEMENT ( Reported) Na Phos,M-B/Na Phos,Di-Ba (Fleet Enema Extra) 19 GRAM-7 GRAM/197 ML ENEMA 1 E RC DAILY PRN CONSTIPATION (Reported) Naproxen Sodium (Aleve) 220 MG CAPSULE 1 TAB PO BID PRN PAIN (Reported) Nitrofurantoin Macrocrystal (Nitrofurantoin) 50 MG CAPSULE 1 CAP PO QPM ANTIBIOTIC, INFECTION (Reported) Omeprazole 20 MG CAPSULE.DR 1 CAP PO DAILY GI (Reported) Ondansetron HCl (Zofran) 4 MG TABLET 1 TAB PO Q8P PRN NAUSEA/VOMITING ( Reported) Prochlorperazine (Compazine) 25 MG SUPP.RECT 1 SUP IN DAILY PRN NAUSEA/ VOMITING (Reported) Simethicone (Gas-X) 125 MG CAPSULE 1 TAB PO Q6-PRN PRN ABDOMINAL PAIN ( Reported) Past History Travel History Traveled to [place] past 21 day No Medical History Neurological: NEUROPATHY CONFUSION EENT: cataracts, new right hydronephrosis Cardiovascular: hypertension Respiratory: NONE Gastrointestinal: colitis, Crohn's disease Hepatic: NONE Renal: NONE Musculoskeletal: spinal stenosis, FOOT DROP Psychiatric: anxiety, depression Endocrine: NONE Blood Disorders: NONE Cancer(s): VAGINAL CA s/p radiation and hysterectomy 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 SISTER (colon cancer). Psychosocial History Who Do You Live With? self Services at Home: Home Health Aide, Nursing Primary Language: Albanian Living Will? yes Power of Cook Apprentice Pastry/HCP? her daughter Functional Ability ADLs Needs Assist: dressing, eating, toileting, bathing. Ambulation: wheelchair-bound IADLs Needs Assist: shopping, housework, finances, food prep, telephone, transportation, medication admin. Review of Systems Review of Systems Constitutional: Reports: see HPI. EENTM: Reports: no symptoms (not able to obtain). Cardiovascular: Reports: see HPI (not reported by the facility). Respiratory: Reports: no symptoms (not reported by the facility). GI: Reports: no symptoms. Genitourinary: Reports: hesitation. Musculoskeletal: Reports: no symptoms (not reported). Skin: Reports: see HPI (pale/yellowish skin). Neurological/Psychological: Reports: confusion. Hematologic/Endocrine: Denies: see HPI. Exam & Diagnostic Data Last 24 Hrs of Vital Signs/I&O Vital Signs Date Time Temp Pulse Resp B/P B/P Pulse O2 O2 Flow FiO2 Mean Ox Delivery Rate 06/25 0543 76 18 103/55 97 Nasal 2.0L Cannula 06/25 0630 85 18 106/68 97 Nasal 2.0L Cannula 06/25 0619 82 18 114/70 97 Nasal 2.0L Cannula 06/25 0610 97.0 77 18 74/51 95 Nasal 2.0L Cannula 05/20 0555 97.0 79 18 71/51 06/25 0555 79 18 71/51 93 Nasal 2.0L Cannula 06/25 0530 76 18 72/46 97 Nasal 2.0L Cannula 06/25 0422 97.0 70 18 81/43 93 Nasal 2.0L Cannula 06/25 0359 78 16 64/39 97 Nasal 2.0L Cannula 06/25 0339 81 16 59/25 96 Nasal 2.0L Cannula 06/25 0318 92 16 66/34 96 Nasal 2.0L Cannula 06/25 0306 82 16 61/33 95 Nasal 2.0L Cannula 06/25 0259 96 16 60/41 95 Nasal 2.0L Cannula 06/25 0250 97 16 53/36 93 Nasal 2.0L Cannula 06/25 0245 100 Nasal 2.0L Cannula 06/25 0238 109 18 62/34 98 Nasal 2.0L Cannula 06/25 0227 98.6 110 18 57/30 95 Room Air 06/25 0104 99.6 129 18 177/102 93 Room Air Intake & Output 06/25 0800 06/25 0000 06/24 1600 Intake Total 3250 Output Total Balance 3250 Intake, IV 3250 Number 1 Bowel Movements Physical Exam General Appearance Mild Distress, oriented x2 (time and person) Skin pale skin, cold in periphery Skin Temp/Moisture Exam: Cool/Dry Sepsis Skin Exam (color): Pale HEENT Atraumatic, PERRLA, Mucous Membr. moist/pink, dry mucous membranes. keeps eyes closed, does not follow direction for EMO exam Neck Supple Cardiovascular Regular Rate, Normal S1, Normal S2, No Murmurs Lungs examined form the front, clear exam Abdomen Soft, mild generalized tenderness deep palpation of the abdomen Neurological mumbling when speaking, saying few words, and mostly 'yes' and 'No' Extremities 2+ pitting edema on the left lower ext, left LE is in cast. Vascular Pulses Symmetrical Sepsis Peripheral Pulse Location: Posterior Tibialis Sepsis Peripheral Pulse Exam: Weak Sepsis Cap Refill Exam: >2 sec Last 24 Hrs of Labs/Colby: Laboratory Tests 06/25/16 0630: Lactic Acid Pending 06/25/16 0630: Sodium Pending, Potassium Pending, Chloride Pending, Carbon Dioxide Pending, Anion Gap Pending, BUN Pending, Creatinine Pending, Glucose Pending, Calcium Pending, Phosphorus Pending, Magnesium Pending, Total Bilirubin Pending, AST Pending, ALT Pending, Albumin Pending, PT Pending, INR Pending, CBC w Diff Pending, WBC Pending, RBC Pending, Hgb Pending, Hct Pending, MCV Pending, MCH Pending, RDW Pending, Plt Count Pending, MPV Pending, Gran % Pending, Lymphocytes % Pending, Monocytes % Pending, Eosinophils % Pending, Basophils % Pending, Absolute Granulocytes Pending, Absolute Lymphocytes Pending, Absolute Monocytes Pending, Absolute Eosinophils Pending, Absolute Basophils Pending, PUBS MCHC Pending 06/25/16 032: Lactic Acid 5.1 H 06/25/16326: Anion Gap 19 H, Estimated GFR 11 L, BUN/Creatinine Ratio 13.8, Glucose 57 L, Calcium 8.1 L, Total Bilirubin 0.5, AST 29, ALT 25, Alkaline Phosphatase 212 H , Troponin I 1.29 *H, Total Protein 4.4 L, Albumin 1.9 L, Globulin 2.5, Albumin/Globulin Ratio 0.8 L, CBC w Diff MAN DIFF ORDERED, RBC 3.71 L, MCV 89.0, MCH 29.3, RDW 15.8 H, MPV 7.3 L, Gran % 97.8 H, Lymphocytes % 1.8 L, Monocytes % 0.2 L, Eosinophils % 0.2, Basophils % 0 L, Absolute Granulocytes 24.8 H, Segmented Neutrophils 96 H, Band Neutrophils 2, Absolute Lymphocytes 0.5 L, Lymphocytes 1 L, Monocytes 1 L, Absolute Monocytes 0 L, Absolute Eosinophils 0, Absolute Basophils 0, Platelet Estimate INCREASED, Polychromasia 1+, Hypochromic-Microcytic 1+, Poikilocytosis 1+, Ovalocytes FEW, Grubbs Cells 1+, PUBS MCHC 32.9 L, Fld Total RBCs Counted 100 06/25/16 0325: pH 7.35, pCO2 24 L, pO2 90, HCO3 13 L, ABG O2 Sat (Measured) 96.0, P-50 (Temp Corrected) N, Carboxyhemoglobin 0.3 L, O2 Concentration % 2 LPM, Temperature 98.6, O2 Delivery Method N/C, Phlebotomy Draw Site LEFT BRACHIAL Microbiology 06/25 326 BLOOD: Blood Culture - RECD 06/25 141 BLOOD: Blood Culture - RECD 06/25 0114 URINE ROUT: Urine Culture - COLB Assessment/Plan Assessment: Patient is a 81 year-old lady with PMH of vaginal cancer s/p radiation and hysterectomy, spinal stenosis, neuropathy and bilateral foot drop and chronically bedridden, right-sided hydronephrosis secondary to nephrolithiasis s /p laser lithotripsy in October 2014, history of recurrent UTIs and chronic vaginitis with a recent admission with sepsis of urologic origin in May 2016 and bladder incontinence who is BIBA from [facility], as she was found lethargic and confused with hypoxemia and low blood pressure. Problem list and plan: Respiratory Patient is currently saturating at 96% in RA. She does not appear in respiratory stress. CXR shows left basilar atelectasis. ID Septic shock with sepsis of urologic origin: WBC elevated to 25.4 on arrival, increased further up to 39.6 this am, and HR of 120s on arrival (max temp of 99.6 on arrival). Most likely source is urinary tract due to the previous history, although urine sample was not obtained as the patient is hard to catheterize. she has history if nephrolithiasis recurrent and persistent hydroureter and recurrent UTIs. 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 Central line was placed, received IV fluids and started on Levophed. BP went up to 114/70 on maximum dose of levophed. Patient also was found to have elevated troponin of 1.29. 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 Heme H/H of 10.9/33.0 stable. no evidence of bleeding noted. Metabolic Elevated anion gap metabolic acidosis with HCO3 of 16 and AG of 17 which improved to 12 upon hydration. Patient is also found to have SISSY, which slightly improved upon hydration. 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 Alimentary NPO due to altered mentation and risk of aspiration. Neurological Not alert, lethargic with orientation to time and person but not place. Not able to follow all commands including cranial nerve exams and forces of the extremities. She opened her mouth and moved her tongue but did not obey the rest , patient does not move upper and lower extremities. Skin End extremities are cold to touch. Code status: Comfort measures only. As Ranked By This Provider Problem List: 1. Lethargy 2. VAGINAL CANCER 1981 3. Acute renal failure 4. Renal calculi 5. Hyponatremia 6. Hydronephrosis, right 7. Shock Core Measures/Miscellaneous Acute Coronary Syndrome ACS Diagnosis: No Cerebrovascular Accident CVA/TIA Diagnosis: No Congestive Heart Failure CHF Diagnosis: No Venous Thromboembolism VTE Risk Factors: Acute medical illness, Age > 40 No [facility] VTE prophylaxis d/t: VTE low risk, No contraindications No VTE Pharm Prophylaxis d/t: VTE low risk, No contraindications VTE Diagnosis: No VTE Type: NONE VTE Confirmed by (Test): NONE Severe Sepsis Severe Sepsis Present: Yes BC x2: Yes Lactic Acid x2: Yes IV ABX Broad Spectrum: Yes NS/LR Started: Yes Septic Shock Septic Shock Present: Yes BC x2: Yes Lactic Acid: Yes IV ABX Broad Spectrum: Yes Focused Exam Completed: Yes NS/LR 30ml/kg w/in 3hrs: Yes IV Vasopressors started: No Miscellaneous Documentation Attending Case Discussed With: TIM RANDALL MD Primary Care Physician: TIM RANDALL MD Patient sees these Specialists Dr. Garrido, Dr. Antonio, Dr. Casiano Level of Patient Care: Critical Care (CRI) DYAN JOSHUA 06/25/16 0657: Resident Review Statement Resident Statement: examined this patient, discussed with internal control consultant, agreed with internal control consultant, discussed with family, reviewed EMR data (avail), discussed with nursing , reviewed images Other Findings: Mrs Smith is an 81-year-old lady who resides at [place] with a PMH of hypertension, right-sided hydronephrosis secondary to nephrolithiasis s/p lithotripsy 2014, spinal stenosis, neuropathy with bilateral foot drop, chronically bedridden, vaginal carcinoma s/p radiation and chemotherapy, history of recurrent UTIs and chronic vaginitis, left ankle fracture with displaced bimalleolar fracture currently in a short-leg cast for 6 weeks with planned follow-up with Dr. Colvin ([phone]) -nonweightbearing to left lower extremity for 6 weeks who was BIBA from [place] for increased lethargy, confusion and pale skin. Patient was last admitted to [place] on 05/07/16 and treated for sepsis of urologic origin, bacteremia with Proteus pansensitive at the time. Information obtained indicates that she was noted to be more confused and had pale skin prompting nursing staff to call EMS. On arrival in the ED patient became hypotensive requiring TLC placement and initiation of IV pressors after driller's assistant hypotension despite crystalloid resuscitation. On assessment she is arousable to verbal commands, can state her name and birthday. She denied any fever, chills, chest pain, palpitations, shortness of breath, nausea or abdominal pain. VS on admission: BP 177/102, HR 129, RR 18, SPO2 93% on 2L, T 99.6 PE on admission: Patient is laying in bed responsive to verbal commands. Skin appears pale, dry mucous membranes. Conjunctivae were slightly pale. Pupils reactive to light. RRR, normal S1/S2 with distant heart sounds. Diminished breath sounds in the basilar regions. Normal bowel sounds and no tenderness to palpation. LLE with short cast in place. No evidence of swelling in the left lower extremity. Footdrop appreciated in the right foot. Delayed capillary refill. Pertinent labs: WBC 25.4, 2% bandemia, H&H 10.9/33.0, platelets 427, sodium 127, potassium 4.1, chloride 94, bicarbonate 14, BUN/CR 55/4.0, glucose 57 Lactic acid: 5.1 Troponin: 1.29 Calcium 8.1, albumin 1.9 AB.35/20/90/13 CXR: Right IJ central venous catheter tip terminates in the cavoatrial junction. No pneumothorax. Low lung volumes and probable left basilar atelectasis Problem List: 1. Septic shock 2. Acute kidney injury 3. Elevated troponins 4. Hyponatremia 5. Anemia 6. Thrombocytosis 7. Hypoglycemia 8. Left ankle fracture Plan: * Admit to ICU for septic shock * We'll start the patient on Levophed and titrate for SBP above 110, map greater than 65 * Fluid resuscitation with NS @ 100ml/hr and monitor urine output * Antibiotic coverage with vancomycin and ceftaz for possible sepsis likely due to urologic origin * Follow-up cultures and adjust sensitivities accordingly * Monitor urine output with BEP Q12 * Serial troponins to rule out ACS * Hypoglycemia: D5 normal saline and Accu-Cheks Q2hrs for the next 12hrs * Left ankle fracture: We'll consult with orthopedics for possibility to remove cast UPDATE: * After extensive discussion with the family, the decision has been made to transition her to comfort measures. At this time we will discontinue pressor support with Levophed, discontinue antibiotics and IV fluids. We'll start Ativan for anxiety/agitation, morphine for respiratory distress EVELIA ROJAS MD 06/25/16 1443: Attending MD Review Statement Attending Statement Attending MD Statement: examined this patient, discuss w/resident/PA/DIRECTOR EXPERIMENTAL MEDICINE, agreed w/resident/PA/DIRECTOR EXPERIMENTAL MEDICINE, discussed with family, reviewed EMR data (avail), discussed with nursing, amended to note Attending Assessment/Plan: Mrs. Smith is an 81-year-old female with multiple comorbidities who presented to the ED with lethargy which was found to be secondary to sepsis of presumed urological origin. Discussion of her prognosis was again undertaken with her family and they have continued in the decision that she should be comfort measures only.
[2016-06-25 06:43] LABS: ABSOLUTE BASOPHIL COUNT 0 /CUMM (0.0-0.2); ABSOLUTE EOSINOPHIL COUNT 0 /CUMM (0.0-0.7); ABSOLUTE GRANULOCYTE CT 38.6 /CUMM (1.4-6.5); ABSOLUTE LYMPH COUNT 0.7 /CUMM (1.2-3.4); ABSOLUTE MONOCYTE COUNT 0.2 /CUMM (0.10-0.60); BASOPHIL % 0 % (0.0-2.0); EOSINOPHIL % 0.1 % (0-5); GRANULOCYTE % 97.5 % (42.2-75.2); HEMATOCRIT 30.8 % (37-47); MEAN CORPUSCULAR HGB 29.4 PG (27.0-31.0); MEAN CORPUSCULAR HGB CONC 32.8 G/DL (33.0-37.0); MEAN CORPUSCULAR VOLUME 89.7 FL (81.0-99.0); MEAN PLATELET VOLUME 7.4 FL (7.4-10.4); PLATELET COUNT 420 /CUMM (130-400); RBC DISTRIBUTION WIDTH 15.9 % (11.5-14.5); RED BLOOD CELL CT 3.43 /CUMM (4.20-5.40)
[2016-06-25 06:51] LABS: PT 15.2 SEC (9.4-12.5)
[2016-06-25 06:58] LABS: WHITE BLOOD CELL COUNT 39.6 /CUMM (4.8-10.8)
--- NOTE | 2016-06-25 08:30 | Event Note ---
Event Note Event Note: A detailed discussion was held with the patient's daughter Mirella, Dr. Perico Ceron and myself. We discussed in depth regarding Mrs. Carpenter's guarded prognosis. She continues to be hypotensive despite being on levophed. The daughter who is the power of senior trial attorney decided that she would like her mother's CODE STATUS changed to comfort measures only. They would like all pressors, IV fluids stopped. Also no antibiotics, no blood draws. Patient's CODE STATUS in the EMR has been changed to comfort measures only. All medications have been discontinued.
[2016-06-25 10:40] VITALS: BP 67/38
[2016-06-25 15:58] VITALS: BP 80/40
[2016-06-25 22:53] VITALS: BP 93/42
[2016-06-26 06:48] VITALS: BP 63/36
--- NOTE | 2016-06-26 08:23 | PN- Housestaff ---
See Addendum Subjective Follow-up For: Septic shock Comfort measures Subjective: Patient is sleeping comfortably on the bed Review of Systems Constitutional: Reports: see HPI. Comments: ROS cannot be appreciated as per the patient condition Objective Last 24 Hrs of Vital Signs/I&O Vital Signs Date Time Temp Pulse Resp B/P B/P Pulse O2 O2 Flow FiO2 Mean Ox Delivery Rate 06/26 0648 97.0 72 14 63/36 97 Nasal 1.5L Cannula 06/26 0000 Nasal 2.0L Cannula 06/25 2253 97.1 80 20 93/42 96 Nasal 1.0L Cannula 06/25 1627 Nasal 2.0L Cannula 06/25 1600 Nasal 2.0L Cannula 06/25 1558 97.6 85 20 80/40 94 06/25 1040 92 Nasal 2.0L Cannula 06/25 1040 97.5 72 16 67/38 92 Nasal 2.0L Cannula 06/25 1021 75 77/50 06/25 0944 64 53/34 06/25 0913 71 50/31 06/25 0903 68 61/33 06/25 0900 69 61/33 06/25 0855 74 63/33 Intake & Output 06/26 1600 06/26 0800 06/26 0000 Intake Total Output Total Balance Number 1 Bowel Movements Patient 90.718 kg Weight Physical Exam General Appearance: Alert Other Physical Findings: Cannot be appreciate as per her condition Current Medications: Current Medications Sig/Cecily Start time Last Medication Dose Route Stop Time Status Admin Acetaminophen 650 MG Q6P PRN 06/25 0630 DC PO Aspirin 81 MG DAILY 06/25 1000 CAN PO Ceftazidime 1,000 MG IQ8 06/25 0800 DC IV Dextrose/Sodium 1,000 ML Q10H 06/25 0615 DC 06/25 Chloride IV 0619 Dicyclomine HCl 20 MG TIDPRN PRN 06/25 0645 DC PO Escitalopram Oxalate 15 MG DAILY 06/25 1000 CAN PO Heparin Sodium 5,000 UNIT Q8 06/25 1400 CAN (Porcine) SC Lorazepam 0.5 MG Q4P PRN 06/25 0845 AC IV Morphine Sulfate 1 MG Q4P PRN 06/25 0845 AC 06/25 IV 1741 Norepinephrine 4 MG Q24H 06/25 0530 DC 06/25 Dextrose/Water 250 ML IV 0555 Omeprazole 20 MG DAILY AC 06/26 0700 CAN PO Oxycodone/ 1 TAB Q6P PRN 06/25 0630 DC Acetaminophen PO Oxycodone/ 2 TAB Q6P PRN 06/25 0630 DC Acetaminophen PO Scopolamine HBr 1 PAT Q72H 06/25 0845 AC 06/25 TOP 0854 Vancomycin HCl 1,000 MG DAILY 06/25 1000 CAN Sodium Chloride 250 ML IV Last 24 Hrs of Lab/Colby Results Last 24 Hrs of Labs/Mics: Laboratory Tests 06/25/16 1230: Troponin I Cancelled Assessment/Plan Assessment: Patient is a 81 YO F with multiple medical conditions admitted with severe septic shock - presumably urological origin. She was initially admitted to ICU requiring pressors. However after discussing goals of care - she was made comfort and transfered to general medicine floor on 06/25/16. She is on scopolamine patch Q72hrs, morphine 1mg Q4PRN, Lorazepam 0.5mg Q4PRN IV. She will be evaluated for hospice tomorrow. Problem List: 1. Comfort measures only status 2. Shock 3. Fever Pain Ratin Pain Location: n/a Pain Goal: Pain 4 or less Pain Plan: morphine 1mg Q4PRN Tomorrow's Labs & Rationales: none
[2016-06-26 15:32] VITALS: BP 69/34
[2016-06-26 22:36] VITALS: BP 91/49
[2016-06-27 06:51] VITALS: BP 74/54
--- NOTE | 2016-06-27 07:05 | PN- Housestaff ---
Subjective Follow-up For: SEPSIS OF UROLOGICAL ORIGIN HOSPICE EVALUATION Subjective: I saw the patient today morning She is doing Review of Systems Constitutional: Reports: see HPI. Objective Last 24 Hrs of Vital Signs/I&O Vital Signs Date Time Temp Pulse Resp B/P B/P Pulse O2 O2 Flow FiO2 Mean Ox Delivery Rate 06/27 0651 98.0 85 16 74/54 95 Nasal 2.0L Cannula 06/27 0000 Nasal 2.0L Cannula 06/26 2236 97.7 76 18 91/49 93 Nasal Cannula 06/26 1600 Nasal 2.0L Cannula 06/26 1532 97.5 88 18 69/34 96 06/26 0800 Nasal 2.0L Cannula Intake & Output 06/27 0800 06/27 0000 06/26 1600 Intake Total 30 Output Total Balance 30 Intake, IV 30 Number 1 Bowel Movements Physical Exam General Appearance: Alert Current Medications: Current Medications Sig/Cecily Start time Last Medication Dose Route Stop Time Status Admin Lorazepam 0.5 MG Q4P PRN 06/25 0845 AC IV Morphine Sulfate 1 MG Q4P PRN 06/25 0845 AC 06/25 IV 1741 Scopolamine HBr 1 PAT Q72H 06/25 0845 AC 06/25 TOP 0854 Assessment/Plan Assessment: Patient is a 81 YO F with multiple medical conditions admitted with severe septic shock - urological origin. She was initially admitted to ICU requiring pressors. However after discussing goals of care - she was made comfort and transfered to general medicine floor on 06/25/16. She is on scopolamine patch Q72hrs, morphine 1mg Q4PRN, Lorazepam 0.5mg Q4PRN IV. SHE IS MADE HOSPICE TODAY. Problem List: 1. Comfort measures only status 2. Shock Pain Ratin Pain Location: N/A Pain Goal: Pain 4 or less Pain Plan: MORPHINE Tomorrow's Labs & Rationales: NONE
--- NOTE | 2016-06-27 09:48 | Admission Certification ---
Admission Certification Certification Statement - As attending physician, I certify that at the time of - admission, based on clinical presentation, severity of - symptoms, need for further diagnostic testing and - therapeutic interventions, and risk of adverse outcomes - without in-hospital treatment, in my clinical assessment, - this patient requires an acute hospital stay for a minimum - of two nights or longer. I have also considered psychsocial - factors such as support system, advanced age, financial - issues, cognitive issues, and failed out-patient treatments, - past re-admission history, safety of patient, and lack of - compliance as applicable. Specific rationale supporting this admission is: Septic shock
--- NOTE | 2016-06-27 09:54 | PN- Att Addend ---
Attending Addendum Attending Brief Note Patient denies any discomfort on evaluation this morning General Appearance: Lethargic, No Acute Distress Cardiovascular: Regular Rate, Normal S1, Normal S2, No Murmurs Lungs: Clear to Auscultation, Normal Air Movement Abdomen: Normal Bowel Sounds, Soft, No Tenderness Assessment 81-year-old residential resident with multiple comorbidities now presenting with what appears as urosepsis with septic shock. She had multiple end organ failure requiring ICU, pressors initially and after discussion with the family decision was made to pursue comfort measures. Patient on evaluation this morning appears in no distress or pain. Plan Increase morphine to 3 mg every hr as needed Increase Ativan to 1 mg every hour as needed for anxiety Hospice evaluation Current Medications Sig/Cecily Start time Last Medication Dose Route Stop Time Status Admin Lorazepam 0.5 MG Q4P PRN 06/25 0845 AC IV Morphine Sulfate 1 MG Q4P PRN 06/25 0845 AC 06/25 IV 1741 Scopolamine HBr 1 PAT Q72H 06/25 0845 AC 06/25 TOP 0854 Vital Signs Date Time Temp Pulse Resp B/P B/P Pulse O2 O2 Flow FiO2 Mean Ox Delivery Rate 06/27 0651 98.0 85 16 74/54 95 Nasal 2.0L Cannula 06/27 0000 Nasal 2.0L Cannula 06/26 2236 97.7 76 18 91/49 93 Nasal Cannula 06/26 1600 Nasal 2.0L Cannula 06/26 1532 97.5 88 18 69/34 96
--- NOTE | 2016-07-13 13:51 | Discharge Summary ---
Visit Information Visit Dates Admission Date: 06/25/16 Discharge Date: 06/27/16 Hospital Course Course Attending Physician: FREDDY OCASIO MD Primary Care Physician: TIM RANDALL MD Hospital Course: 81-year-old care home resident with multiple comorbidities now presenting with what appears as urosepsis with septic shock. She had multiple end organ failure requiring ICU, pressors initially and after discussion with the family decision was made to pursue comfort measures. Allergies: Coded Allergies: meperidine (From DEMEROL) (DIARRHEA 05/06/16) Disposition Summary Disposition Principal Diagnosis: septic shock Additional Diagnosis: multiorgan failure Discharge Disposition: hospice - medical facilit Discharge Instructions General Discharge Information Code Status: Hospice Patient's Diet: comfort feeds Patient's Activity: as tolerated Follow-Up Instructions/Appts: further management as per hospice team Copies To: TIM RANDALL MD Attending MD Review Statement Documenting Attending: FREDDY OCASIO MD
== END 2016-06-27 13:56 | disposition hospice, home (50) | DRG 871 ==
LOC: ERH 01:02 → ERHI 05:17 → 2NA 05:17 → EDBEDREQ 08:47 → EDBEDREQTM 08:48 → ENRESERV 08:49 → ERHI 08:49 → ENTRNSPT 09:53 → EDTRNSPTTYP 10:32 → EDTRNSPT 10:39 → EDTRNSPTTYP 10:39 → 2NA 10:40 → CMPTRNSPT 11:45 → 2NA 06-27 13:56
PROVIDERS: Internal Medicine; Pediatrics; ADMIT Internal Medicine
PROC: 02HV33Z Insertion of Infusion Device into Superior Vena Cava, Percutaneous Approach (ICD-10-PCS; principal; 2016-06-25)
DX: A41.9 Sepsis, unspecified organism (principal); R65.21 Severe sepsis with septic shock; N17.9 Acute kidney failure, unspecified; E87.2 Acidosis; Z51.5 Encounter for palliative care; K50.90 Crohn's disease, unspecified, without complications; N13.30 Unspecified hydronephrosis; G62.9 Polyneuropathy, unspecified; D64.9 Anemia, unspecified; E87.1 Hypo-osmolality and hyponatremia; I10 Essential (primary) hypertension; Z85.89 Personal history of malignant neoplasm of other organs and systems; S82.892D Other fracture of left lower leg, subsequent encounter for closed fracture with routine healing; X58.XXXD Exposure to other specified factors, subsequent encounter; E16.2 Hypoglycemia, unspecified
CPT/HCPCS: 2NAP; 36415; 82436; 87040; 87086; 93005; 93010; 96374; 96375; J0713; J1644; J3370; J3490; J7040; J7042

== ENCOUNTER 2016-06-27 13:57 | Inpatient (IN) | payer OTHER ==
--- NOTE | 2016-06-27 14:22 | NUR ---
1415: PT ADMITTED TO [facility], ADMITTED WITH SEPTIC SHOCH, PT DROWSY, AROUSABLE, DENIES PAIN, TLC TO RIJ, O2 IN PLACE AT 2 LITERS VIA N/C, BUTTOCKS/BACK RED,SIZEWISE BED ORDERED, FAMILY AT BEDSIDE
[2016-06-27 15:00] VITALS: BP 88/54
--- NOTE | 2016-06-27 15:16 | History & Physical ---
General Information and HPI Chief Complaint: Admit to hospice Source of Information: patient, family, old records Exam Limitations: poor historian Associated Symptoms: fatigue History of Present Illness: Mrs Carpenter is an 81-year-old lady who resides at [facility] with a PMH of hypertension, right-sided hydronephrosis secondary to nephrolithiasis s/p lithotripsy 2014, spinal stenosis, neuropathy with bilateral foot drop, chronically bedridden, vaginal carcinoma s/p radiation and chemotherapy, history of recurrent UTIs and chronic vaginitis, left ankle fracture with displaced bimalleolar fracture currently in a short-leg cast for 6 weeks with planned follow-up with Dr. Colvin ([phone]) -nonweightbearing to left lower extremity for 6 weeks who was BIBA from [facility] for increased lethargy, confusion and pale skin. Patient was last admitted to [facility] on 05/07/16 and treated for sepsis of urologic origin, bacteremia with Proteus pansensitive at the time. On arrival in the ED patient became hypotensive requiring TLC placement and initiation of IV pressors. She remained hypotension and family felt further aggressive therapy would not be in line with pt's previously known wishes. Her code status was switched to comfort care and today family is in agreement with hospice care. Pt remains hypotensive, is intermittently lethargic and alert, able at times to answer simple questions, has taken few bites/sips of food and fluids. She denies pain or dificulty with breathing, has fatigue. Earlier she had abdomiinal pain that resolved with IV morphine. 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 Was living at [facility]. Functional Ability: Dependant for ADLs/IADLs Review of Systems Review of Systems Constitutional: Reports: see HPI. Exam & Diagnostic Data Last 24 Hrs of Vital Signs/I&O T-98, HR-85, RR-16, BP-74/54, o2 sat 95% on 2lnp Physical Exam General Appearance Alert, No Acute Distress Skin No Rashes, No Breakdown HEENT Atraumatic, Mucous Membr. moist/pink Neck right IJ triple lumen Cardiovascular Regular Rate, Normal S1, Normal S2, No Murmurs Lungs Clear to Auscultation Abdomen Soft, No Tenderness Neurological able to answer in one word response followed by gibberish, bilat. footdrop Extremities No Clubbing, No Cyanosis, No Edema, bilat. footdrop, left ankle cast on Last 24 Hrs of Labs/Colby: WBC 39.6 on 06/25/16. Chemistries with Na 126, Bun 47, cr 3.2, Gfr 14, lactic acid 2.8, Ua and urine cx not obtained Blood cx positive for klebsiella pneumoniae and providencia Diagnostic Data CXR Results 06/25/16: IMPRESSION: - Right IJ central venous catheter tip terminates at the cavoatrial junction. There is no pneumothorax. - Low lung volumes and probable left basilar atelectasis. Assessment/Plan Assessment: Mrs Carpenter is an 81-year-old female with a PMH of hypertension, right-sided hydronephrosis secondary to nephrolithiasis s/p lithotripsy 2014, vaginal carcinoma s/p radiation and chemotherapy, history of recurrent UTIs and chronic vaginitis, left ankle fracture with displaced bimalleolar fracture currently with septic shock of presumed urologic origin, multi-organ failure, being admitted to hospice today. Plan: Continue scopolamine patch Morphine 1mg IV every 2 hrs as needed for pain, dyspnea Ativan 1mg IV every 4 hours as needed for anxiety Robinul 400mcg IV every 4 hrs as needed for secretions Compazine 10mg IV every 4 hrs as needed for nausea/vomiting Ortho consult placed earlier for removal of LLE cast at bedside, currently pending.
[2016-06-27 22:56] VITALS: BP 70/50
[2016-06-28 06:44] VITALS: BP 89/33
--- NOTE | 2016-06-28 08:30 | NUR ---
0830: PT GRIMICING, MORPHINE GIVEN FOR PAIN ORDERED, NO RESP DISTRESS NOTED, FAMILY AT BEDSIDE, PLAN OF CARE AND MEDS REVIEWED, THEY VERBALIZE UNDERSTANDING
--- NOTE | 2016-06-28 09:51 | PN- Att Addend ---
Attending Addendum Attending Brief Note Patient appears to be in some distress from secretions. She is unable to express any symptoms. Plan to increase the frequency and dose of her morphine and Ativan. We'll increase scopolamine patches to #2. Continue other supportive care.
--- NOTE | 2016-06-28 14:34 | PN- Hospice ---
Subjective Subjective: Pt. sleeping comfortably, family at bedside. Received morphine 1mg this morning with good effect for discomfort. Had not received any morphine or ativan overnight. Had upper airway congestion earlier that responded well to Robinul and increased scopolamine. Objective Last 24 Hrs of Vital Signs/I&O Vital Signs Date Time Temp Pulse Resp B/P B/P Pulse O2 O2 Flow FiO2 Mean Ox Delivery Rate 06/28 0800 Nasal 2.0L Cannula 06/28 0644 98.9 90 18 89/33 95 Nasal 2.0L Cannula 06/28 0000 Nasal 2.0L Cannula 06/27 2256 98.7 81 18 70/50 94 Room Air 06/27 1600 Nasal 2.0L Cannula 06/27 1500 99.1 83 16 88/54 98 Nasal 2.0L Cannula Physical Exam General Appearance: no apparent distress, comfortable, sleeping Head: normal appearance Respiratory: no respiratory distress, RR-18 Current Medications: Current Medications Sig/Cecily Start time Last Medication Dose Route Stop Time Status Admin Acetaminophen 650 MG Q4P PRN 06/27 1415 AC NC Artificial Tears 2 GTT Q2P PRN 06/27 1415 AC OU Bisacodyl 10 MG DAILY NEEDED PRN 06/27 1415 AC NC Glycerin/Mineral Oil 1 ADAMARIS Q8P PRN 06/27 1415 AC TOP Glycopyrrolate 400 MCG Q4P PRN 06/28 0945 AC 06/28 IV 0944 Glycopyrrolate 400 MCG Q4P PRN 06/27 1415 DC SC Lorazepam 1 MG Q1 NEEDED PRN 06/28 0945 AC IV Lorazepam 1 MG Q4P PRN 06/27 1415 DC IV Morphine Sulfate 4 MG Q1 NEEDED PRN 06/28 0945 AC IV Morphine Sulfate 1 MG Q2P PRN 06/27 1415 DC 06/28 IV 0835 Prochlorperazine 10 MG Q6-PRN PRN 06/27 1515 AC IV Prochlorperazine 25 MG Q6-PRN PRN 06/27 1415 DC IV Scopolamine HBr 1 PAT Q72 06/30 1000 DC TOP Scopolamine HBr 2 PAT Q72 06/28 1000 AC 06/28 TOP 0944 Scopolamine HBr 1 PAT Q72 06/27 1500 DC TOP 06/28 0959 Assessment/Plan Assessment/Recommendations: Mrs Carpenter is an 81-year-old female with a PMH of hypertension, right-sided hydronephrosis secondary to nephrolithiasis s/p lithotripsy 2014, vaginal carcinoma s/p radiation and chemotherapy, history of recurrent UTIs and chronic vaginitis, left ankle fracture with displaced bimalleolar fracture currently with septic shock of presumed urologic origin, multi-organ failure. Currently comfortable. Medications adjusted this am by Dr. Stevenson. Dr. Marc to remove cast today to LLE.
[2016-06-28 15:14] VITALS: BP 90/50
--- NOTE | 2016-06-28 16:00 | NUR ---
PT APPEARS SWEATY AND WARM SKIN TO THE TOUCH, MULTIPLE BLANKETS ON PT, RECTAL TEMP 99.6 AT THIS TIME, BLANKETS REMOVED EXCEPT FOR SHEET, WILL CONTINUE TO MONITOR
--- NOTE | 2016-06-28 21:06 | NUR ---
LATE ENTRY: CALL PLACED TO NURSING SANDWICH PEDDLER IN BEGINNING OF SHIFT REGARDING CAST SAW TO REMOVE CAST FROM PT'S LLE. CAST SAW DELIEVERED TO FLOOR BY NURSING SANDWICH PEDDLER, CALL PLACED TO [facility] TO COME TO FLOOR TO ASSIST IN REMOVAL. AWAITING ROBERT ARRIVAL.
--- NOTE | 2016-06-28 21:09 | NUR ---
SHIFT NOTE- PT DROWSY/ MINIMALLY RESPONSIVE. RESPONDING TO VERBAL AND TACTILE STIMULI IN BEGINNING OF SHIFT. ON 2L NC. SOME AUDIBLE CONGESTION HEARD- IV RUBINOL GIVEN. [address] INCT OF URINE-INCT CARE GIVEN. DTI TO COCCYX CREAM APPLIED. FAMILY REFUSING SIZEWIZE MATTRESS. RIJ TLC, ALL THREE LUMENS WITH + BLOOD RETURN AND FLUSH WITHOUT DIFFICULTY. EDEMA TO GROIN AND VAGINAL AREA, AND TO BLE. CAST TO LLE- AWAITING REMOVAL. IV MORPHINE AND IV ATIVAN GIVEN AT 1600- APPROACHED BY FAMILY STATING THAT THEY ARE CONCERNED THAT SHE IS IN PAIN, RR 12-14 AT THIS TIME, NONLABORED. SOME TWITCHING MOVEMENTS OF HANDS. NO MOANING. FAMILY STATING THEY WISH FOR HER TO BE MEDICATED AT THIS TIME. COT PROVIDED FOR FAMILY WELL, THEY WILL BE STAYING OVERNIGHT. EMOTIONAL SUPPORT GIVEN. WILL CONTINUE TO MONITOR.
[2016-06-29 07:33] VITALS: BP 82/40
--- NOTE | 2016-06-29 08:00 | NUR ---
0800: PT MINIMALLY RESPONSIVE, CONGESTED AT TIMES, RUBINOL GIVEN ORDERED, NO SYMPTOMS OF PAIN NOTED, [address] AT 2 LITERS VIA N/C, FAMILY AT BEDSIDE
--- NOTE | 2016-06-29 09:19 | PN- Att Addend ---
Attending Addendum Attending Brief Note Patient appears comfortable with agonal breathing. Anticipate within 24- 48 hours. We'll continue current treatment plan.
--- NOTE | 2016-06-29 12:00 | NUR ---
1200: PT CONGESTED , RUBINOL GIVEN ORERED, PLAN OF CARE REVIEWED WITH FAMILY, THEY VERBALIZE UNDERSTANDING, PASTORAL CARE AT BEDSIDE THIS SHIFT
--- NOTE | 2016-06-29 16:46 | PN- Hospice ---
Subjective Subjective: Family at bedside. Pt appears comfortable. Responsive minimally with repositioning. Received morphine x 3 and ativan x 2 in past 24 hours. Robinul x 6 past 24 hours. Objective Last 24 Hrs of Vital Signs/I&O Vital Signs Date Time Temp Pulse Resp B/P B/P Pulse O2 O2 Flow FiO2 Mean Ox Delivery Rate 06/29 0800 Nasal 2.0L Cannula 06/29 0733 98.6 89 19 82/40 91 Nasal Cannula Physical Exam General Appearance: no apparent distress, comfortable, agonal breathing Respiratory: RR-8, agonal. Upper airway congestion. Cardiovascular: regular rate/rhythm Extremities: LLE cast removed Assessment/Plan Assessment/Recommendations: Mrs Carpenter is an 81-year-old female with a PMH of hypertension, right-sided hydronephrosis secondary to nephrolithiasis s/p lithotripsy 2014, vaginal carcinoma s/p radiation and chemotherapy, history of recurrent UTIs and chronic vaginitis, left ankle fracture with displaced bimalleolar fracture currently with septic shock of presumed urologic origin, multi-organ failure. Congestion-increase scopolamine to 3 patches, schedule Robinul every 4 hours, continue prn dose every 4 hours as well.
--- NOTE | 2016-06-29 22:26 | NUR ---
PT REMAINS UNRESPONSIVE, RR 12-13 AT THIS TIME, SHALLOW, NO SIGNS OF DISTRESS, ON 2L NC. FAMILY AT BEDSIDE. RIJ TLC INTACT. MEDICATED PER EMAR WITH IV RUBINOL SCHEDULED. TURN AND REPOSITIONED-INCT CARE PROVIDED. DTI TO COCCYX, BARRIER CREAM APPLIED. MOUTH CARE GIVEN, SKIN CARE PROVIDED. WILL CONTINUE TO MONITOR
[2016-06-30 07:00] VITALS: BP 85/46
--- NOTE | 2016-06-30 08:00 | NUR ---
CARE ASSUMED BY THIS RN. PT IS UNRESPONSIVE. RR 5 AND NON-LABORED WITH SOME APNEA. SCOPALAMINE PATCH X [address], 2 TO RIGHT EAR AND 1 TO LEFT EAR. PT SLIGHTLY CONGESTED. RUBINOL SCHEDULED Q4H. FAMILY AT BEDSIDE. EDUCATION PROVIDED ABOUT AND DYING PROCESS. MOUTH CARE GIVEN. WILL MONITOR.
--- NOTE | 2016-06-30 09:47 | PN- Att Addend ---
Attending Addendum Attending Brief Note Patient appears comfortable with agonal breathing. Anticipate within 24- 48 hours. We'll continue current treatment plan. Current Medications Sig/Cecily Start time Last Medication Dose Route Stop Time Status Admin Acetaminophen 650 MG Q4P PRN 06/27 141 AC OK Artificial Tears 2 GTT Q2P PRN 06/27 1415 AC OU Bisacodyl 10 MG DAILY NEEDED PRN 06/27 1415 AC OK Glycerin/Mineral Oil 1 ADAMARIS Q8P PRN 06/27 141 AC TOP Glycopyrrolate 400 MCG Q4 06/29 1800 AC 06/30 IV 0558 Glycopyrrolate 400 MCG Q4P PRN 06/28 0945 AC 06/29 IV 2149 Lorazepam 1 MG Q1 NEEDED PRN 06/28 0945 AC 06/29 IV 1430 Morphine Sulfate 4 MG Q1 NEEDED PRN 06/28 0945 AC 06/29 IV 1431 Prochlorperazine 10 MG Q6-PRN PRN 06/27 1515 AC IV Scopolamine HBr 1 PAT Q72 06/30 1000 DC TOP Scopolamine HBr 3 PAT Q72 06/29 1615 AC 06/29 TOP 1901 Scopolamine HBr 2 PAT Q72 06/28 1000 DC 06/28 TOP 0944
--- NOTE | 2016-06-30 11:00 | NUR ---
PT REMAINS UNRESPONSIVE. RR 8 AND NON-LABORED. FULL BED BATH GIVEN. HEENA ULCER NOTED TO COCCYX WITH MILD DRAINAGE. MINIMAL URINARY INCONTINENCE. LOTION APPLIED. MOUTH CARE GIVEN. COMFORT CART ORDERED FOR FAMILY. WILL MONITOR.
--- NOTE | 2016-06-30 15:11 | PN- Hospice ---
Subjective Subjective: Family at bedside. Pt has not received morphine or ativan overnight. She appears comfortable. Objective Last 24 Hrs of Vital Signs/I&O Vital Signs Date Time Temp Pulse Resp B/P B/P Pulse O2 O2 Flow FiO2 Mean Ox Delivery Rate 06/30 0800 Nasal 2.0L Cannula 06/30 0700 98.8 95 20 85/46 94 Nasal 1.0L Cannula 06/29 1600 Nasal Cannula Physical Exam General Appearance: no apparent distress, comfortable Respiratory: audible congestion Cardiovascular: regular rate/rhythm Extremities: no mottling noted Assessment/Plan Assessment/Recommendations: Mrs Carpenter is an 81-year-old female with a PMH of hypertension, right-sided hydronephrosis secondary to nephrolithiasis s/p lithotripsy 2014, vaginal carcinoma s/p radiation and chemotherapy, history of recurrent UTIs and chronic vaginitis, left ankle fracture with displaced bimalleolar fracture currently with septic shock of presumed urologic origin, multi-organ failure. Congestion-medications at max. Discussed with nursing to trial head down, morphine for secretions
[2016-07-01 07:00] VITALS: BP 64/32
--- NOTE | 2016-07-01 08:52 | PN- Att Addend ---
Attending Addendum Attending Brief Note Patient appears comfortable with agonal breathing. Anticipate within 24- 48 hours. We'll continue current treatment plan. Current Medications Sig/Cecily Start time Last Medication Dose Route Stop Time Status Admin Acetaminophen 650 MG Q4P PRN 06/27 141 AC CO Artificial Tears 2 GTT Q2P PRN 06/27 1415 AC OU Bisacodyl 10 MG DAILY NEEDED PRN 06/27 1415 AC CO Glycerin/Mineral Oil 1 ADAMARIS Q8P PRN 06/27 1415 AC 06/30 TOP 1005 Glycopyrrolate 400 MCG Q4 06/29 1800 AC 07/01 IV 0546 Glycopyrrolate 400 MCG Q4P PRN 06/28 0945 AC 06/30 IV 1714 Lorazepam 1 MG Q1 NEEDED PRN 06/28 0945 AC 06/29 IV 1430 Morphine Sulfate 4 MG Q1 NEEDED PRN 06/28 0945 AC 06/29 IV 1431 Prochlorperazine 10 MG Q6-PRN PRN 06/27 1515 AC IV Scopolamine HBr 1 PAT Q72 06/30 1000 DC TOP Scopolamine HBr 3 PAT Q72 06/29 1615 AC 06/29 TOP 1901 Vital Signs Date Time Temp Pulse Resp B/P B/P Pulse O2 O2 Flow FiO2 Mean Ox Delivery Rate 07/01 0700 98.4 102 12 64/32 92 Nasal 2.0L Cannula 07/01 0000 Nasal 2.0L Cannula 06/30 1600 Nasal 2.0L Cannula
--- NOTE | 2016-07-01 10:00 | NUR ---
PATIENT GIVEN FULL BED BATH BY RN AND MST. OPENNED EYES WITH REPOSITIONING AND MOANED SLIGHTLY. PATIENT REMAINS ON 2L WITH STABLE RR BETWEEN 10-12. MILD CONGESTION NOTED. SCHEDULED RUBINOL GIVEN. SCOPALAMINE PATCH X [address] POSITIONED IN [place] DURING CARE AND DRAINED MODERATE AMOUNT OF GREEN PHLEGM. ORAL SUCTIONING AND CARE PROVIDED. REPOSITIONED TO RIGHT SIDE FOR COMFORT. HEENA ULCER REMAINS IN PLACE. SCANT PURULENT URINE NOTED. PT GIVEN IV PRN MORPHINE FOR MOANING. FAMILY UPDATED ON MEDICATIONS. QUESTIONS ANSWERED CONCERNING AND DYING PROCESS. EMOTIONAL SUPPORT PRN. WILL MONITOR.
--- NOTE | 2016-07-01 11:55 | NUR ---
PT REMAINS UNRESPONSIVE. RR 10 AND NON-LABORED. MILD CONGESTION REMAINS. FAMILY AT BEDSIDE, NOTICING THAT FACIAL COLORING IS CHANGING. EDUCDATED ON DYING PROCESS. PERIODS OF APNEA NOTED. WILL MONITOR.
--- NOTE | 2016-07-01 13:34 | PN- Hospice ---
Subjective Subjective: Family at bedside. Pt unresponsive, agonal breathing. Appears comfortable. Received morphine once this am, no ativan. Objective Last 24 Hrs of Vital Signs/I&O Vital Signs Date Time Temp Pulse Resp B/P B/P Pulse O2 O2 Flow FiO2 Mean Ox Delivery Rate 07/01 08 Nasal 2.0L Cannula 07/01 699 98.4 102 12 64/32 92 Nasal 2.0L Cannula 07/01 0000 Nasal 2.0L Cannula 07/01 1599 Nasal 2.0L Cannula Intake & Output 07/01 1600 07/01 0800 07/01 0000 Intake Total 40 Output Total Balance 40 Intake, IV 40 Physical Exam General Appearance: no apparent distress Ears, Nose, Throat: dry mucus membranes Respiratory: agonal respirations, RR-10 Cardiovascular: regular rate/rhythm Extremities: mottling bilat. hands, bilat. LEs up to knees Skin: pallor Current Medications: Current Medications Sig/Cecily Start time Last Medication Dose Route Stop Time Status Admin Acetaminophen 650 MG Q4P PRN 06/27 1415 AC WI Artificial Tears 2 GTT Q2P PRN 06/27 1415 AC OU Bisacodyl 10 MG DAILY NEEDED PRN 06/27 1415 AC WI Glycerin/Mineral Oil 1 ADAMARIS Q8P PRN 06/27 1415 AC 06/30 TOP 1005 Glycopyrrolate 400 MCG Q4 06/29 1800 AC 07/01 IV 1322 Glycopyrrolate 400 MCG Q4P PRN 06/28 0945 AC 06/30 IV 1714 Lorazepam 1 MG Q1 NEEDED PRN 06/28 0945 AC 06/29 IV 1430 Morphine Sulfate 4 MG Q1 NEEDED PRN 06/28 0945 07/01 IV 0930 Prochlorperazine 10 MG Q6-PRN PRN 06/27 1515 IV Scopolamine HBr 3 PAT Q72 06/29 1615 06/29 TOP 1901 Assessment/Plan Assessment/Recommendations: Mrs Carpenter is an 81-year-old female with a PMH of hypertension, right-sided hydronephrosis secondary to nephrolithiasis s/p lithotripsy 2014, vaginal carcinoma s/p radiation and chemotherapy, history of recurrent UTIs and chronic vaginitis, left ankle fracture with displaced bimalleolar fracture currently with septic shock of presumed urologic origin, multi-organ failure. Actively dying. Support provided to family.
[2016-07-02 07:09] VITALS: BP 58/46
--- NOTE | 2016-07-02 07:47 | NUR ---
AT APPROX 0640, JOANN SALDANA CAME TO GET THIS RN THAT THIS PATIENT WAS NOT BREATHING. THIS RN ENTERED ROOM AND FOUND PATIENT UNRESPONSIVE, WITH ZERO RESPIRATIONS IN 60 SECONDS. PATIENT HAD NO RADIAL PULSE OR APICAL HEART RATE. PATIENT PUPILS WERE FIXED AND NON-REACTIVE TO LIGHT. TIME OF CALLED AT 0642. FAMILY AT BEDSIDE. NURSING SOCIAL SERVICES SPECIALIST NOTIFIED. ADMITTING NOTIFIED. [facility] CONTACTED AND NOTIFIED. PHONE CALL RECEIVED FROM BLANQUITA FROM [facility], PATIENT WAS DECLINED FOR ANY DONATIONS. DR OCASIO'S OFFICE WAS CALLED AND A MESSAGE WAS LEFT. FAMILY REMAINS AT BEDSIDE. REPORT PAST TO JOANN CERNA AT THIS TIME.
--- NOTE | 2016-07-12 13:31 | Discharge Summary ---
Visit Information Visit Dates Admission Date: 06/27/16 Discharge Date: 07/02/16 Hospital Course Course Attending Physician: FREDDY OCASIO MD Primary Care Physician: TIM RANDALL MD Hospital Course: Mrs Carpenter is an 81-year-old female with a PMH of hypertension, right-sided hydronephrosis secondary to nephrolithiasis s/p lithotripsy 2014, vaginal carcinoma s/p radiation and chemotherapy, history of recurrent UTIs and chronic vaginitis, left ankle fracture with displaced bimalleolar fracture currently with septic shock of presumed urologic origin, multi-organ failure. She was kept comfortable with morphine and ativan until she peacefully with her family at bedside. Allergies: Coded Allergies: meperidine (From DEMEROL) (DIARRHEA 05/06/16) Disposition Summary Disposition Principal Diagnosis: Septic shock Multi-organ Failure Additional Diagnosis: None Discharge Disposition: Discharge Instructions General Discharge Information Code Status: Hospice Patient's Diet: N/A Patient's Activity: N/A Follow-Up Instructions/Appts: N/A Copies To: TIM RANDALL MD
== END 2016-07-02 06:42 | disposition expired | DRG 871 ==
LOC: 2NA 13:57
PROVIDERS: ADMIT Internal Medicine
DX: A41.9 Sepsis, unspecified organism (principal); R65.21 Severe sepsis with septic shock; N13.30 Unspecified hydronephrosis; C52 Malignant neoplasm of vagina; Z51.5 Encounter for palliative care
CPT/HCPCS: J0780